=== PATIENT | male | born 1935 | race Caucasian/White ===

== ENCOUNTER 2022-11-26 11:58 | Inpatient (IN) | payer OTHER ==
--- OUTSIDE RECORDS SUMMARY | 2022-11-28 15:45 | XMS REPORT | Continuity of Care Document ---
:1935 Author Organization [facility] t Address [address] [facility] [facility] [place] [address] Care Team Providers Name Role Phone Nilton Huerta Primary Care Physician Bryan Guerra Attending Clinician Unavailable RYAN SHER Attending Clinician Unavailable STANISLAW REYES Attending Clinician Unavailable Simone VILLANUEVA, Gage Attending Clinician Nilton Paiz DO Attending Clinician Gilmer Erazo Attending Clinician Enzo VILLANUEVA, Marion Rose Attending Clinician Stanislaw Reyes MD Attending Clinician [phone] Pob, [facility] Attending Clinician Unavailable Gilmer Harrison MD Attending Clinician GILMER HARRISON Attending Clinician Unavailable ANDRE BRICE Attending Clinician Unavailable Andre Brice DO Attending Clinician Doctor Unassigned, [place] Attending Clinician Unavailable Apurva THOMAS, Kareem Morales Attending Clinician Unavailable Beata Vazquez MD Attending Clinician BEATA VAZQUEZ Attending Clinician Unavailable Vaccine, [facility] Attending Clinician Unavailable Zaid óLpez DO Attending Clinician ZAID LÓPEZ Attending Clinician Unavailable Prince Joe Attending Clinician Unavailable GAGE NICHOLS Attending Clinician Unavailable Gilmer Henley MD Attending Clinician GILMER HENLEY Attending Clinician Unavailable MISSY LEMOS Attending Clinician Unavailable Beata FLOREZ, Folushlatisha F Attending Clinician Cori Beauchamp MD Attending Clinician Kalee Cho MD Attending Clinician Missy Lemos MD Attending Clinician Nikhil Ge MD Attending Clinician Nurse, [facility] Pob Immunization Attending Clinician Unavailable Adry Hill RN Attending Clinician Ryan Sher MD Attending Clinician Ari Hernandez MD Attending Clinician Jose Case CRNA Attending Clinician Jonh Cárdenas MD Attending Clinician Only, [facility] Test Attending Clinician Unavailable Emil Warner Attending Clinician Unavailable AMBERLY GALLEGO Attending Clinician Unavailable FITZ BLACKWELL Attending Clinician Unavailable EMIL WARNER Attending Clinician Unavailable Emil Warner Admitting Clinician Unavailable RYAN SHER Admitting Clinician Unavailable GILMER ERAZO Admitting Clinician Unavailable Gilmer Erazo Admitting Clinician ANDRE BRICE Admitting Clinician Unavailable Nilton Huerta Admitting Clinician Unavailable Beata Vazquez MD Admitting Clinician BEATA VAZQUEZ Admitting Clinician Unavailable Prince Joe Admitting Clinician Unavailable GAGE NICHOLS Admitting Clinician Unavailable Bryan Guerra Admitting Clinician Unavailable CORI BEAUCHAMP Admitting Clinician Unavailable Cori Beauchamp MD Admitting Clinician Ari Hernandez MD Admitting Clinician KNOW, DOES_NOT Admitting Clinician Unavailable Payers Payer Name Policy Type Policy Number Effective Date Expiration Date Eleanor valdivia MEDICARE PART A [id number] 1999 \\T\\ B 00:00:00 [employer] [id number] 2019 00:00:00 COMMERCIAL [id number] 1999 1999 NON-CONTRACT 00:00:00 00:00:00 GENERIC Problems Condition Condition Condition Status Onset Resolution Last Treating Co mments Source Name Details Category Date Date Treatment Clinician Date Syncope, Syncope, Disease Active 2022-02 Unive rs unspecifie unspecifie 0-10 it y of d syncope d syncope 00:00: [place]ry s type type 00 Medical Branch Syncope Syncope Disease Active Univers and and 7-12 ity of collapse collapse 00:00: [place] 00 Medical Branch 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-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 00:00: [place] involving involving 00 Med[place]oyd [place] coronary coronary artery of artery of [place] heart heart without without angina angina pectoris pectoris Chronic Chronic Disease Active Univers atrial atrial 7-11 ity of fibrillati fibrillati 00:[place] 00 Medical [place] Pacemaker Pacemaker Disease Active Uni vers 7-11 ity of 00:00: [place] 00 Medical Branch 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 00:00: [place] stenosis stenosis 00 Medica l Branch CHARISSA (acute CHARISSA (acute Disease Active U marzena kidney kidney 7-11 ity of injury) injury) 00:00: [place] 00 Medical Branch 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-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 00:00: [place] involving involving 00 Medi loyd [place] coronary coronary artery of artery of [place] heart heart without without angina angina pectoris pectoris Dizziness Dizziness Disease Active Uni vers 7-10 ity of 00:00: [place] [facility] GIB GIB Disease Active 2020-02 Univers (gastroint (gastroint 1-29 it y of estinal estinal 00:00: [place] bleeding) bleeding) 00 Medi loyd Branch Symptomati Symptomati Disease Active U nivers c anemia c anemia 8-13 ity of 00:00: [place] 00 Medical Branch 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, carcinoma, 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 00:00: [facility] 00 l Renal mass Renal mass Disease Active M ethodi 08-01 st 00:00: [facility] 00 l Syncope Syncope Disease Active 2014-02 Univers 2-24 ity of 00:00: [place] [facility] Essential Essential Disease Active 2014-02 Uni vers hypertensi hypertensi 2-24 it y of on on 00:00: [place] [facility] 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 2-24 ity of mellitus mellitus 00:00: [place] [facility] Renal Renal Disease Active 2014-02 Univers failure failure 2-24 ity of 00:00: [place] 00 Medical Branch Allergies, Adverse Reactions, Alerts Allergy Allergy Status Severity Reaction(s) Onset Inactive Treating Comm ents Source Name Type Date Date Clinician Kenna Starkeyensi Active Method i in G ty to 06-01 st adverse 00:00: Hospita reaction 00 l s to drug Penicill Propensi Active Other - See 2012-02 Passed U nivers ins ty to comments 2-09 out per ity of adverse 00:00: patient [place] reaction 00 Medical s to Branch drug Penicill Propensi Active Other - See 2012-02 Passed U nivers ins ty to comments 2-09 out per ity of adverse 00:00: patient [place] reaction 00 Medical s to Branch drug PENICILL Drug Active Other-Cmnt 2012-02 Univ ers INS Class 2-09 ity of 00:00: [place] 00 Medical Branch Penicill Propensi Active Other - See 2012-02 Passed U nivers ins ty to comments 2-09 out per ity of adverse 00:00: patient [place] reaction Medical s to Branch drug No Known DA Active U 2006-02 [facility] Contrast 0 [facility] Allergie 00:00: [address] No Known DA Active U 2006-02 [facility] Food 0- [place] Allergie 00:00: [address] No Known DA Active U 2006-02 [facility] Other 0- Allergie 00:00: [address] PENICILL DA Active U 2006-02 [facility] IN 0 00:00: [address] Family History Family Member Diagnosis Comments Start Date Stop Date Source Natural father Heart disease [facility] Natural mother Heart disease [facility] Social History Social Habit Start Date Stop Date Quantity Comments Source Sexual orientation [facility] History of tobacco Passive smoker Un iversity of use [facility] Gender identity [facility]it y [place] [facility] History of Social 2022-04-20 2022-04-[address] function 00:00:00 00:00:00 Hospital Exposure to 2021-08-11 2021-08-21 Not sure [facility] SARS-CoV-2 (event) 00:00:00 05:34:00 [facility] Tobacco use and 2021-08-21 2021-08-21 Smokeless tobacco Un iversity of exposure 00:00:00 00:00:00 non-user [facility] Alcohol intake 2019-09-26 2019-09-26 Current drinker [facility] 00:00:00 00:00:00 of [facility] (finding) Alcohol Comment 2017-08-04 2017-08-04 occasional Sikhism 00:00:00 00:00:00 Hospital Sex Assigned At [birth year] Sikhism 00:00:00 00:00:00 Hospital Smoking Status Start Date Stop Date Source Never smoked tobacco [facility] [place] [facility] Medications Ordered Filled Start Stop Current Ordering Indication Dosage Frequency Signature Comments Components Source Medication Medication Date Date Medication? Clinician (SIG) Name Name NaCl 0.9% 2022-02 No 500mL at 999 Univ ers (NS) bolus 0-17 10-17 mL/hr, 500 it y of infusion 15:00: 14:13 mL, IV [place] 500 mL 00 :00 Piggyback, Medical ONCE, 1 Branch dose, On Sun11/28/22 at 1000, STAT pioglitazon 2022-02 Yes 15mg Take 15 mg Univers e 15 mg 0-17 by mouth ity of tablet 14:16: daily. [place] [address] Medical Branch aspirin 81 2022-02 Yes 81mg Take 81 mg U nivers mg chewable 0-17 by mouth ity of tablet 14:16: daily. [address] Branch midodrine 5 2022-02 Yes 5mg Take 1 Univ ers mg tablet 0-17 tablet by ity o f 14:16: mouth in [place] [address] the Medical morning Branch and 1 tablet at noon and 1 tablet in the evening. digoxin 125 2022-02 Yes 125ug Take 1 Uni vers mcg (0.125 0-17 tablet by ity of mg) tablet 14:16: mouth in [facility] 36 the Medical morning. Branch clopidogreL 2022-02- No 75mg Take 75 mg Univers 75 mg 0-17 10-17 by mouth ity of tablet 11:33: 00:00 daily. [place] 48 :00 [facility] Branch thiamine 2022-02- No 100mg IV Univers (VITAMIN 0-15 10-15 Piggyback, ity of B1) 100 mg 14:00: 14:48 DAILY, 1 [place] NaCl 00 :00 dose, Medical 0.9% (NS) First dose Bran ch piggyback on 11/26/22 at 0900, 50 mL thiamine 2022-02- No 100mg 100 mg, Univ ers (VITAMIN 0-14 10-14 Oral, ity of B1) tablet 14:00: 17:44 DAILY, [place] 100 mg 00 :02 First dose Medical on Sun Branch 11/25/22 at 0900, Until Discontinu ed, Routine NaCl 0.9% 2022-02 No 250mL at 999 Univ ers (NS) IV 0-13 10-13 mL/hr, IV ity of infusion 17:30: 17:37 Infusion, [place] as 250 mL 00 :00 ONCE, 1 Medical dose, On Branch 11/24/22 at 1230, Routine sennosides 2022-02 Yes 8.6mg 8.6 mg, Uni vers (SENOKOT) 0-13 Oral, ity of tablet 8.6 14:00: DAILY, [place] mg 00 First dose Medical on Fri Branch 11/24/22 at 0900, Until Discontinu ed, Routine polyethylen 2022-02 Yes 17g 17 g, Unive rs e glycol 0-13 Oral, ity of 3350 powder 14:00: DAILY, [place] 17 g 00 First dose Medical on Sun Branch 11/24/22 at 0900, Until Discontinu ed, Routine atorvastati 2022-02 Yes 40mg 40 mg, Univ ers n (LIPITOR) 0-12 Oral, QHS, it y of tablet 40 02:00: First dose [place] mg 00 on Sun Medical 11/22/22 Branch at 2100, Until Discontinu ed, Routine sulfur 2022-02- No 5mL 5 mL, Univers hexafluorid 011-22 Intravenou i ty of e microsphr 14:50: 14:50 s, ONCE, 1 [place] (LUMASON) 00 :00 dose, On Medica l injection 5 Sun Branch mL 11/22/22 at 0950, Routine
hourly team members approving Restricted medication : REN GREENE pioglitazon 2022-02 Yes 15mg 15 mg, Univ ers e (ACTOS) 0-11 Oral, ity of tablet 15 14:00: DAILY, [place] mg 00 First dose Medical on Sun Branch 11/22/22 at 0900, Until Discontinu ed, Routine digoxin 2022-02 Yes 125ug 125 mcg, Unive rs (LANOXIN) 0-11 Oral, ity of tablet 125 14:00: DAILY, [place] mcg 00 First dose Medical on Sun Branch 11/22/22 at 0900, Until Discontinu ed, Routine aspirin 2022-02 Yes 81mg 81 mg, Univers chewable 0-11 Oral, ity of tablet 81 14:00: DAILY, [place] mg 00 First dose Medical on Sun Branch 11/22/22 at 0900, Until Discontinu ed, Routine clopidogreL 2022-02- No 75mg 75 mg, Uni vers (PLAVIX) 75 0-14 Oral, ity of mg tablet 14:00: 11:43 DAILY, [place] 75 mg 00 :13 First dose Medical on Sun Branch 11/22/22 at 0900, Until Discontinu ed, Routine docusate 2022-02 No 100mg 100 mg, Univ ers (COLACE) 0-12 22- Oral, ity of capsule 100 14:00: 04:20 DAILY, [place] as mg 00 :32 First dose Medical on [facility] 11/22/22 at 0900, Until Discontinu ed, Routine midodrine 2022-02 Yes 5mg 5 mg, Univers (PROAMATINE 0-11 Oral, TID, it y of ) tablet 5 13:00: First dose [place] mg 00 on [facility] 11/22/22 Branch at 0800, Until Discontinu ed, Routine levothyroxi 2022-02 Yes 137ug 137 mcg, U nivers ne 0-11 Oral, ity of (SYNTHROID) 11:00: QAM-0600, [place] tablet 137 00 First dose Med ical mcg on Sun [place] 11/22/22 at 0600, Until Discontinu ed, Routine pioglitazon 2022-02 Yes 15mg Take 15 mg Univers e 15 mg 0-11 by mouth ity of tablet 03:49: daily. [address] aspirin 81 2022-02 Yes 81mg Take 81 mg U nivers mg chewable 0-11 by mouth ity of tablet 03:49: daily. [address] clopidogreL 2022-02 Yes 75mg Take 75 mg Univers 75 mg 0-11 by mouth ity of tablet 03:49: daily. [address] heparin 2022-02 Yes 5000U 5,000 Univers (porcine) 0-11 Units, ity of injection 03:00: Subcutaneo [place] 5,000 Units 00 us, Q8H, Medi loyd First dose Branch on 11/21/22 at 2200, Until Discontinu ed, Routine Sliding 2022-02 Yes Subcutaneo Univ ers Scale 0-10 us, TID ity of Insulin - 22:00: MEALS+HS, [place] as Lispro 00 First dose Medical (HumaLOG) on [facility] 11/21/22 at 1700, Until Discontinu ed, Routine glucagon 2022-02 Yes 1mg 1 mg, Univers (GLUCAGEN 0-10 Intramuscu ity of DIAGNOSTIC 21:20: [place], PRN, [place] KIT) 34 Starting Medical injection 1 on [facility] mg 11/21/22 at 1620, Until Discontinu ed, LAUREN, Blood Glucose < or = 70 mg/dL and patient is NPO, unable to swallow or has mental changes. dextrose 50 2022-02 Yes 25mL 25 mL, Univ ers % in water 0-10 Slow IV ity of (D50W) 21:20: Push, PRN, [place] injection 34 Starting Medica l 25 mL on [facility] 11/21/22 at 1620, Until Discontinu ed, LAUREN, Blood Glucose < or = 70 mg/dL and patient is NPO, unable to swallow or has mental status changes. ondansetron 2022-02 Yes 4mg 4 mg, Slow Univers (ZOFRAN 0-10 IV Push, ity of (PF)) 21:20: Q6HPRN, [place] injection 4 34 Starting Medi loyd mg on [facility] 11/21/22 at 1620, Until Discontinu ed, Routine, Nausea and Vomiting (N/V) acetaminoph 2022-02 Yes 650mg 650 mg, Un lolis en 0-10 Oral, ity of (TYLENOL) 21:20: Q6HPRN, [place] tablet 650 34 Starting Medic al mg on [facility] 11/21/22 at 1620, Until Discontinu ed, Routine, Pain (scale 1-3) gadobenate 2022- No [id number] .2mL/kg 0.2 mL/kg, Univers dimeglumine 08-28 Intravenou i ty of (MULTIHANCE 20:15: 20:10 s, ONCE, 1 [place] -20 mL) 00 :00 dose, On Medical injection [facility] Branch 0.2 mL/kg 08/28/22 at 1515, Routine NaCl 0.9% 2021- No 500mL at 999 Univ ers (NS) bolus 08-24-13 mL/hr, 500 it y of infusion 16:30: 15:36 mL, IV [place] 500 mL 00 :00 Piggyback, Medical ONCE, 1 Branch dose, On Sun08/24/21 at 1130, STAT pioglitazon Yes 15mg Take 15 mg Univers e 15 mg 7-13 by mouth ity of tablet 12:28: daily. [address] aspirin 81 0 Yes 81mg Take 81 mg U nivers mg chewable -13 by mouth ity of tablet 12:28: daily. [address] clopidogreL 2022-0 Yes 75mg Take 75 mg Univers 75 mg 7-13 by mouth ity of tablet 12:28: daily. [address] pioglitazon 2021-0 Yes 15mg Take 15 mg Univers e 15 mg 7-13 by mouth ity of tablet 12:28: daily. [address] aspirin 81 0 Yes 81mg Take 81 mg U nivers mg chewable 7-13 by mouth ity of tablet 12:28: daily. [address] clopidogreL 2021-0 Yes 75mg Take 75 mg Univers 75 mg 7-13 by mouth ity of tablet 12:28: daily. [address] pioglitazon 0 Yes 15mg Take 15 mg Univers e 15 mg 7-13 by mouth ity of tablet 12:28: daily. [address] aspirin 81 0 Yes 81mg Take 81 mg U nivers mg chewable 7-13 by mouth ity of tablet 12:28: daily. [address] clopidogreL 2021-0 Yes 75mg Take 75 mg Univers 75 mg 7-13 by mouth ity of tablet 12:28: daily. [address] pioglitazon 2021-0 Yes 15mg Take 15 mg Univers e 15 mg 7-13 by mouth ity of tablet 12:28: daily. [address] aspirin 81 0 Yes 81mg Take 81 mg U nivers mg chewable 7-13 by mouth ity of tablet 12:28: daily. [address] clopidogreL 2021-0 Yes 75mg Take 75 mg Univers 75 mg 7-13 by mouth ity of tablet 12:28: daily. [address] pioglitazon 2021-0 Yes 15mg Take 15 mg Univers e 15 mg 7-13 by mouth ity of tablet 12:28: daily. [address] aspirin 81 2021-0 Yes 81mg Take 81 mg U nivers mg chewable 7-13 by mouth ity of tablet 12:28: daily. [address] clopidogreL 2021-0 Yes 75mg Take 75 mg Univers 75 mg 7-13 by mouth ity of tablet 12:28: daily. [address] pioglitazon 2021-0 Yes 15mg Take 15 mg Univers e 15 mg 7-13 by mouth ity of tablet 12:28: daily. [address] aspirin 81 2022-0 Yes 81mg Take 81 mg U nivers mg chewable 7-13 by mouth ity of tablet 12:28: daily. [address] clopidogreL 2021-0 Yes 75mg Take 75 mg Univers 75 mg 7-13 by mouth ity of tablet 12:28: daily. [address] pioglitazon 2021-0 Yes 15mg Take 15 mg Univers e 15 mg 7-13 by mouth ity of tablet 12:28: daily. [address] aspirin 81 0 Yes 81mg Take 81 mg U nivers mg chewable 7-13 by mouth ity of tablet 12:28: daily. [address] clopidogreL 2021-0 Yes 75mg Take 75 mg Univers 75 mg 7-13 by mouth ity of tablet 12:28: daily. [address] pioglitazon 2021-0 Yes 15mg Take 15 mg Univers e 15 mg 7-13 by mouth ity of tablet 12:28: daily. [address] aspirin 81 0 Yes 81mg Take 81 mg U nivers mg chewable 7-13 by mouth ity of tablet 12:28: daily. [address] clopidogreL 2021-0 Yes 75mg Take 75 mg Univers 75 mg 7-13 by mouth ity of tablet 12:28: daily. [address] pioglitazon 2021-0 Yes 15mg Take 15 mg Univers e 15 mg 7-13 by mouth ity of tablet 12:28: daily. [address] aspirin 81 2021-0 Yes 81mg Take 81 mg U nivers mg chewable 7-13 by mouth ity of tablet 12:28: daily. [address] clopidogreL 2021-0 Yes 75mg Take 75 mg Univers 75 mg 7-13 by mouth ity of tablet 12:28: daily. [address] pioglitazon 2021-0 Yes 15mg Take 15 mg Univers e 15 mg 7-13 by mouth ity of tablet 12:28: daily. [address] aspirin 81 2021-0 Yes 81mg Take 81 mg U nivers mg chewable 7-13 by mouth ity of tablet 12:28: daily. [address] clopidogreL 2021-0 Yes 75mg Take 75 mg Univers 75 mg 7-13 by mouth ity of tablet 12:28: daily. [address] pioglitazon Yes 15mg Take 15 mg Univers e 15 mg 7-13 by mouth ity of tablet 12:28: daily. [address] aspirin 81 Yes 81mg Take 81 mg U nivers mg chewable 7-13 by mouth ity of tablet 12:28: daily. [address] clopidogreL Yes 75mg Take 75 mg Univers 75 mg 7-13 by mouth ity of tablet 12:28: daily. [address] pioglitazon Yes 15mg Take 15 mg Univers e 15 mg 7-13 by mouth ity of tablet 12:28: daily. [address] aspirin 81 Yes 81mg Take 81 mg U nivers mg chewable 7-13 by mouth ity of tablet 12:28: daily. [address] clopidogreL Yes 75mg Take 75 mg Univers 75 mg 7-13 by mouth ity of tablet 12:28: daily. [address] carvediloL 2021- No 12.5mg Take 12.5 Univers 12.5 mg 7-13 07-13 mg by ity of tablet 10:22: 00:00 mouth 2 [place] 46 :00 (two) Medical times Branch daily with meals. metoprolol 2021- No 50mg Take 50 mg Univers succinate -24 08-13 by mouth ity o f XL 50 mg 24 10:22: 00:00 daily. Ricardo as hr tablet 46 :00 Metoprolol [facility] midodrine 5 2021- No [id number] 5mg Take 1 Univers mg tablet 7-24 09- tablet by ity of 00:00: 04:59 mouth in [place] 00 :00 the Medical morning Branch and 1 tablet at noon and 1 tablet in the evening. Take with meals. Do all this for 30 days. midodrine 5 2021- No [id number] 5mg Take 1 Univers mg tablet 7-13 -13 tablet by ity of 00:00: 04:59 mouth in [place] 00 :00 the Medical morning Branch and 1 tablet at noon and 1 tablet in the evening. Take with meals. Do all this for 30 days. midodrine 5 2021- No [id number] 5mg Take 1 Univers mg tablet 08-2413 tablet by ity of 00:00: 04:59 mouth in [place] 00 :00 the Medical morning Branch and 1 tablet at noon and 1 tablet in the evening. Take with meals. Do all this for 30 days. NaCl 0.9% 0 2021- No 500mL at 100 [facility] ers (NS) bolus 08-23 07-12 mL/hr, 500 it y of infusion 16:45: 16:32 mL, IV [place] 500 mL 00 :00 Infusion, Medical ONCE, 1 Branch dose, On Sun08/23/21 at 1145, LAUREN midodrine Yes 5mg 5 mg, Univers (PROAMATINE 08-22 Oral, TID ity of ) tablet 5 22:00: MEALS, [place] mg 00 First dose Medical (after last modificati on) on Sun08/22/21 at 1700, Until Discontinu ed, Routine NaCl 0.9% 2021- No 500mL at 999 [facility] ers (NS) bolus 08-22-11 mL/hr, 500 it y of infusion 14:45: 13:37 mL, IV [place] 500 mL 00 :00 Piggyback, Medical ONCE, 1 Branch dose, On Sun08/22/21 at 0945, STAT clopidogreL 0 Yes 75mg 75 mg, [facility] ers (PLAVIX) 75 08-22 Oral, ity of mg tablet 14:00: DAILY, [place] 75 mg 00 First dose Medical on Sun [place] 08/22/21 at 0900, Until Discontinu ed, Routine aspirin 0 Yes 81mg 81 mg, Univers chewable 08-22 Oral, ity of tablet 81 14:00: DAILY, [place] mg 00 First dose Medical on Sun [place] 08/22/21 at 0900, Until Discontinu ed, Routine docusate 0 Yes 100mg 100 mg, Unive rs (COLACE) -11 Oral, ity of capsule 100 14:00: DAILY, [place] mg 00 First dose Medical on [facility] 08/22/21 at 0900, Until Discontinu ed, Routine levothyroxi 2021-0 Yes 137ug 137 mcg, U nivers ne 7-11 Oral, ity of (SYNTHROID) 11:00: QAM-0600, [place] tablet 137 00 First dose Med ical mcg on [facility] 08/22/21 at 0600, Until Discontinu ed, Routine atorvastati Yes 40mg 40 mg, Univ ers n (LIPITOR) 711 Oral, QHS, it y of tablet 40 02:00: First dose [place] mg 00 on [facility] 08/21/21 at Branch 2100, Until Discontinu ed, Routine glimepiride Yes 4mg 4 mg, Unive rs (AMARYL) 711 Oral, BID, ity o f tablet 4 mg 01:00: First dose [place] 00 on [facility] 08/21/21 at Branch 2000, Until Discontinu ed, Routine NaCl 0.9% 2021- No 1000mL at 75 [facility] ers (NS) IV 08-22 07-11 mL/hr, IV ity of infusion 00:00: 23:09 Infusion, [place] as 1,000 mL 00 :00 CONTINUOUS Medic al , Starting Branch on [place] 08/21/21 at 1900, Until [facility] 08/22/21 at 1809, Routine carvediloL 2021- No 12.5mg 12.5 mg, Univers (COREG) 08-21 07-11 Oral, BID ity of tablet 12.5 22:00: 13:30 MEALS, [place] mg 00 :46 First dose Medical on [facility] 08/21/21 at 1700, Until Discontinu ed, Routine Sliding Yes Subcutaneo [facility] ers Scale 7-10 us, AC+HS, ity of Insulin-Reg 21:30: First dose [place] ular + Fsbg 00 on [facility] l Testing 08/21/21 at Branch 1630, Until Discontinu ed, Routine dextrose Yes 250mL 250 mL, IV Un lolis 10% (D10W) 7-10 Infusion, ity of bolus 21:15: PRN - SEE [place] infusion 33 INSTRUCTIO Medic al 250 mL , Branch Administer over 60 Minutes, Other, If blood glucose is < or = 70 mg/dL and patient is unable to swallow or has mental status changes, Starting on [place] 08/21/21 at 1615
If blood glucose is < or = 70 mg/dL and patient is unable to swallow or has mental status changes (Give glucagon order if patient needs fluid restrictio n): IF IV access available: Dextrose 10%. 1. 125 mL (? bag) of D10W IV infusion - equivalent to 12.5 g dextrose 2. Blood glucose - draw blood glucose 15 minutes after D10W Administra tion. 3. If blood glucose is < 80 mg/dL, repeat.
glucagon 0 Yes 1mg 1 mg, Univers (GLUCAGEN 7-10 Intramuscu ity of DIAGNOSTIC 21:15: [place], PRN, [place] KIT) 18 Starting Medical injection 1 on [facility] mg 08/21/21 at 1615, Until Discontinu ed, LAUREN, Blood Glucose < or = 70 mg/dL and patient is unable to swallow or has mental changes. NaCl 0.9% 2021- No 500mL at 999 Univ ers (NS) bolus 08-21 07-10 mL/hr, 500 it y of infusion 19:00: 20:21 mL, IV [place] 500 mL 00 :00 Infusion, Medical ONCE, 1 Branch dose, On [place] 08/21/21 at 1400, STAT ondansetron 0 Yes 4mg 4 mg, Slow Univers (ZOFRAN 7-10 IV Push, ity of (PF)) 18:49: Q6HPRN, [place] injection 4 47 Starting Medi loyd mg on [facility] 08/21/21 at 1349, Until Discontinu ed, Routine, Nausea and Vomiting (N/V) acetaminoph 0 Yes 650mg 650 mg, Un lolis en 7-10 Oral, ity of (TYLENOL) 18:49: Q6HPRN, [place] tablet 650 40 Starting Medic al mg on [facility] 08/21/21 at 1349, Until Discontinu ed, Routine, Pain (scale 1-3) MULTIVITAMI 0 2021- No Take by Un lolis N ORAL 7-10 07-10 mouth. ity of 16:12: 00:00 [place] 58 :00 [facility] Branch DOCOSAHEXAN 2021- No Take by Un lolis OIC 7-10 07-10 mouth. ity of ACID/EPA 16:12: 00:00 [place] (FISH OIL 58 :00 Medical ORAL) Branch ERGOCALCIFE 2021- No Take by Un lolis ROL, 08-2110 mouth. ity of VITAMIN D2, 16:12: 00:00 [place] (VITAMIN D 58 :00 Medical ORAL) Branch ascorbic 2021- No 500mg Take 500 Uni vers acid, 08-21-10 mg by ity of vitamin C, 16:12: 00:00 mouth [place] 500 mg 58 :00 daily. Medical tablet Branch vitamin 2021- No 1000ug Take 1,000 U nivers B-12 1,000 08-21-10 mcg by ity of mcg tablet 16:12: 00:00 mouth [place] 58 :00 daily. Medical Branch NaCl 0.9% No IV Univers (NS) 08-21 Infusion, ity of PEDIATRIC 13:00: 22:49 at 75 [place] IV infusion 00 :43 mL/hr, Medica l CONTINUOUS Branch , Starting on 08/21/21 at 0800, Until 08/21/21 at 1749, Routine metoprolol 2020-02 Yes [id number] 12.5mg Take 0.5 Univers succinate 2-03 tablets by ity of XL 25 mg 24 00:00: mouth [place] hr tablet 00 daily. Medical Branch levothyroxi 2020-02 Yes [id number] 137ug Take 1 Univers ne 137 mcg 2-03 tablet by ity of tablet 00:00: mouth [place] 00 every Medical morning. Branch levothyroxi 2020-02 Yes [id number] 137ug Take 1 Univers ne 137 mcg 2-03 tablet by ity of tablet 00:00: mouth [place] 00 every Medical morning. Branch levothyroxi 2020-02 Yes [id number] 137ug Take 1 Univers ne 137 mcg 2-03 tablet by ity of tablet 00:00: mouth [place] 00 every Medical morning. Branch levothyroxi 2020-02 Yes [id number] 137ug Take 1 Univers ne 137 mcg 2-03 tablet by ity of tablet 00:00: mouth [place] 00 every Medical morning. Branch levothyroxi 2020-02 Yes [id number] 137ug Take 1 Univers ne 137 mcg 2-03 tablet by ity of tablet 00:00: mouth [place] 00 every Medical morning. Branch levothyroxi 2020-02 Yes [id number] 137ug Take 1 Univers ne 137 mcg 2-03 tablet by ity of tablet 00:00: mouth [place] 00 every Medical morning. Branch levothyroxi 2020-02 Yes [id number] 137ug Take 1 Univers ne 137 mcg 2-03 tablet by ity of tablet 00:00: mouth [place] 00 every Medical morning. Branch levothyroxi 2020-02 Yes [id number] 137ug Take 1 Univers ne 137 mcg 2-03 tablet by ity of tablet 00:00: mouth [place] 00 every Medical morning. Branch levothyroxi 2020-02 Yes [id number] 137ug Take 1 Univers ne 137 mcg 2-03 tablet by ity of tablet 00:00: mouth [place] 00 every Medical morning. Branch levothyroxi 2020-02 Yes [id number] 137ug Take 1 Univers ne 137 mcg 2-03 tablet by ity of tablet 00:00: mouth [place] 00 every Medical morning. Branch levothyroxi 2020-02 Yes [id number] 137ug Take 1 Univers ne 137 mcg 2-03 tablet by ity of tablet 00:00: mouth [place] 00 every Medical morning. Branch levothyroxi 2020-02 Yes [id number] 137ug Take 1 Univers ne 137 mcg 2-03 tablet by ity of tablet 00:00: mouth [place] 00 every Medical morning. Branch levothyroxi 2020-02 Yes [id number] 137ug Take 1 Univers ne 137 mcg 2-03 tablet by ity of tablet 00:00: mouth [place] 00 every Medical morning. Branch levothyroxi 2020-02 Yes [id number] 137ug Take 1 Univers ne 137 mcg 2-03 tablet by ity of tablet 00:00: mouth [place] 00 every Medical morning. Branch levothyroxi 2020-02 Yes [id number] 137ug Take 1 Univers ne 137 mcg 2-03 tablet by ity of tablet 00:00: mouth [place] 00 every Medical morning. Branch metoprolol 2020-02 Yes [id number] 12.5mg Take 0.5 Univers succinate 2-03 tablets by ity of XL 25 mg 24 00:00: mouth [place] hr tablet 00 daily. Medical Branch levothyroxi 2020-02 Yes [id number] 137ug Take 1 Univers ne 137 mcg 2-03 tablet by ity of tablet 00:00: mouth [place] 00 every Medical morning. Branch metoprolol 2020-02 Yes [id number] 12.5mg Take 0.5 Univers succinate 2-03 tablets by ity of XL 25 mg 24 00:00: mouth [place] hr tablet 00 daily. Medical Branch levothyroxi 2020-02 Yes [id number] 137ug Take 1 Univers ne 137 mcg 2-03 tablet by ity of tablet 00:00: mouth [place] 00 every Medical morning. Branch metoprolol 2020-02 Yes [id number] 12.5mg Take 0.5 Univers succinate 2-03 tablets by ity of XL 25 mg 24 00:00: mouth [place] hr tablet 00 daily. [facility] Branch levothyroxi 2020-02 Yes [id number] 137ug Take 1 Univers ne 137 mcg 2-03 tablet by ity of tablet 00:00: mouth [place] 00 every Medical morning. Branch metoprolol 2020-02 Yes [id number] 12.5mg Take 0.5 Univers succinate 2-03 tablets by ity of XL 25 mg 24 00:00: mouth [place] hr tablet 00 daily. [facility] Branch levothyroxi 2020-02 Yes [id number] 137ug Take 1 Univers ne 137 mcg 2-03 tablet by ity of tablet 00:00: mouth [place] 00 every Medical morning. [place] metoprolol 2020-02 Yes [id number] 12.5mg Take 0.5 Univers succinate 2-03 tablets by ity of XL 25 mg 24 00:00: mouth [place] hr tablet 00 daily. [facility] levothyroxi 2020-02 Yes [id number] 137ug Take 1 Univers ne 137 mcg 2-03 tablet by ity of tablet 00:00: mouth [place] 00 every Medical morning. Branch metoprolol 2020-02 Yes [id number] 12.5mg Take 0.5 Univers succinate 2-03 tablets by ity of XL 25 mg 24 00:00: mouth [place] hr tablet 00 daily. [facility] Branch levothyroxi 2020-02 Yes [id number] 137ug Take 1 Univers ne 137 mcg 2-03 tablet by ity of tablet 00:00: mouth [place] 00 every Medical morning. [place] metoprolol 2020-02- No [id number] 12.5mg Take 0.5 Univers succinate 2-03 07-10 tablets by ity of XL 25 mg 24 00:00: 00:00 [place] hr tablet 00 :00 daily. Medical Branch pioglitazon 2020-02 Yes 15mg Take 15 mg Univers e 15 mg 2-02 by mouth ity of tablet 18:49: daily. [address] aspirin 81 2020-02 Yes 81mg Take 81 mg U nivers mg chewable 2-02 by mouth ity of tablet 18:49: daily. [address] ascorbic 2020-02 Yes 500mg Take 500 Univ ers acid, 2-02 mg by ity of vitamin C, 18:49: mouth [place] (VITAMIN C) 47 daily. Medica l 500 mg Branch tablet vitamin 2020-02 Yes 1000ug Take 1,000 Un lolis B-12 2-02 mcg by ity of (VITAMIN 18:49: mouth [place] B-12) 1,000 47 daily. Medica l mcg tablet Branch MULTIVITAMI 2020-02 Yes Take by Uni vers N ORAL 2-02 mouth. ity of 18:49: [address] DOCOSAHEXAN 2020-02 Yes Take by Uni vers OIC 2-02 mouth. ity of ACID/EPA 18:49: [place] (FISH OIL Medical ORAL) [place] ERGOCALCIFE 2020-02 Yes Take by Uni vers ROL, 2-02 mouth. ity of VITAMIN D2, 18:49: [place] (VITAMIN D [address] [place] [address] ORAL) [place] pioglitazon 2020-02 Yes 15mg Take 15 mg Univers e 15 mg 2-02 by mouth ity of tablet 18:49: daily. [address] aspirin 81 2020-02 Yes 81mg Take 81 mg U nivers mg chewable 2-02 by mouth ity of tablet 18:49: daily. [address] ascorbic 2020-02 Yes 500mg Take 500 Univ ers acid, 2-02 mg by ity of vitamin C, 18:49: mouth [place] (VITAMIN C) 47 daily. Medica l 500 mg Branch tablet vitamin 2020-02 Yes 1000ug Take 1,000 Un lolis B-12 2-02 mcg by ity of (VITAMIN 18:49: mouth [place] B-12) 1,000 47 daily. Medica l mcg tablet Branch MULTIVITAMI 2020-02 Yes Take by Uni vers N ORAL 2-02 mouth. ity of 18:49: [address] DOCOSAHEXAN 2020-02 Yes Take by Uni vers OIC 2-02 mouth. ity of ACID/EPA 18:49: [place] (FISH OIL 47 Medical ORAL) [place] ERGOCALCIFE 2020-02 Yes Take by Uni vers ROL, 2-02 mouth. ity of VITAMIN D2, 18:49: [place] (VITAMIN D 47 Medical ORAL) [place] pioglitazon 2020-02 Yes 15mg Take 15 mg Univers e 15 mg 2-02 by mouth ity of tablet 18:49: daily. [address] aspirin 81 2020-02 Yes 81mg Take 81 mg U nivers mg chewable 2-02 by mouth ity of tablet 18:49: daily. [address] ascorbic 2020-02 Yes 500mg Take 500 Univ ers acid, 2-02 mg by ity of vitamin C, 18:49: mouth [place] (VITAMIN C) 47 daily. Medica l 500 mg Branch tablet vitamin 2020-02 Yes 1000ug Take 1,000 Un lolis B-12 2-02 mcg by ity of (VITAMIN 18:49: mouth [place] B-12) 1,000 47 daily. Medica l mcg tablet [place] MULTIVITAMI 2020-02 Yes Take by Uni vers N ORAL 2-02 mouth. ity of 18:49: [address] DOCOSAHEXAN 2020-02 Yes Take by Uni vers OIC 2-02 mouth. ity of ACID/EPA 18:49: [place] (FISH OIL 47 Medical ORAL) [place] ERGOCALCIFE 2020-02 Yes Take by Uni vers ROL, 2-02 mouth. ity of VITAMIN D2, 18:49: [place] (VITAMIN D 47 Medical ORAL) [place] pioglitazon 2020-02 Yes 15mg Take 15 mg Univers e 15 mg 2-02 by mouth ity of tablet 18:49: daily. [address] aspirin 81 2020-02 Yes 81mg Take 81 mg U nivers mg chewable 2-02 by mouth ity of tablet 18:49: daily. [address] ascorbic 2020-02 Yes 500mg Take 500 Univ ers acid, 2-02 mg by ity of vitamin C, 18:49: mouth [place] (VITAMIN C) 47 daily. Medica l 500 mg Branch tablet vitamin 2020-02 Yes 1000ug Take 1,000 Un lolis B-12 2-02 mcg by ity of (VITAMIN 18:49: mouth [place] B-12) 1,000 47 daily. Medica l mcg tablet Branch MULTIVITAMI 2020-02 Yes Take by Uni vers N ORAL 2-02 mouth. ity of 18:49: [address] DOCOSAHEXAN 2020-02 Yes Take by Uni vers OIC 2-02 mouth. ity of ACID/EPA 18:49: [place] (FISH OIL 47 Medical ORAL) [place] ERGOCALCIFE 2020-02 Yes Take by Uni vers ROL, 2-02 mouth. ity of VITAMIN D2, 18:49: [place] (VITAMIN D 47 Medical ORAL) [place] pioglitazon 2020-02 Yes 15mg Take 15 mg Univers e 15 mg 2-02 by mouth ity of tablet 18:49: daily. [address] aspirin 81 2020-02 Yes 81mg Take 81 mg U nivers mg chewable 2-02 by mouth ity of tablet 18:49: daily. [address] ascorbic 2020-02 Yes 500mg Take 500 Univ ers acid, 2-02 mg by ity of vitamin C, 18:49: mouth [place] (VITAMIN C) 47 daily. Medica l 500 mg Branch tablet vitamin 2020-02 Yes 1000ug Take 1,000 Un lolis B-12 2-02 mcg by ity of (VITAMIN 18:49: mouth [place] B-12) 1,000 47 daily. Medica l mcg tablet Branch MULTIVITAMI 2020-02 Yes Take by Uni vers N ORAL 2-02 mouth. ity of 18:49: [address] DOCOSAHEXAN 2020-02 Yes Take by Uni vers OIC 2-02 mouth. ity of ACID/EPA 18:49: [place] (FISH OIL 47 Medical ORAL) [place] ERGOCALCIFE 2020-02 Yes Take by Uni vers ROL, 2-02 mouth. ity of VITAMIN D2, 18:49: [place] (VITAMIN D 47 Medical ORAL) [place] pioglitazon 2020-02 Yes 15mg Take 15 mg Univers e 15 mg 2-02 by mouth ity of tablet 18:49: daily. [address] aspirin 81 2020-02 Yes 81mg Take 81 mg U nivers mg chewable 2-02 by mouth ity of tablet 18:49: daily. [address] ascorbic 2020-02 Yes 500mg Take 500 Univ ers acid, 2-02 mg by ity of vitamin C, 18:49: mouth [place] (VITAMIN C) 47 daily. Medica l 500 mg Branch tablet vitamin 2020-02 Yes 1000ug Take 1,000 Un lolis B-12 2-02 mcg by ity of (VITAMIN 18:49: mouth [place] B-12) 1,000 47 daily. Medica l mcg tablet Branch MULTIVITAMI 2020-02 Yes Take by Uni vers N ORAL 2-02 mouth. ity of 18:49: [place] [address] Medical Branch DOCOSAHEXAN 2020-02 Yes Take by Uni vers OIC 2-02 mouth. ity of ACID/EPA 18:49: [place] (FISH OIL 47 Medical ORAL) Branch ERGOCALCIFE 2020-02 Yes Take by Uni vers ROL, 2-02 mouth. ity of VITAMIN D2, 18:49: [place] (VITAMIN D 47 Medical ORAL) Branch pioglitazon 2020-02 Yes 15mg Take 15 mg Univers e 15 mg 2-02 by mouth ity of tablet 18:49: daily. [address] aspirin 81 2020-02 Yes 81mg Take 81 mg U nivers mg chewable 2-02 by mouth ity of tablet 18:49: daily. [address] Branch ascorbic 2020-02 Yes 500mg Take 500 Univ ers acid, 2-02 mg by ity of vitamin C, 18:49: mouth [place] (VITAMIN C) 47 daily. Medica l 500 mg Branch tablet vitamin 2020-02 Yes 1000ug Take 1,000 Un lolis B-12 2-02 mcg by ity of (VITAMIN 18:49: mouth [place] B-12) 1,000 47 daily. Medica l mcg tablet Branch MULTIVITAMI 2020-02 Yes Take by Uni vers N ORAL 2-02 mouth. ity of 18:49: [place] [address] Medical Branch DOCOSAHEXAN 2020-02 Yes Take by Uni vers OIC 2-02 mouth. ity of ACID/EPA 18:49: [place] (FISH OIL 47 Medical ORAL) Branch ERGOCALCIFE 2020-02 Yes Take by Uni vers ROL, 2-02 mouth. ity of VITAMIN D2, 18:49: [place] (VITAMIN D 47 Medical ORAL) Branch atorvastati 2020-02 Yes [id number] 40mg Take 1 Univers n 40 mg 2-02 tablet by ity of tablet 00:00: mouth at [place] 00 bedtime. Medical Branch atorvastati 2020-02 Yes [id number] 40mg Take 1 Univers n 40 mg 2-02 tablet by ity of tablet 00:00: mouth at [place] [address] bedtime. [facility] Yes [id number] 40mg Take 1 Univers n 40 mg 2-02 tablet by ity of tablet 00:00: mouth at [place] [address] bedtime. Medical [facility]-02 Yes [id number] 40mg Take 1 Univers n 40 mg 2-02 tablet by ity of tablet 00:00: mouth at [place] [address] bedtime. [facility] 2020-02 Yes [id number] 40mg Take 1 Univers n 40 mg 2-02 tablet by ity of tablet 00:00: mouth at [place] [address] bedtime. [facility] 2020-02 Yes [id number] 40mg Take 1 Univers n 40 mg 2-02 tablet by ity of tablet 00:00: mouth at [place] [address] bedtime. [facility] 2020-02 Yes [id number] 40mg Take 1 Univers n 40 mg 2-02 tablet by ity of tablet 00:00: mouth at [place] [address] bedtime. [facility] 2020-02 Yes [id number] 40mg Take 1 Univers n 40 mg 2-02 tablet by ity of tablet 00:00: mouth at [place] [address] bedtime. [facility] 2020-02 Yes [id number] 40mg Take 1 Univers n 40 mg 2-02 tablet by ity of tablet 00:00: mouth at [place] [address] bedtime. [facility] 2020-02 Yes [id number] 40mg Take 1 Univers n 40 mg 2-02 tablet by ity of tablet 00:00: mouth at [place] [address] bedtime. Medical [facility]02 Yes [id number] 40mg Take 1 Univers n 40 mg 2-02 tablet by ity of tablet 00:00: mouth at [place] [address] bedtime. Medical Branch atorvasta 2020-02 Yes [id number] 40mg Take 1 Univers n 40 mg 2-02 tablet by ity of tablet 00:00: mouth at [place] [address] bedtime. Medical [facility] 2020-02 Yes [id number] 40mg Take 1 Univers n 40 mg 2-02 tablet by ity of tablet 00:00: mouth at [place] [address] bedtime. Medical [facility] 2020-02 Yes [id number] 40mg Take 1 Univers n 40 mg 2-02 tablet by ity of tablet 00:00: mouth at [place] [address] bedtime. Medical [facility] 2020-02 Yes [id number] 40mg Take 1 Univers n 40 mg 2-02 tablet by ity of tablet 00:00: mouth at [place] [address] bedtime. [facility]02 Yes [id number] 40mg Take 1 Univers n 40 mg 2-02 tablet by ity of tablet 00:00: mouth at [place] [address] bedtime. [facility] 2020-02 Yes [id number] 40mg Take 1 Univers n 40 mg 2-02 tablet by ity of tablet 00:00: mouth at [place] [address] bedtime. [facility] 2020-02 Yes [id number] 40mg Take 1 Univers n 40 mg 2-02 tablet by ity of tablet 00:00: mouth at [place] [address] bedtime. Medical [facility] 2020-02 Yes [id number] 40mg Take 1 Univers n 40 mg 2-02 tablet by ity of tablet 00:00: mouth at [place] [address] bedtime. Medical [facility] 2020-02 Yes [id number] 40mg Take 1 Univers n 40 mg 2-02 tablet by ity of tablet 00:00: mouth at [place] [address] bedtime. Medical [facility] 2020-02 Yes [id number] 40mg Take 1 Univers n 40 mg 2-02 tablet by ity of tablet 00:00: mouth at [place] [address] bedtime. Medical Branch rivaroxaban 2020-0 Yes 15mg Take 15 mg [facility] (Xarelto) 8-[address] 15 mg 08:34: Hosp[facility] tablet 28 l clopidogrel 2020-0 Yes 75mg QD Take 75 mg [facility] (PLAVIX) 75 8-[address] mg tablet 08:33: daily. Hospit a 15 l glimepiride 2020-0 Yes 4mg QD Take 4 mg M [facility] (AMARYL) 4 8-[address] MG tablet 08:32: daily Hospita 55 before l breakfast. simvastatin 2020-0 Yes 5mg QD Take 5 mg M [facility] (ZOCOR) 5 8-[address] MG tablet 08:32: nightly. [facility]osp [facility] 55 l carvedilol 2020-0 Yes 12.5mg Q.5D Take 12.5 [facility] (COREG) 8-[address] 12.5 MG 08:32: mouth 2 Hospita tablet 55 (two) l times a day with meals. levothyroxi 2020-0 Yes 137ug QD Take 137 M ethodi ne 8-[address] (SYNTHROID, 08:32: mouth Hospi ta LEVOXYL) 55 every l 137 mcg morning. tablet multivitami 2020-0 Yes 1{tbl} QD Take 1 Me thodi n with 8-[address] minerals 08:32: mouth [facility]ospita tablet 55 daily. l omega 2020-0 Yes Take by [facility] 3-dha-epa-f 8-[address] saman oil 08:32: Hospita (FISH OIL) 55 l 100-160-1,0 00 mg capsule vit B 2020-0 Yes Take by [facility] complex 8-[address] no.12/niaci 08:32: Hospit a n,B3, 55 l (VITAMIN B COMPLEX NO.12-NIACI N ORAL) ascorbic 2020-0 Yes 100mg QD Take 100 Meth brady acid, 8-[address] vitamin C, 08:32: mouth Hospit a (vitamin C) 55 daily. l 100 MG tablet magnesium 2020-0 Yes 250mg Q.5D Take 250 Met hodi oxide 500 8-[address] mg tablet 08:32: mouth 2 Hospi ta 55 (two) l times a day. cholecalcif 2020-0 Yes 5000U QD Take 5,000 [facility] rylan, 8-[address] vitamin D3, 08:32: mouth Hospi ta (VITAMIN 55 nightly. l D3) 1,000 unit tablet cyanocobala 2020-0 Yes 1000ug Inject Me thodi min 1,000 8-14 1,[address] mcg/mL 08:32: into the Hospita injection 55 shoulder, l thigh, or buttocks once. cyanocobala 2020-0 Yes 1000ug QD Take 1,000 [facility] min 8-[address] (VITAMIN 08:32: mouth Hospita B-12) 1000 55 daily. l MCG tablet flecainide 2020-0 Yes 100mg Q.5D Take 100 Me thodi (TAMBOCOR) 8-[address] 100 MG 08:32: mouth 2 Hospita tablet 55 (two) l times a day. losartan 2020-0 Yes 100mg QD Take 100 Meth brady (COZAAR) 8-[address] 100 MG 08:32: mouth [facility]ospita tablet 55 daily. l furosemide 2020-0 Yes 40mg Q.5D Take 40 mg M ethodi (LASIX) 40 8-[address] mg tablet 08:32: (two) Hospita 55 times a l day. aspirin 2020-0 Yes Take by [facility] (ASPIR-81 8-[address] ORAL) 08:32: Hospita 55 l multivitami 2020-0 Yes 1{tbl} QD Take 1 Me thodi n with 8-[address] minerals 08:32: mouth Hospita tablet 55 daily. l turm-ging-b 2020-0 Yes Take by Met [facility] os-yuc-mili- 8-[address] [facility]-hor 08:32: Hospita 100-100-100 55 l -125 mg tablet glimepiride 2015-02 Yes 4mg Take 4 mg U nivers (AMARYL) 4 0-26 by mouth 2 ity of mg tablet 00:00: (two) [place] 00 times Medical daily. Branch glimepiride 2015-02 Yes 4mg Take 4 mg U nivers (AMARYL) 4 0-26 by mouth 2 ity of mg tablet 00:00: (two) [place] 00 times Medical daily. Branch glimepiride 2015-02 Yes 4mg Take 4 mg U nivers (AMARYL) 4 0-26 by mouth 2 ity of mg tablet 00:00: (two) [place] 00 times Medical daily. Branch glimepiride 2015-02 Yes 4mg Take 4 mg U nivers (AMARYL) 4 0-26 by mouth 2 ity of mg tablet 00:00: (two) [place] 00 times Medical daily. Branch glimepiride 2015-02 Yes 4mg Take 4 mg U nivers (AMARYL) 4 0-26 by mouth 2 ity of mg tablet 00:00: (two) [place] 00 times Medical daily. Branch glimepiride 2015-02 Yes 4mg Take 4 mg U nivers (AMARYL) 4 0-26 by mouth 2 ity of mg tablet 00:00: (two) [place] 00 times Medical daily. Branch glimepiride 2015-02 Yes 4mg Take 4 mg U nivers (AMARYL) 4 0-26 by mouth 2 ity of mg tablet 00:00: (two) [place] 00 times Medical daily. Branch glimepiride 2015- Yes 4mg Take 4 mg U nivers (AMARYL) 4 0-26 by mouth 2 ity of mg tablet 00:00: (two) [place] 00 times Medical daily. Branch glimepiride 2015- Yes 4mg Take 4 mg U nivers (AMARYL) 4 0-26 by mouth 2 ity of mg tablet 00:00: (two) [place] 00 times Medical daily. Branch glimepiride 2015-02 Yes 4mg Take 4 mg U nivers (AMARYL) 4 0-26 by mouth 2 ity of mg tablet 00:00: (two) [place] 00 times Medical daily. Branch glimepiride 2015-02 Yes 4mg Take 4 mg U nivers (AMARYL) 4 0-26 by mouth 2 ity of mg tablet 00:00: (two) [place] 00 times Medical daily. Branch glimepiride 2015-02 Yes 4mg Take 4 mg U nivers (AMARYL) 4 0-26 by mouth 2 ity of mg tablet 00:00: (two) [place] 00 times Medical daily. Branch glimepiride 2015-02 Yes 4mg Take 4 mg U nivers (AMARYL) 4 0-26 by mouth 2 ity of mg tablet 00:00: (two) [place] 00 times Medical daily. Branch glimepiride 2015-02 Yes 4mg Take 4 mg U nivers (AMARYL) 4 0-26 by mouth 2 ity of mg tablet 00:00: (two) [place] 00 times Medical daily. Branch glimepiride 2015-02 Yes 4mg Take 4 mg U nivers (AMARYL) 4 0-26 by mouth 2 ity of mg tablet 00:00: (two) [place] 00 times Medical daily. Branch glimepiride 2015-02 Yes 4mg Take 4 mg U nivers (AMARYL) 4 0-26 by mouth 2 ity of mg tablet 00:00: (two) [place] 00 times Medical daily. Branch glimepiride 2015- Yes 4mg Take 4 mg U nivers (AMARYL) 4 0-26 by mouth 2 ity of mg tablet 00:00: (two) [place] 00 times Medical daily. Branch glimepiride 2015-02 Yes 4mg Take 4 mg U nivers (AMARYL) 4 0-26 by mouth 2 ity of mg tablet 00:00: (two) [place] 00 times Medical daily. Branch glimepiride 2015-02 Yes 4mg Take 4 mg U nivers (AMARYL) 4 0-26 by mouth 2 ity of mg tablet 00:00: (two) [place] 00 times Medical daily. Branch glimepiride 2015-02 Yes 4mg Take 4 mg U nivers (AMARYL) 4 0-26 by mouth 2 ity of mg tablet 00:00: (two) [place] 00 times Medical daily. Branch glimepiride 2015-02- No 4mg Take 4 mg Univers (AMARYL) 4 0-26 10-17 by mouth 2 it y of mg tablet 00:00: 00:00 (two) [place] 00 :00 times Medical daily. [place] Immunizations Ordered Filled Date Status Comments Source Immunization Name Immunization Name TD, NOS 2021-08-21 Completed [facility] 00:00:00 [facility] TD, NOS 2021-08-21 Completed [facility] of 00:00:00 [facility] TD, NOS 2021-08-21 Completed University of 00:00:00 [facility] Td 2021-08-21 Completed University of 00:00:00 [facility] Td 2021-08-21 Completed University of 00:00:00 [facility] Td 2021-08-21 Completed University of 00:00:00 [facility] Td 2021-08-21 Completed University of 00:00:00 [facility] TD, NOS 2021-08-21 Completed University of 00:00:00 [facility] TD, NOS 2021-08-21 Completed University of 00:00:00 [facility] TD, NOS 2021-08-21 Completed University of 00:00:00 [facility] TD, NOS 2021-08-21 Completed University of 00:00:00 [facility] TD, NOS 2021-08-21 Completed University of 00:00:00 [facility] SARS-COV-2 COVID-19 2021-06-02 Completed [facility] [employer] KARAN-SUCROSE 00:00:00 [place] [facility] VACCINE (MONTIEL TOP) Branch SARS-COV-2 COVID-19 2021-06-02 Completed Unive rsity of PFIZER KARAN-SUCROSE 00:00:00 [place] [facility] VACCINE (MONTIEL TOP) Branch SARS-COV-2 COVID-19 2021-06-02 Completed Unive rsity of PFIZER KARAN-SUCROSE 00:00:00 [place] [facility] VACCINE (MONTIEL TOP) Branch SARS-COV-2 COVID-19 2021-06-02 Completed Unive rsity of PFIZER KARAN-SUCROSE 00:00:00 [place] [facility] VACCINE (MONTIEL TOP) Branch SARS-COV-2 COVID-19 2021-06-02 Completed Unive rsity of PFIZER KARAN-SUCROSE 00:00:00 [place] [facility] VACCINE (MONTIEL TOP) Branch SARS-COV-2 COVID-19 2021-06-02 Completed Unive rsity of PFIZER KARAN-SUCROSE 00:00:00 [place] [facility] VACCINE (MONTIEL TOP) Branch SARS-COV-2 COVID-19 2021-06-02 Completed Unive rsity of PFIZER KARAN-SUCROSE 00:00:00 [place] [facility] VACCINE (MONTIEL TOP) Branch SARS-COV-2 COVID-19 2021-06-02 Completed Unive rsity of PFIZER KARAN-SUCROSE 00:00:00 [place] [facility] VACCINE (MONTIEL TOP) Branch SARS-COV-2 COVID-19 2021-06-02 Completed Unive rsity of PFIZER KARAN-SUCROSE 00:00:00 [place] [facility] VACCINE (MONTIEL TOP) Branch SARS-COV-2 COVID-19 2021-06-02 Completed Unive rsity of PFIZER KARAN-SUCROSE 00:00:00 [place] [facility] VACCINE (MONTIEL TOP) Branch SARS-COV-2 COVID-19 2021-06-02 Completed Unive rsity of PFIZER KARAN-SUCROSE 00:00:00 [place] [facility] VACCINE (MONTIEL TOP) Branch SARS-COV-2 COVID-19 2021-06-02 Completed Unive rsity of PFIZER KARAN-SUCROSE 00:00:00 [place] [facility] VACCINE (MONTIEL TOP) Branch SARS-COV-2 COVID-19 2021-06-02 Completed Unive rsity of PFIZER KARAN-SUCROSE 00:00:00 [place] [facility] VACCINE (MONTIEL TOP) Branch SARS-COV-2 COVID-19 2021-06-02 Completed Unive rsity of PFIZER KARAN-SUCROSE 00:00:00 [place] [facility] VACCINE (MONTIEL TOP) Branch SARS-COV-2 COVID-19 2021-06-02 Completed Unive rsity of PFIZER KARAN-SUCROSE 00:00:00 [place] [facility] VACCINE (MONTIEL TOP) Branch SARS-COV-2 COVID-19 2021-06-02 Completed Unive rsity of PFIZER KARAN-SUCROSE 00:00:00 [place] [facility] VACCINE (MONTIEL TOP) Branch Influenza Virus 2020-12-14 Completed Universit y of Vaccine 00:00:00 [facility] Influenza Virus 2020-12-14 Completed Universit y of Vaccine 00:00:00 [facility] Influenza Virus 2020-12-14 Completed Universit y of Vaccine 00:00:00 [facility] Influenza Virus 2020-12-14 Completed Universit y of Vaccine 00:00:00 [facility] Influenza Virus 2020-12-14 Completed Universit y of Vaccine 00:00:00 [facility] Influenza Virus 2020-12-14 Completed Universit y of Vaccine 00:00:00 [facility] Influenza Virus 2020-12-14 Completed Universit y of Vaccine 00:00:00 [facility] Influenza Virus 2020-12-14 Completed Universit y of Vaccine 00:00:00 [facility] Influenza Virus 2020-12-14 Completed [facility] Vaccine 00:00:00 [facility] Influenza Virus 2020-12-14 Completed [facility]it [facility] of Vaccine 00:00:00 [facility] Influenza Virus 2020-12-14 Completed [facility]it [facility] of Vaccine 00:00:00 [facility] Influenza Virus 2020-12-14 Completed [facility]it y of Vaccine 00:00:00 [facility] Influenza Virus 2020-12-14 Completed [facility]it y of Vaccine 00:00:00 [facility] Influenza Virus 2020-12-14 Completed [facility]it y of Vaccine 00:00:00 [facility] Influenza Virus 2020-12-14 Completed [facility]it y of Vaccine 00:00:00 [facility] Influenza Virus 2020-12-14 Completed [facility]it y of Vaccine 00:00:00 [facility] Influenza Virus 2020-12-14 Completed [facility]it y of Vaccine 00:00:00 [facility] Influenza Virus 2020-12-14 Completed [facility]it y of Vaccine 00:00:00 [facility] Influenza Virus 2020-12-14 Completed Universit y of Vaccine 00:00:00 [facility] SARS-COV-2 COVID-19 2020-10-28 Completed Unive rsity of PFIZER VACCINE 00:00:00 [facility] SARS-COV-2 COVID-19 2020-10-28 Completed Unive rsity of PFIZER VACCINE 00:00:00 [facility] SARS-COV-2 COVID-19 2020-10-28 Completed Unive rsity of PFIZER VACCINE 00:00:00 [facility] SARS-COV-2 COVID-19 2020-10-28 Completed Unive rsity of PFIZER VACCINE 00:00:00 [facility] SARS-COV-2 COVID-19 2020-10-28 Completed Unive rsity of PFIZER VACCINE 00:00:00 [facility] SARS-COV-2 COVID-19 2020-10-28 Completed Unive rsity of PFIZER VACCINE 00:00:00 [facility] SARS-COV-2 COVID-19 2020-10-28 Completed Unive rsity of PFIZER VACCINE 00:00:00 [facility] SARS-COV-2 COVID-19 2020-10-28 Completed Unive rsity of PFIZER VACCINE 00:00:00 [facility] SARS-COV-2 COVID-19 2020-10-28 Completed Unive rsity of PFIZER VACCINE 00:00:00 [facility] SARS-COV-2 COVID-19 2020-10-28 Completed Unive rsity of PFIZER VACCINE 00:00:00 [facility] SARS-COV-2 COVID-19 2020-10-28 Completed Unive rsity of PFIZER VACCINE 00:00:00 [facility] SARS-COV-2 COVID-19 2020-10-28 Completed Unive rsity of PFIZER VACCINE 00:00:00 [facility] SARS-COV-2 COVID-19 2020-10-28 Completed Unive rsity of PFIZER VACCINE 00:00:00 [facility] SARS-COV-2 COVID-19 2020-10-28 Completed Unive rsity of PFIZER VACCINE 00:00:00 [facility] SARS-COV-2 COVID-19 2020-10-28 Completed Unive rsity of PFIZER VACCINE 00:00:00 [facility] SARS-COV-2 COVID-19 2020-10-28 Completed Unive rsity of PFIZER VACCINE 00:00:00 [facility] SARS-COV-2 COVID-19 2020-10-28 Completed Unive rsity of PFIZER VACCINE 00:00:00 [facility] SARS-COV-2 COVID-19 2020-10-28 Completed Unive rsity of PFIZER VACCINE 00:00:00 [facility] SARS-COV-2 COVID-19 2020-10-28 Completed Unive rsity of PFIZER VACCINE 00:00:00 [facility] SARS-COV-2 COVID-19 2020-04-01 Completed Unive rsity of PFIZER VACCINE 00:00:00 [facility] SARS-COV-2 COVID-19 2020-04-01 Completed Unive rsity of PFIZER VACCINE 00:00:00 [facility] SARS-COV-2 COVID-19 2020-04-01 Completed Unive rsity of PFIZER VACCINE 00:00:00 [facility] SARS-COV-2 COVID-19 2020-04-01 Completed Unive rsity of PFIZER VACCINE 00:00:00 [facility] SARS-COV-2 COVID-19 2020-04-01 Completed Unive rsity of PFIZER VACCINE 00:00:00 [facility] SARS-COV-2 COVID-19 2020-04-01 Completed Unive rsity of PFIZER VACCINE 00:00:00 [facility] SARS-COV-2 COVID-19 2020-04-01 Completed Unive rsity of PFIZER VACCINE 00:00:00 [facility] SARS-COV-2 COVID-19 2020-04-01 Completed Unive rsity of PFIZER VACCINE 00:00:00 [facility] SARS-COV-2 COVID-19 2020-04-01 Completed Unive rsity of PFIZER VACCINE 00:00:00 [facility] SARS-COV-2 COVID-19 2020-04-01 Completed Unive rsity of PFIZER VACCINE 00:00:00 [facility] SARS-COV-2 COVID-19 2020-04-01 Completed Unive rsity of PFIZER VACCINE 00:00:00 [facility] SARS-COV-2 COVID-19 2020-04-01 Completed Unive rsity of PFIZER VACCINE 00:00:00 [facility] SARS-COV-2 COVID-19 2020-04-01 Completed Unive rsity of PFIZER VACCINE 00:00:00 [facility] SARS-COV-2 COVID-19 2020-04-01 Completed Unive rsity of PFIZER VACCINE 00:00:00 [facility] SARS-COV-2 COVID-19 2020-04-01 Completed Unive rsity of PFIZER VACCINE 00:00:00 [facility] SARS-COV-2 COVID-19 2020-04-01 Completed Unive rsity of PFIZER VACCINE 00:00:00 [facility] SARS-COV-2 COVID-19 2020-04-01 Completed Unive rsity of PFIZER VACCINE 00:00:00 [facility] SARS-COV-2 COVID-19 2020-04-01 Completed Unive rsity of PFIZER VACCINE 00:00:00 [facility] SARS-COV-2 COVID-19 2020-04-01 Completed Unive rsity of PFIZER VACCINE 00:00:00 [facility] SARS-COV-2 COVID-19 2020-03-08 Completed Unive rsity of PFIZER VACCINE 00:00:00 [facility] SARS-COV-2 COVID-19 2020-03-08 Completed Unive rsity of PFIZER VACCINE 00:00:00 [facility] SARS-COV-2 COVID-19 2020-03-08 Completed Unive rsity of PFIZER VACCINE 00:00:00 [facility] SARS-COV-2 COVID-19 2020-03-08 Completed Unive rsity of PFIZER VACCINE 00:00:00 [facility] SARS-COV-2 COVID-19 2020-03-08 Completed Unive rsity of PFIZER VACCINE 00:00:00 [facility] SARS-COV-2 COVID-19 2020-03-08 Completed Unive rsity of PFIZER VACCINE 00:00:00 [facility] SARS-COV-2 COVID-19 2020-03-08 Completed Unive rsity of PFIZER VACCINE 00:00:00 [facility] SARS-COV-2 COVID-19 2020-03-08 Completed Unive rsity of PFIZER VACCINE 00:00:00 [facility] SARS-COV-2 COVID-19 2020-03-08 Completed Unive rsity of PFIZER VACCINE 00:00:00 [facility] SARS-COV-2 COVID-19 2020-03-08 Completed Unive rsity of PFIZER VACCINE 00:00:00 [facility] SARS-COV-2 COVID-19 2020-03-08 Completed Unive rsity of PFIZER VACCINE 00:00:00 [facility] SARS-COV-2 COVID-19 2020-03-08 Completed Unive rsity of PFIZER VACCINE 00:00:00 [facility] SARS-COV-2 COVID-19 2020-03-08 Completed Unive rsity of PFIZER VACCINE 00:00:00 [facility] SARS-COV-2 COVID-19 2020-03-08 Completed Unive rsity of PFIZER VACCINE 00:00:00 [facility] SARS-COV-2 COVID-19 2020-03-08 Completed Unive rsity of PFIZER VACCINE 00:00:00 [facility] SARS-COV-2 COVID-19 2020-03-08 Completed Unive rsity of PFIZER VACCINE 00:00:00 [facility] SARS-COV-2 COVID-19 2020-03-08 Completed Unive rsity of PFIZER VACCINE 00:00:00 [facility] SARS-COV-2 COVID-19 2020-03-08 Completed Unive rsity of PFIZER VACCINE 00:00:00 [facility] SARS-COV-2 COVID-19 2020-03-08 Completed Unive rsity of PFIZER VACCINE 00:00:00 [facility] Pneumococcal 2015-02-05 Completed University o f Polysaccharide, 00:00:00 [place] [facility] PPSV23 (PNEUMOVAX) Branch Pneumococcal 2015-02-05 Completed University o f Polysaccharide, 00:00:00 [place] [facility] PPSV23 (PNEUMOVAX) Branch Pneumococcal 2015-02-05 Completed University o f Polysaccharide, 00:00:00 [place] [facility] PPSV23 (PNEUMOVAX) Branch Pneumococcal 2015-02-05 Completed University o f Polysaccharide, 00:00:00 [place] [facility] PPSV23 (PNEUMOVAX) Branch Pneumococcal 2015-02-05 Completed University o f Polysaccharide, 00:00:00 [place] [facility] PPSV23 (PNEUMOVAX) Branch Pneumococcal 2015-02-05 Completed University o f Polysaccharide, 00:00:00 [place] [facility] PPSV23 (PNEUMOVAX) Branch Pneumococcal 2015-02-05 Completed University o f Polysaccharide, 00:00:00 [place] [facility] PPSV23 (PNEUMOVAX) Branch Pneumococcal 2015-02-05 Completed University o f Polysaccharide, 00:00:00 [place] [facility] PPSV23 (PNEUMOVAX) Branch Pneumococcal 2015-02-05 Completed University o f Polysaccharide, 00:00:00 [place] [facility] PPSV23 (PNEUMOVAX) Branch Pneumococcal 2015-02-05 Completed University o f Polysaccharide, 00:00:00 [place] [facility] PPSV23 (PNEUMOVAX) Branch Pneumococcal 2015-02-05 Completed University o f Polysaccharide, 00:00:00 [place] [facility] PPSV23 (PNEUMOVAX) Branch Pneumococcal 2015-02-05 Completed University o f Polysaccharide, 00:00:00 [place] [facility] PPSV23 (PNEUMOVAX) Branch Pneumococcal 2015-02-05 Completed University o f Polysaccharide, 00:00:00 [place] [facility] PPSV23 (PNEUMOVAX) Branch Pneumococcal 2015-02-05 Completed University o f Polysaccharide, 00:00:00 [place] [facility] PPSV23 (PNEUMOVAX) Branch Pneumococcal 2015-02-05 Completed University o f Polysaccharide, 00:00:00 [place] [facility] PPSV23 (PNEUMOVAX) Branch Pneumococcal 2015-02-05 Completed University o f Polysaccharide, 00:00:00 [place] [facility] PPSV23 (PNEUMOVAX) Branch Pneumococcal 2015-02-05 Completed University o f Polysaccharide, 00:00:00 [place] [facility] PPSV23 (PNEUMOVAX) Branch Pneumococcal 2015-02-05 Completed University o f Polysaccharide, 00:00:00 [place] [facility] PPSV23 (PNEUMOVAX) Branch Pneumococcal 2015-02-05 Completed University o f Polysaccharide, 00:00:00 [place] [facility] PPSV23 (PNEUMOVAX) Branch Td 2015-02-03 Completed University of 00:00:00 [facility] Td 2015-02-03 Completed University of 00:00:00 [facility] Td 2015-02-03 Completed University of 00:00:00 [facility] Td 2015-02-03 Completed University of 00:00:00 [facility] Td 2015-02-03 Completed University of 00:00:00 [facility] TD, NOS 2015-02-03 Completed University of 00:00:00 [facility] TD, NOS 2015-02-03 Completed University of 00:00:00 [facility] TD, NOS 2015-02-03 Completed University of 00:00:00 [facility] TD, NOS 2015-02-03 Completed University of 00:00:00 [facility] TD, NOS 2015-02-03 Completed University of 00:00:00 [facility] TD, NOS 2015-02-03 Completed University of 00:00:00 [facility] TD, NOS 2015-02-03 Completed University of 00:00:00 [facility] TD, NOS 2015-02-03 Completed University of 00:00:00 [facility] Td 2015-02-03 Completed University of 00:00:00 [facility] Td 2015-02-03 Completed University of 00:00:00 [facility] Td 2015-02-03 Completed University of 00:00:00 [facility] Td 2015-02-03 Completed University of 00:00:00 [facility] Td 2015-02-03 Completed University of 00:00:00 [facility] Td 2015-02-03 Completed University of 00:00:00 [facility] TD, NOS Unknown Completed [facility] Pneumococcal Unknown Completed University o f Polysaccharide, [place] [facility] PPSV23 (PNEUMOVAX) Branch SARS-COV-2 COVID-19 Unknown Completed Unive rsity of PFIZER VACCINE [facility] SARS-COV-2 COVID-19 Unknown Completed Unive rsity of PFIZER VACCINE [facility] SARS-COV-2 COVID-19 Unknown Completed Unive rsity of PFIZER VACCINE [facility] Influenza Virus Unknown Completed Universit y of Vaccine [facility] SARS-COV-2 COVID-19 Unknown Completed Unive rsity of PFIZER KARAN-SUCROSE [place] [facility] VACCINE ([facility]) Branch TD, NOS Unknown Completed [facility] TD, NOS Unknown Completed [facility] Pneumococcal Unknown Completed University o f Polysaccharide, [place] [facility] PPSV23 (PNEUMOVAX) Branch SARS-COV-2 COVID-19 Unknown Completed Unive rsity of PFIZER VACCINE [facility] SARS-COV-2 COVID-19 Unknown Completed Unive rsity of PFIZER VACCINE [facility] SARS-COV-2 COVID-19 Unknown Completed Unive rsity of PFIZER VACCINE [facility] Influenza Virus Unknown Completed Universit y of Vaccine [facility] SARS-COV-2 COVID-19 Unknown Completed Unive rsity of PFIZER KARAN-SUCROSE [facility] VACCINE (MONTIEL TOP) Branch TD, NOS Unknown Completed [facility] Vital Signs Vital Name Observation Time Observation Value Comments Source Systolic blood 2022-11-28 17:11:00 126 mm[Hg] Univer sity of pressure [facility] Diastolic blood 2022-11-28 17:11:00 60 mm[Hg] Unive rsity of pressure [facility] Heart rate 2022-11-28 17:11:00 76 /min Universi ty of [facility] Body temperature 2022-11-28 17:11:00 36.17 Bella Univ ersity of [facility] Respiratory rate 2022-11-28 17:11:00 16 /min Univ ersity of [facility] Oxygen saturation in 2022-11-28 17:11:00 98 /min University of Arterial blood by [place] [facility] Body weight 2022-11-22 08:32:00 66.497 kg Universi ty [facility] BMI 2022-11-22 08:32:00 19.88 kg/m2 Universi ty [facility] Body height 2022-11-21 22:34:00 182.9 cm Universi ty [facility] Systolic blood 2022-08-28 20:00:00 144 mm[Hg] Univer sity of pressure [facility] Diastolic blood 2022-08-28 20:00:00 72 mm[Hg] Unive rsity of pressure [facility] Heart rate 2022-08-28 20:00:00 84 /min Universi ty of [facility] Respiratory rate 2022-08-28 20:00:00 16 /min Univ ersity of [facility] Oxygen saturation in 2022-08-28 20:00:00 99 /min University of Arterial blood by [place] [facility]xim[facility] Branch Systolic blood 2021-08-24 15:16:00 75 mm[Hg] Univer sity of pressure [facility] Diastolic blood 2021-08-24 15:16:00 44 mm[Hg] Unive rsity of pressure [facility] Heart rate 2021-08-24 15:16:00 74 /min Universi ty of [facility] Oxygen saturation in 2021-08-24 15:16:00 95 /min University of Arterial blood by [place] [facility] P[facility]xim[facility] Body temperature 2021-08-24 12:32:00 36.67 [place] [facility] Res[facility] 2021-08-24 12:32:00 18 /min [facility] Body weight 2021-08-24 09:43:00 75.479 kg [facility] BMI 2021-08-24 09:43:00 22.57 kg/m2 [facility] Body height 2021-08-21 20:31:00 182.9 cm [facility] Systolic blood 2021-04-02 22:00:00 148 mm[Hg] Univer sity of pressure [facility] Diastolic blood 2021-04-02 22:00:00 84 mm[Hg] Unive rsity of [facility] Heart rate 2021-04-02 22:00:00 89 /min [facility] Respiratory rate 2021-04-02 22:00:00 15 /min [facility] Oxygen saturation in 2021-04-02 22:00:00 96 /min [facility] Arterial blood by [facility] [place] Body temperature 2021-04-02 16:12:00 36.11 [place] [facility] Body height 2021-04-02 16:12:00 182.9 cm [facility] Body weight 2021-04-02 16:12:00 81.647 kg [facility] BMI 2021-04-02 16:12:00 24.41 kg/m2 [facility] Procedures Procedure Date / Time Performing Clinician Source Performed POCT GLUCOSE (AUTOMATED) 2022-11-28 17:13:00 Marion Giraldo [facility] POCT GLUCOSE (AUTOMATED) 2022-11-28 13:15:00 Marion Giraldo [facility] MAGNESIUM 2022-11-28 10:38:00 [facility] BASIC METABOLIC PANEL (NA, 2022-11-28 10:38:00 Beatriz Thomas [facility] K, CL, CO2, GLUCOSE, BUN, Jain [facility] CREATININE, [place]) CBC WITH DIFF 2022-11-28 10:38:00 [facility] POCT GLUCOSE (AUTOMATED) 2022-11-28 00:59:00 [place] Marion Rose [facility] POCT GLUCOSE (AUTOMATED) 2022-11-27 21:51:00 [place] Marion Rose [facility] POCT GLUCOSE (AUTOMATED) 2022-11-27 17:10:00 Marion Giraldo [facility] MR LUMBAR SPINE WO 2022-11-27 16:52:18 Mac[facility] CREATININE, URINE RANDOM 2022-11-27 13:33:00 Tena Veronica [facility] SODIUM, URINE RANDOM 2022-11-27 13:33:00 Glenys, Tena [facility] POCT GLUCOSE (AUTOMATED) 2022-11-27 12:48:00 [place] Marion Rose [facility] MAGNESIUM 2022-11-27 10:00:00 Roscoe Sam [facility] BASIC METABOLIC PANEL (NA, 2022-11-27 10:00:00 Sam Malhotra U [facility] K, CL, CO2, GLUCOSE, BUN, [place] [facility] CREATININE, CA) CBC WITH DIFF 2022-11-27 10:00:00 [facility] PO[facility] GLUCOSE (AUTOMATED) 2022-11-27 00:06:00 [place] [facility] POCT GLUCOSE (AUTOMATED) 2022-11-26 22:52:00 Enzo Marion Rose [facility] POCT GLUCOSE (AUTOMATED) 2022-11-26 17:16:00 Enzo Marion Rose [facility] POCT GLUCOSE (AUTOMATED) 2022-11-26 13:14:00 Enzo [facility] MAGNESIUM 2022-11-26 09:35:00 Liliane Jade [facility] BASIC METABOLIC PANEL (NA, 2022-11-26 09:35:00 [facility], CO2, GLUCOSE, BUN, Medica l Branch CREATININE, CA) CBC WITH DIFF 2022-11-26 09:35:00 [facility] POCT GLUCOSE (AUTOMATED) 2022-11-26 01:11:00 FallsMarionette [facility] POCT GLUCOSE (AUTOMATED) 2022-11-25 23:13:00 Marion Giraldoette [facility] POCT GLUCOSE (AUTOMATED) 2022-11-25 17:45:00 Marion Giraldoette [facility] POCT GLUCOSE (AUTOMATED) 2022-11-25 13:06:00 FallsMirelaa Rose [facility] MAGNESIUM 2022-11-25 09:09:00 [facility] CORTISOL AM 2022-11-25 09:09:00 [facility] BASIC METABOLIC PANEL (NA, 2022-11-25 09:09:00 Liliane Jade [facility] K, CL, CO2, GLUCOSE, BUN, Medica l Branch CREATININE, CA) CBC WITH DIFF 2022-11-25 09:09:00 [facility] POCT GLUCOSE (AUTOMATED) 2022-11-25 01:08:00 [facility] 2022-11-24 22:21:00 [facility] ROUTINE & RHYTHM 2022-11-24 18:40:27 [facility] POCT GLUCOSE (AUTOMATED) 2022-11-24 17:44:00 Enzo Marion [facility] POCT GLUCOSE (AUTOMATED) 2022-11-24 13:21:00 Enzo Marion [facility] BASIC METABOLIC PANEL (NA, 2022-11-24 09:27:00 Jason Grande [facility] K, CL, CO2, GLUCOSE, BUN, Tadashi Medica [facility] Branch CREATININE, CA) CBC WITH DIFF 2022-11-24 09:27:00 [facility] 2022-11-24 09:27:00 Christiane [facility] ACTIVATED PARTIAL THRMPLAS 2022-11-24 09:27:[address] [facility] HB ABO GROUPING 2022-11-24 09:27:00 Sabino Grande [facility] FREE T3 2022-11-24 09:27:00 [facility] POWER OF RADIOLOGICAL ENGINEER 2022-11-24 05:01:00 Doctor Unassigned, [facility] POCT GLUCOSE (AUTOMATED) 2022-11-24 00:09:00 FallsMarion [facility] POCT GLUCOSE (AUTOMATED) 2022-11-23 20:54:00 FallsMarion Rose [facility] POCT GLUCOSE (AUTOMATED) 2022-11-23 17:10:00 FallsMarion Rose [facility] POCT GLUCOSE (AUTOMATED) 2022-11-23 13:11:00 FallsMarion Rose [facility] GLYCOSYLATED HEMOGLOBIN 2022-11-23 11:26:00 Loyd Castillo [facility] (A1C) [facility] POCT GLUCOSE (AUTOMATED) 2022-11-23 01:24:00 [place], Marion Rose [facility] POCT GLUCOSE (AUTOMATED) 2022-11-22 22:55:00 EnzoMarion [facility] POCT GLUCOSE (AUTOMATED) 2022-11-22 20:50:00 Nilton Paiz [facility] XR HIPS 2 VW BILATERAL 2022-11-22 18:35:32 Rui Jackson [facility] POCT GLUCOSE (AUTOMATED) 2022-11-22 16:39:00 Nilton Paiz [facility] TROPONIN I 2022-11-22 16:25:00 Beata Vazquez [facility] BASIC METABOLIC PANEL (NA, 2022-11-22 16:25:00 Beata Vazquez [facility] K, CL, CO2, GLUCOSE, BUN, Medica l Branch CREATININE, CA) CBC WITH DIFF 2022-11-22 16:25:00 Taylor [facility] GLYCOSYLATED HEMOGLOBIN 2022-11-22 16:25:00 Beata Vazquez [facility] (A1C) Medical [place] TRANSTHORACIC ECHO (TTE) 2022-11-22 14:52:00 Loyd Castillo [facility] COMPLETE W/ CONTRAST Medical [facility] POCT GLUCOSE (AUTOMATED) 2022-11-22 14:07:00 Nilton Paiz [facility] CAROTID DUPLEX BILATERAL - 2022-11-22 14:00:00 Loyd Castillo [facility] BY VASCULAR LAB [facility] POCT GLUCOSE (AUTOMATED) 2022-11-22 13:02:00 Nilton Paiz [facility] POCT GLUCOSE (AUTOMATED) 2022-11-22 12:47:00 Nilton Paiz [facility] POCT GLUCOSE (AUTOMATED) 2022-11-22 02:37:00 Nilton Paiz [facility] POCT GLUCOSE (AUTOMATED) 2022-11-21 22:41:00 Nilton Paiz [facility] URINALYSIS 2022-11-21 18:33:00 Gage Nichols [facility] CT LUMBAR SPINE WO 2022-11-21 18:07:26 Gage Nichols [facility] CONTRAST [facility] CT THORACIC SPINE WO 2022-11-21 18:07:[address] [facility] CONTRAST [facility] CT CERVICAL SPINE WO 2022-11-21 18:07:[address] [facility] CONTRAST [facility] CT HEAD WO CONTRAST 2022-11-21 18:07:04 Gage Nichols [facility] ASSIGNMENT OF BENEFITS 2022-11-21 17:52:48 Doctor Unassigned, Un [facility] [place] MAGNESIUM 2022-11-21 17:19:00 Simone Gage [facility] TROPONIN I 2022-11-21 17:19:00 Gage Nichols [facility] FREE T4 2022-11-21 17:19:00 Simone Gage [facility] THYROID STIMULATING 2022-11-21 17:19:00 Gage Nichols [facility] HORMONE [facility] Branch COMP. METABOLIC PANEL 2022-11-21 17:19:00 Gage Nichols [facility] ([id number]) Medical Branch CBC WITH DIFF 2022-11-21 17:19:00 Gage Nichols [facility] PROTHROMBIN TIME / INR 2022-11-21 17:19:00 Gage Nichols [facility] ACTIVATED PARTIAL THRMPLAS 2022-11-21 17:19:00 Gage Nichols [facility] PILI [facility] N-TERMINAL PRO-BNP 2022-11-21 17:19:00 Gage Nichols [facility] EKG-12 LEAD 2022-11-21 16:52:57 Chencho [facility] o f [facility] CONSENT/REFUSAL FOR 2022-11-21 16:36:45 Doctor Gen, [facility] DIAGNOSIS AND TREATMENT [place] [facility] DNR 2022-11-21 05:01:00 Doctor Gen, [facility] Name [facility] [place] DIRECTIVE TO PHYSICIAN 2022-11-21 05:01:00 Doctor Unassigned, [facility] Name [facility] [place] HOSPITAL ADMISSION 2022-11-21 05:01:00 Doctor Unanona, [facility] Name [facility] [place] US RETROPERITONEAL 2022-04-17 17:49:13 Andre Brice [facility] COMPLETE Medical Branch ASSIGNMENT OF BENEFITS 2022-04-17 16:56:01 Doctor Unasscalista, [facility] Center Name Medical Branch PHYSICIAN ORDERS 2022-03-15 06:01:00 Doctor Gen, [facility] CBC WITH DIFF 2022-02-09 18:54:00 Andre Brice [facility] [place] URINALYSIS 2022-02-09 18:54:00 Andre Brice [facility] [place] PHYSICIAN ORDERS 2022-02-09 06:01:00 Doctor Gen [facility] CBC WITH DIFF 2021-11-29 14:03:00 Andre Brice [facility] [place] PHYSICIAN ORDERS 2021-11-29 05:01:00 Doctor Gen [facility] Name Medical Branch POCT GLUCOSE (AUTOMATED) 2021-08-24 12:32:00 Beata Vazquez [facility] BASIC METABOLIC PANEL (NA, 2021-08-24 09:15:00 Tierney Villa [facility] K, CL, CO2, GLUCOSE, BUN, Medica l Branch CREATININE, CA) POCT GLUCOSE (AUTOMATED) 2021-08-24 01:20:00 Beata Vazquez [facility] POCT GLUCOSE (AUTOMATED) 2021-08-23 22:12:00 OvBeata pablo [facility] POCT GLUCOSE (AUTOMATED) 2021-08-23 16:28:00 Beata Vazquez [facility] CAROTID DUPLEX BILATERAL - 2021-08-23 14:12:00 Beata Vazquez [facility] BY VASCULAR LAB [facility] POCT GLUCOSE (AUTOMATED) 2021-08-23 12:53:00 Beata Vazquez [facility] BASIC METABOLIC PANEL (NA, 2021-08-23 10:02:00 Yolande Thorne [facility] K, CL, CO2, GLUCOSE, BUN, Medica l Branch CREATININE, CA) POCT GLUCOSE (AUTOMATED) 2021-08-23 02:18:00 Beata Vazquez [facility] POCT GLUCOSE (AUTOMATED) 2021-08-22 21:52:00 OvBeata pablo [facility] POCT GLUCOSE (AUTOMATED) 2021-08-22 16:40:00 Beata Vazquez [facility] TRANSTHORACIC ECHO (TTE) 2021-08-22 16:15:00 Beata Vazquez [facility] POCT GLUCOSE (AUTOMATED) 2021-08-22 12:35:00 Beata Vazquez [facility] CREATINE KINASE 2021-08-22 09:00:00 [facility] 2021-08-22 09:00:00 Taylor [facility] HEPATIC FUNCTION PANEL 2021-08-22 09:00:00 Yolande Thorne [facility] (07352) (ALB,T.PRO,BILI Medical Branch T,BU/BC,ALT,AST,ALK PHOS) BASIC METABOLIC PANEL (NA, 2021-08-22 09:00:00 Yolande Thorne [facility] K, CL, CO2, GLUCOSE, BUN, Medica l Branch CREATININE, CA) LIPID PANEL (63800)(TOTAL 2021-08-22 09:00:00 Beata Vazquez [facility] CHOLESTEROL, [facility] TRIGLYCERIDES, HDL) CBC WITH DIFF 2021-08-22 09:00:00 [facility] / INR 2021-08-22 09:00[facility]AL PRO-BNP 2021-08-22 09:00:00 [facility] TROPONIN I 2021-08-22 01:49:00 [facility] POCT GLUCOSE (AUTOMATED) 2021-08-22 01:44:00 Beata Vazquez [facility] POCT GLUCOSE (AUTOMATED) 2021-08-21 21:39:00 Beata Vazquez [facility] PHOSPHORUS 2021-08-21 20:26:00 [facility] TROPONIN I 2021-08-21 20:26:00 [facility] POCT GLUCOSE (AUTOMATED) 2021-08-21 20:08:00 Beata Vazquez [facility] CT THORAX WO CONTRAST 2021-08-21 12:08:01 Gage Nichols [facility] COVID-19 (ID NOW RAPID 2021-08-21 11:14:00 Gage Nichols [facility] TESTING) Medical Branch LAB ONLY COVID 2021-08-21 11:14:00 Gage Nichols [facility] CT HEAD WO CONTRAST 2021-08-21 11:11:14 Gage Nichols [facility] XR CHEST 1 VW 2021-08-21 10:58:47 Gage Nichols [facility] TROPONIN I 2021-08-21 10:55:00 Gage Nichols [facility] THYROID STIMULATING 2021-08-21 10:55:00 Beata Vazquez [facility] HORMONE Medical Branch COMP. METABOLIC PANEL 2021-08-21 10:55:00 Gage Nichols [facility] ([id number]) Medical Branch CBC WITH DIFF 2021-08-21 10:55:00 Gage Nichols [facility] PROTHROMBIN TIME / INR 2021-08-21 10:55:00 Gage Nichols [facility] ACTIVATED PARTIAL THRMPLAS 2021-08-21 10:55:00 Gage Nichols [facility] PILI [facility] N-TERMINAL PRO-BNP 2021-08-21 10:55:00 Gage Nichols [facility] HB ECG ROUTINE & RHYTHM 2021-08-21 10:46:09 Gage Nichols [facility] STRIP [facility] Branch NOTICE OF PRIVACY 2021-08-21 10:31:18 Doctor Unassigned, [facility] PRACTICES [facility] CONSENT/REFUSAL FOR 2021-08-21 10:27:51 Doctor Unassigned, [facility] DIAGNOSIS AND TREATMENT [facility] ASSIGNMENT OF BENEFITS 2021-07-21 15:04:50 Doctor Unassigned, [facility] SARS-COV-2 COVID-19 2021-06-02 15:30:30 Doctor Unanona, [facility] VACCINE 12 YRS+,0.3ML,IM [facility] (PFIZER - MONTIEL TOP) LOWER EXTREMITY 2021-04-02 19:01:00 Gage Nichols [facility] PSEUDOANEURYSM DUPLEX Medical Br anch RIGHT - BY VASCULAR LAB CT ABDOMEN PELVIS WO 2021-04-02 17:09:[address] [facility] CONTRAST Medical Branch HB ABO GROUPING 2021-04-02 16:42:00 Gage Nichols [facility] COVID-19 (ID NOW RAPID 2021-04-02 16:41:00 Gage Nichols [facility] TESTING) Medical Branch COMP. METABOLIC PANEL 2021-04-02 16:40:00 Gage Nichols [facility] ([id number]) Medical Branch CBC WITH DIFF 2021-04-02 16:40:00 Gage Nichols o f [facility] PROTHROMBIN TIME / INR 2021-04-02 16:40:00 Gage Nichols [facility] ACTIVATED PARTIAL THRMPLAS 2021-04-02 16:40:00 Gage Nichols [facility] NOTICE OF PRIVACY 2021-04-02 16:05:05 Doctor Unassigned, [facility] PRACTICES [facility] CONSENT/REFUSAL FOR 2021-04-02 16:04:50 Doctor Unasscalista, [facility] DIAGNOSIS AND TREATMENT [facility] [place] [id number] 2021-03-30 00:00[facility] [id number] 2021-03-30 00:00:00 [facility] Plan of Care Planned Activity Planned Date Details Comments Source Future Scheduled 2022-11-28 COVID-19 VACCINE (#1) [facility] Test 15:36:54 [code = COVID-19 VACCINE (#1)] Future Scheduled 2022-11-28 SHINGLES VACCINES (1 Met [facility] Test 15:36:54 of 2) [code = SHINGLES VACCINES (1 of 2)] Future Scheduled 2022-11-28 RSV VACCINES > 60 YR Met [facility] Test 15:36:54 (1 - 1-dose 60+ series) [code = RSV VACCINES > 60 YR (1 - 1-dose 60+ series)] Future Scheduled 2022-11-28 65+ [facility] 15:36:54 VACCINE (2 - PCV) [code = 65+ PNEUMOCOCCAL VACCINE (2 - PCV)] Future Scheduled 2022-11-28 INFLUENZA VACCINE (#1) [facility] Test 15:36:54 [code = INFLUENZA VACCINE (#1)] Encounters Start End Encounter Admission Attending Care Care Encounter Source Date/Time Date/Time Type Type Clinicians Facility Department ID 2021-01-28 Inpatient Mari, HCAWU H[facility] [id number] [facility] 08:00:[address] [place] [address] 2020-12-13 Outpatient R JIM [facility] VIVEK [id number] Univers 14:34:33 RYAN Manriquez [facility] 2022-11-212022-11-28 Inpatient X ERIC [facility] [id number] Univers 11:45:00 13:30:00 STANISLAW ity [facility] 2022-11-21 2022-11-28 [facility] Gage Nichols 1.2.840.1 14 [id number] Univers 11:45:00 13:30:00 Encounter Nilton Paiz 350.1.13.10 ity of [facility] 4.2.7.2.686 [facility] [phone] [facility] Stanislaw Reyes 098 [place] 2022-08-30 2022-08-30 Filling Hauler Weaving Yaa, Espinoza Lab Main [facility] 1.2.8 40.114 [id number] Univers 11:15:00 11:30:00 Visit Gilmer Harrison 350.1.13.10 ity [facility] 4.2.7.2.686 Sherry WEBB [phone] La dical NAL 353 [facility] 2022-08-30 2022-08-30 [facility] [id number] Univers 11:15:00 11:15:00 GILMER [facility] 2022-08-28 2022-08-28 Outpatient R BABS [facility] [id number] Univers 12:28:25 23:59:00 ANDRE reecey [facility] 2022-08-28 2022-08-28 [facility] MARTHA Brice 1.2.840.114 [id number] Univers 12:28:25 23:59:00 Encounter Andre HOLLIS [id number] ity of [facility] 4.2.7.2.686 [place] [phone] [facility] 804 [place] 2022-04-17 2022-04-17 Outpatient R BABS [facility] [id number] Univers 10:57:26 23:59:00 ANDRE reecey [facility] 2022-04-17 2022-04-17 [facility] 1.2.005.704 [id number] Univers 10:57:26 23:59:00 Encounter Andre RAMÍREZ 350.1.13.10 ity of [facility] 4.2.7.2.[place] [phone] [facility] 806 [place] 2022-04-17 2022-04-17 Orders Doctor FERNANDO 1.2.840.114 [id number] Univers 00:00:00 00:00:00 Only Unassigned, ANA 350.1.13.10 ity of [facility] 4.2.7.2.686 Ricrado as [phone] [facility] 009 [place] 2022-04-12 2022-04-12 Filling Hauler Weaving Yaa, Adc Lab Main [facility] 1.2.8 40.114 [id number] Univers 11:30:00 11:45:00 Visit Babs Andre RAMÍREZ 350.1.13.10 ity of [facility] 4.2.7.2.[place] [phone] La dicca NAL [address] [place] [address] 2022-04-12 2022-04-12 [facility] [id number] Univers 11:30:00 11:30:00 ANDRE itbambi [facility] 2022-03-15 2022-03-15 Orders Doctor FERNANDO 1.2.840.114 [id number] Univers 00:00:00 00:00:00 Only Unassigned, ANA 350.1.13.10 ity of [facility] 4.2.7.2.686 Ricardo as [phone] [address] 2022-02-09 2022-02-09 Filling Hauler Weaving Yaa, Adc Lab Main [facility] 1.2.8 40.114 [id number] Univers 12:30:00 12:45:00 Visit Gilmer Harrison 350.1.13.10 ity of [place].7.2.[place] [phone] La dical NAL 353 [facility] 2022-02-09 2022-02-09 [facility] [id number] Univers 12:30:00 12:30:00 GILMER griffin [facility] 2022-02-09 2022-02-09 Orders Doctor FERNANDO 1.2.840.114 [id number] Univers 00:00:00 00:00:00 Only Unassigned, ANA 350.1.13.10 ity of [facility] 4.2.7.2.686 Ricardo as [phone] [facility] 009 Branch 2021-11-29 2021-11-29 Filling Hauler Weaving Yaa, Espinoza Lab Main [facility] 1.2.8 40.114 [id number] Univers 08:45:00 09:00:00 Visit Gilmer Harrison 350.1.13.10 ity of [place].2.[place] [phone] [address] 2021-11-29 2021-11-29 Outpatient R LEENA [facility] [id number] Univers 08:45:00 08:45:00 GILMER griffin [facility] 2021-11-29 2021-11-29 Orders Doctor KASSIE 1.2.840.114 [id number] Univers 00:00:00 00:00:00 Only Unassigned, ANA 350.1.13.10 ity of [facility] 4.2.7.2.686 Ricardo as [phone] [facility] 009 Branch 2021-09-27 2021-09-27 Outpatient ARIAS Guerra, ENRIQUEWU SURG [id number] [facility] 11:08:00 11:08:00 Bryan 49 [facility] 2021-09-19 2021-09-19 Outpatient ENRIQUE GuerraWU HCAWU [id number] [facility] 12:02:00 12:02:00 Bryan 12 [facility] 2021-08-25 2021-08-25 Transition KIMBERLEY Mixon 1.2.840.114 [id number] Univers 00:00:00 00:00:00 of Care Kareem KRISHNAN 350.1.13.10 ity of [place]7.2.[place] [id number] [facility] 403 Branch 2021-08-21 2021-08-24 [facility] Gage Nichols [facility] 1.2.840.1 14 [id number] Univers 05:34:00 12:20:00 Encounter Beata Vazquez 350.1.13.10 ity [place] [id number] [facility] 081 [place] 2021-08-21 2021-08-24 Inpatient X TAYLOR [facility] DORY [id number] Univers 05:34:00 12:20:00 BEATA itbambi [facility] 2021-08-21 2021-08-21 Orders Doctor KASSIE 1.2.840.114 [id number] Univers 00:00:00 00:00:00 Only Unassigned, ANA 350.1.13.10 ity of [facility] 4.2.7.2.686 Ricardo as [phone] [address] 2021-07-21 2021-07-21 Filling Hauler Weaving Yaa, [facility] Lab Main [facility] 1.2.8 40.114 [id number] Univers 11:00:00 11:15:00 Visit Andre Brice 350.1.13.10 ity of [place].2.[place] [phone] La dical NAL 353 Branch [facility] 2021-07-21 2021-07-21 Outpatient R BABS [facility] [id number] Univers 11:00:00 11:00:00 ANDRE ity [facility] 2021-07-21 2021-07-21 Orders Doctor FERNANDO 1.2.840.114 [id number] Univers 00:00:00 00:00:00 Only Unassigned, ANA 350.1.13.10 ity of [place] [facility] 4.2.7.2.686 Ricardo as [phone] [address] 2021-06-02 2021-06-02 Imm/Inj Vaccine, [facility] Family Medicine [facility] 1.2.840.114 [id number] Univers 10:30:00 10:40:00 Visit Zaid López 350.1.13 .10 ity of [place]2.7.2.[place] [phone] La dical NAL 044 Branch [facility] 2021-06-02 2021-06-02 Outpatient R BERNY [facility] [id number] Univers 10:30:00 10:30:00 ZAID reecey of [facility] 2021-05-17 2021-05-17 Outpatient ENRIQUE ValdezWU SURG [id number] [facility] 09:19:00 09:19:00 Bryan 30 [facility] 2021-04-02 2021-04-03 Inpatient ENRIQUE DangeloWU INTE.02 [id number] [facility] 18:45:00 18:35:00 Prince 91 [facility] 2021-04-02 2021-04-02 Emergency X [facility] ERT [id number] Univers 10:13:00 17:49:00 GAGE griffin [facility] 2021-04-02 2021-04-02 Emergency [facility]NEW [facility] 1.2.176.581 [id number] Univers 10:13:00 17:49:00 Gage RAMÍREZ 350.1.13.10 i ty of [place] 4.2.7.2.686 [facility] [phone] [facility] 084 Branch 2021-04-02 2021-04-02 Orders Doctor KASSIE 1.2.840.114 [id number] Univers 00:00:00 00:00:00 Only Unassigned, ANA 350.1.13.10 ity of [place] [facility] 4.2.7.2.686 [facility] [id number] [facility] 009 Branch 2021-03-31 2021-03-31 Inpatient ENRIQUE ValdezWU TELE [id number] [facility] 07:19:00 10:50:00 Bryan 27 [facility] 2021-02-10 2021-02-10 Inpatient ENRIQUE ValdezWU OUTD [id number] [facility] 00:00:00 23:59:00 Bryan 61 [facility] 2021-01-31 2021-01-31 Office Kale [facility] 1.2.840.114 [id number] Univers 09:30:00 09:41:42 Visit Gilmer ORTIZ 350.1.13.10 ity of [place] 4.2.7.2.686 [facility] [phone] [facility] AND BOVINA 028 Branch [facility] 2021-01-31 2021-01-31 Outpatient Geoff HENLEY [facility] [id number] Univers 09:30:00 09:41:42 GILMER bambi [facility] 2021-01-31 2021-01-31 Outpatient Geoff HENLEY [facility] [id number] Univers 09:30:00 09:30:00 GILMER bambi [facility] 2021-01-26 2021-01-26 Inpatient ENRIQUE ValdezU [facility] [id number] [facility] 12:00:00 12:00:00 Bryan Moises [facility] 2021-01-14 2021-01-14 Transition ApurvaKIMBERLEY ford 1.2.840.114 [id number] Univers 00:00:00 00:00:00 of Care Kareem KRISHNAN 350.1.13.10 ity of [place] 4.2.7.2.686 [place] [phone] [facility] 403 Branch 2021-01-10 2021-01-13 [facility] [id number] Univers 15:19:00 18:19:00 [facility] 2021-01-10 2021-01-13 [facility] Dinah Cota 1.2.8 40.114 [id number] Univers 15:19:00 18:19:00 Encounter Cori Beauchamp 350.1.13.10 ity [facility] 4.2.7.2.686 [place] Missy Lemos [phone] [facility] 100 Branch 2021-01-10 2021-01-13 [facility] [id number] Univers 15:19:00 18:19:00 [facility] 2021-01-12 2021-01-12 Surgery MichellenegiovannaNEW [facility] 1.2.112.221 [id number] Univers 11:30:00 12:27:00 Nikhil ARRIAZA 350.1.13.10 ity of [place] 4.2.7.2.686 Ricardo as BLDG [phone] [facility] 020 Branch 2020-10-28 2020-10-28 [facility] [id number] Univers 13:20:00 13:20:00 ZAID reecebambi [facility] 2020-10-28 2020-10-28 Imm/Inj Nurse, Adc Pob Immunization [facility] 1.2.840.114 [id number] Univers 13:07:04 13:07:44 Visit Zaid López 350.1.13 .10 ity of [place] [phone] La dical [facility] 421 [facility] 2020-10-26 2020-10-26 Outpatient R BERNY [facility] [id number] Univers 14:30:00 14:30:00 ZAID griffin [facility] 2020-09-27 2020-09-27 Transition Kimberley Hill 1.2.840.114 [id number] Univers 00:00:00 00:00:00 of Care Adry Krishnan 350.1.13.10 it y of [place]2.[place].2.[place] [id number] [facility] 403 Branch 2020-09-24 2020-09-25 Hospital Ryan Sher [facility] 1.2 .840.114 [id number] Univers 07:34:00 16:33:00 Encounter Ari Hernandez 350.1.13.10 ity of [place].2.[place] [id number] [facility] 081 Branch 2020-09-24 2020-09-24 Surgery [facility] 1.2.840.114 [id number] Univers 14:00:00 14:35:00 Ryan manriquez 350.1.13.10 it[place] of [place] Surgical [phone] [facility] 020 Branch 2020-09-24 2020-09-24 Anesthesia Jose Case [facility] 1.2.840.11 [id number] Univers 12:50:00 13:04:00 Event Jonh Cárdenas 350.1.13. 10 it[place].2.[place] [id number] [facility] 020 Branch 2020-09-23 2020-09-23 Laboratory Only, Adc Test [facility] 1.2.840. 114 [id number] Univers 13:53:17 14:08:17 Only Ryan Sher 350.1.1 3.10 ity joyce Billy 4.2.7.2.686 [facility] [phone] [facility] 353 Branch 2020-09-23 2020-09-23 Outpatient R JIM [facility] [id number] Univers 08:45:00 08:45:00 RYAN Manriquez f [facility] 2020-07-31 2020-07-31 Outpatient ARIAS HollidayanetteENRIQUE leeWU SURG [id number] [facility] 05:02:00 05:02:[address] 2020-04-01 2020-04-01 Outpatient Geoff GALLEGO [facility] [id number] Univers 11:30:00 11:30:00 AMBERLY [facility] 2020-03-30 2020-03-30 Outpatient Geoff GALLEGO [facility] [id number] Univers 10:40:00 10:40:00 AMBERLY [facility] 2020-03-08 2020-03-08 Outpatient Geoff GALLEGO [facility] [id number] Univers 09:20:00 09:20:00 AMBERLY [facility] 2020-01-29 2020-01-29 Office [facility] 1.2.840.114 [id number] 08:58:03 09:44:21 Visit Gilmer ORTIZ 350.1.13.10 NICOLE 4.2.7.2.686 [place] [id number] AND ZACHARY 028 [facility] 2020-01-29 2020-01-29 Office [facility] 1.2.840.114 [id number] Univers 08:58:03 09:44:21 Visit Gilmer ORTIZ 350.1.13.10 ity NICOLE 4.2.7.2.686 [facility] [phone] [facility] AND [address] [facility] 2020-01-29 2020-01-29 [facility] [id number] Univers 09:40:00 09:40:00 GILMER griffin [facility] 2020-01-29 2020-01-29 Orders Doctor KASSIE 1.2.840.114 [id number] [facility] 00:00:00 00:00:00 Only Unassigned, ANA 350.1.13.10 ity of [place] [facility] 4.2.7.2.686 Ricardo as [phone] [address] 2019-09-26 2019-09-26 Outpatient ROSALVA, [facility] [id number] [place] 00:00:00 00:00:00 FITZ 753 Method i 2019-09-22 2019-09-22 Outpatient ROSALVA [facility] [id number] [place] 00:00:00 00:00:00 FITZ 348 Method i 2019-09-22 2019-09-22 Outpatient ROSALVA [facility] [id number] [place] 00:00:00 00:00:00 FITZ 229 Method i 2019-09-22 2019-09-22 [facility] [id number] [place] 00:00:00 00:00:00 SALIM 456 Method i 2019-09-22 2019-09-22 [facility] [id number] [place] 00:00:00 00:00:00 SALIM 489 Method i 2019-01-30 2019-01-30 [facility] [id number] [facility] 09:10:00 09:23:46 GILMER [facility] Results Test Description Test Time Test Comments Results Result Comments Source POCT GLUCOSE (AUTOMATED) 2022-11-28 17:14:19 Test Item Value Reference Range Interpretation Comme nts POCT GLU (test code = 2402617014) 157 mg/dL 70-110 H Lab Interpretation (test code = 03226-5) Abnormal [facility] GLUCOSE (AUTOMATED)2022-11-28 13:16:46 Test Item Value Reference Range Interpretation Comments POCT GLU (test code = 2956766461) 139 mg/dL 70-110 H Lab Interpretation (test code = Abnormal 79762-6) [facility] GLUCOSE (AUTOMATED)2022-11-28 01:07:40 Test Item Value Reference Range Interpretation Comments POCT GLU (test code = 5114328691) 192 mg/dL 70-110 H Lab Interpretation (test code = Abnormal 27809-9) [facility] GLUCOSE (AUTOMATED)2022-11-27 21:52:31 Test Item Value Reference Range Interpretation Comments POCT GLU (test code = 6581239982) 185 mg/dL 70-110 H Lab Interpretation (test code = Abnormal 82435-5) [facility] GLUCOSE (AUTOMATED)2022-11-27 17:11:48 Test Item Value Reference Range Interpretation Comments POCT GLU (test code = 3347887095) 148 mg/dL 70-110 H Lab Interpretation (test code = Abnormal 10482-3) [facility] GLUCOSE (AUTOMATED)2022-11-27 12:49:34 Test Item Value Reference Range Interpretation Comments POCT GLU (test code = 9853002582) 143 mg/dL 70-110 H Lab Interpretation (test code = Abnormal 97845-3) [facility] GLUCOSE (AUTOMATED)2022-11-27 00:15:23 Test Item Value Reference Range Interpretation Comments POCT GLU (test code = 4270577627) 159 mg/dL 70-110 H Lab Interpretation (test code = Abnormal 21391-9) [facility] GLUCOSE (AUTOMATED)2022-11-26 22:54:12 Test Item Value Reference Range Interpretation Comments POCT GLU (test code = 5651968114) 139 mg/dL 70-110 H Lab Interpretation (test code = Abnormal 44422-2) [facility] GLUCOSE (AUTOMATED)2022-11-26 17:19:34 Test Item Value Reference Range Interpretation Comments POCT GLU (test code = 9692974123) 150 mg/dL 70-110 H Lab Interpretation (test code = Abnormal 51720-6) [facility] GLUCOSE (AUTOMATED)2022-11-26 13:16:53 Test Item Value Reference Range Interpretation Comments POCT GLU (test code = 8620066942) 132 mg/dL 70-110 H Lab Interpretation (test code = Abnormal 21938-4) [facility] Test Item Value Reference Range Interpretation Comments MAGNESIUM (test code = 2639115784) 1.7 mg/dL 1.7-2.4 Lab Interpretation (test code = Normal 08880-4) [facility] METABOLIC PANEL (NA, K, CL, CO2, GLUCOSE, BUN, CREATININE, CA)2022-11-26 10:15:17 Test Item Value Reference Range Interpretation Comments NA (test code = 138 mmol/L 135-145 [id number]) K (test code = 3.8 mmol/L 3.5-5.0 [id number]) CL (test code = 111 mmol/L 98-108 H 0313159681) CO2 TOTAL (test code = 21 mmol/L 23-31 L 5403756802) AGAP (test code = 6 2-16 2532643930) BUN (test code = 39 mg/dL 7-23 H 9579112014) GLUCOSE (test code = 130 mg/dL 70-110 H 0962804646) CREATININE (test code = 1.37 mg/dL 0.60-1.25 H 1245632908) CALCIUM (test code = 7.4 mg/dL 8.6-10.6 L 6498665952) eGFR (test code = 49.0 mL/min/1.73m2 2623113336) ANURAG (test code = ANURAG) Association of Glomerular Filtration Rate (GFR) and Staging of Kidney Disease* + --+ --+ ------+| GFR (mL/min/1.73 m2) ?| With Kidney Damage ?| ?Without Kidney Damage+ --------+ --------+ +| ?>90 ?| ?Stage one ?| ? Normal ?+ ---+ ---+ -------+| ?60-89 ?| ?Stage two ?| ? Decreased GFR ? + --+ --+ ------+| ?30-59 ?| ?Stage three ?| ? Stage three ? + --+ --+ ------+| ?15-29 ?| ?Stage four ? | ? Stage four ?+ ---+ ---+ -------+| ?<15 (or dialysis) ? ?| ?Stage five ? | ? Stage five ?+ ---+ ---+ -------+ *Each stage assumes the associated GFR level has been in effect for at least three months. ?Stages 1 to 5, with or without kidney disease, indicate chronic kidney disease. Notes: Determination of stages one and two (with eGFR >59mL/min/1.73 m2) requires estimation of kidney damage for at least three months as defined by structural or functional abnormalities of the kidney, manifested by either:Pathological abnormalities or Markers of kidney damage (including abnormalities in the composition of the blood or urine or abnormalities in imaging tests). Lab Interpretation Abnormal (test code = 44651-2) [facility] WITH [id number] 09:47:57 Test Item Value Reference Range Interpretation Comments WBC (test code = 6.11 See_Comment [Automated 6690-2) message] The sy stem which generated this result transmitted reference range : 4.20 - 10.70 10*3/?L. The reference range was not used to interpret this result as normal/abnormal . RBC (test code = 3.15 See_Comment L [Automated 789-8) message] The sy stem which generated this result transmitted reference range : 4.26 - 5.52 10*6/?L. The reference range was not used to interpret this result as normal/abnormal . HGB (test code = 10.3 g/dL 12.2-16.4 L 718-7) HCT (test code = 30.9 % 38.4-49.3 L 4544-3) MCV (test code = 98.1 fL 81.7-95.6 H 787-2) MCH (test code = 32.7 pg 26.1-32.7 785-6) MCHC (test code = 33.3 g/dL 31.2-35.0 786-4) RDW-SD (test code = 51.6 fL 38.5-51.6 00326-2) RDW-CV (test code = 14.3 % 12.1-15.4 788-0) PLT (test code = 172 See_Comment [Automated 777-3) message] The sy stem which generated this result transmitted reference range : 150 - 328 10*3/ ?L. The reference r lori was not used to interpret this result as normal/abnormal . MPV (test code = 9.3 fL 9.8-13.0 L 03580-5) NRBC/100 WBC (test 0.0 See_Comment [Automat ed code = 1996794494) message] The system which generated this result transmitted reference range : 0.0 - 10.0 /100 WBCs. The refer ence range was not u sed to interpret th is result as normal/abnormal . NRBC x10^3 (test code See_Comment [Auto mated = 5064492080) message] The s ystem which generated this result transmitted reference range : 10*3/?L. The reference range was not used to interpret this result as normal/abnormal . GRAN MAT (NEUT) % 59.5 % (test code = 770-8) IMM GRAN % (test code 0.30 % = 9831453402) LYMPH % (test code = 26.5 % 736-9) MONO % (test code = 10.3 % 5905-5) EOS % (test code = 3.1 % 713-8) BASO % (test code = 0.3 % 706-2) GRAN MAT x10^3(ANC) 3.63 10*3/uL 1.99-6.95 (test code = 3955770966) IMM GRAN x10^3 (test 0.00-0.06 code = 6947249021) LYMPH x10^3 (test code 1.62 10*3/uL 1.09-3.23 = 731-0) MONO x10^3 (test code 0.63 10*3/uL 0.36-1.02 = 742-7) EOS x10^3 (test code = 0.19 10*3/uL 0.06-0.53 711-2) BASO x10^3 (test code 0.01-0.09 = 704-7) Lab Interpretation Abnormal (test code = 28006-1) [facility] GLUCOSE (AUTOMATED)2022-11-26 01:12:26 Test Item Value Reference Range Interpretation Comments POCT GLU (test code = 6227604257) 158 mg/dL 70-110 H Lab Interpretation (test code = Abnormal 15407-6) [facility] GLUCOSE (AUTOMATED)2022-11-25 23:15:13 Test Item Value Reference Range Interpretation Comments POCT GLU (test code = 3615714012) 195 mg/dL 70-110 H Lab Interpretation (test code = Abnormal 94517-2) [id number] Test Item Value Reference Range Interpretation Comments ANDREW AM (test code = 8.6 ug/dL 4.5-23.0 4074826788) ANURAG (test code = ANURAG) Biotin has been reported to cause a positive bias, interpret results relative to patient's use of biotin. Lab Interpretation (test Normal code = 75976-2) [facility] GLUCOSE (AUTOMATED)2022-11-25 17:46:20 Test Item Value Reference Range Interpretation Comments POCT GLU (test code = 3631351466) 200 mg/dL 70-110 H Lab Interpretation (test code = Abnormal 72842-5) [facility] GLUCOSE (AUTOMATED)2022-11-25 13:07:53 Test Item Value Reference Range Interpretation Comments POCT GLU (test code = 6611017597) 130 mg/dL 70-110 H Lab Interpretation (test code = Abnormal 29706-5) [facility] METABOLIC PANEL (NA, K, CL, CO2, GLUCOSE, BUN, CREATININE, CA)2022-11-25 09:48:00 Test Item Value Reference Range Interpretation Comments NA (test code = 137 mmol/L 135-145 4513047601) K (test code = 4.4 mmol/L 3.5-5.0 6304089840) CL (test code = 108 mmol/L 98-108 2308148120) CO2 TOTAL (test code = 23 mmol/L 23-31 3327801541) AGAP (test code = 6 2-16 5819628553) BUN (test code = 41 mg/dL 7-23 H 8998060439) GLUCOSE (test code = 148 mg/dL 70-110 H 8456888121) CREATININE (test code = 1.58 mg/dL 0.60-1.25 H 3039159909) CALCIUM (test code = 7.5 mg/dL 8.6-10.6 L 8413618428) eGFR (test code = 41.6 mL/min/1.73m2 4341683129) ANURAG (test code = ANURAG) Association of Glomerular Filtration Rate (GFR) and Staging of Kidney Disease* + --+ --+ ------+| GFR (mL/min/1.73 m2) ?| With Kidney Damage ?| ?Without Kidney Damage+ --------+ --------+ +| ?>90 ?| ?Stage one ?| ? Normal ?+ ---+ ---+ -------+| ?60-89 ?| ?Stage two ?| ? Decreased GFR ? + --+ --+ ------+| ?30-59 ?| ?Stage three ?| ? Stage three ? + --+ --+ ------+| ?15-29 ?| ?Stage four ? | ? Stage four ?+ ---+ ---+ -------+| ?<15 (or dialysis) ? ?| ?Stage five ? | ? Stage five ?+ ---+ ---+ -------+ *Each stage assumes the associated GFR level has been in effect for at least three months. ?Stages 1 to 5, with or without kidney disease, indicate chronic kidney disease. Notes: Determination of stages one and two (with eGFR >59mL/min/1.73 m2) requires estimation of kidney damage for at least three months as defined by structural or functional abnormalities of the kidney, manifested by either:Pathological abnormalities or Markers of kidney damage (including abnormalities in the composition of the blood or urine or abnormalities in imaging tests). Lab Interpretation Abnormal (test code = 08121-8) [facility] Test Item Value Reference Range Interpretation Comments MAGNESIUM (test code = 1936690076) 1.8 mg/dL 1.7-2.4 Lab Interpretation (test code = Normal 27399-2) [facility] WITH [id number] 09:24:18 Test Item Value Reference Range Interpretation Comments WBC (test code = 6.37 See_Comment [Automated 6075-2) message] The sy stem which generated this result transmitted reference range : 4.20 - 10.70 10*3/?L. The reference range was not used to interpret this result as normal/abnormal . RBC (test code = 3.46 See_Comment L [Automated 102-8) message] The sy stem which generated this result transmitted reference range : 4.26 - 5.52 10*6/?L. The reference range was not used to interpret this result as normal/abnormal . HGB (test code = 11.5 g/dL 12.2-16.4 L 718-7) HCT (test code = 34.8 % 38.4-49.3 L 4544-3) MCV (test code = 100.6 fL 81.7-95.6 H 787-2) MCH (test code = 33.2 pg 26.1-32.7 H 785-6) MCHC (test code = 33.0 g/dL 31.2-35.0 786-4) RDW-SD (test code = 52.2 fL 38.5-51.6 H 92589-7) RDW-CV (test code = 14.2 % 12.1-15.4 788-0) PLT (test code = 206 See_Comment [Automated 777-3) message] The sy stem which generated this result transmitted reference range : 150 - 328 10*3/ ?L. The reference r lori was not used to interpret this result as normal/abnormal . MPV (test code = 10.0 fL 9.8-13.0 02301-6) NRBC/100 WBC (test 0.0 See_Comment [Automat ed code = 0021030628) message] The system which generated this result transmitted reference range : 0.0 - 10.0 /100 WBCs. The refer ence range was not u sed to interpret th is result as normal/abnormal . NRBC x10^3 (test code See_Comment [Auto mated = 1464109921) message] The s ystem which generated this result transmitted reference range : 10*3/?L. The reference range was not used to interpret this result as normal/abnormal . GRAN MAT (NEUT) % 60.5 % (test code = 770-8) IMM GRAN % (test code 0.20 % = 8826360235) LYMPH % (test code = 24.5 % 736-9) MONO % (test code = 10.8 % 5905-5) EOS % (test code = 3.5 % 713-8) BASO % (test code = 0.5 % 706-2) GRAN MAT x10^3(ANC) 3.86 10*3/uL 1.99-6.95 (test code = 4810102937) IMM GRAN x10^3 (test 0.00-0.06 code = 6626183539) LYMPH x10^3 (test code 1.56 10*3/uL 1.09-3.23 = 731-0) MONO x10^3 (test code 0.69 10*3/uL 0.36-1.02 = 742-7) EOS x10^3 (test code = 0.22 10*3/uL 0.06-0.53 711-2) BASO x10^3 (test code 0.03 10*3/uL 0.01-0.09 = 704-7) Lab Interpretation Abnormal (test code = 11145-4) [facility] GLUCOSE (AUTOMATED)2022-11-25 01:09:40 Test Item Value Reference Range Interpretation Comments POCT GLU (test code = 6952877023) 233 mg/dL 70-110 H Lab Interpretation (test code = Abnormal 61096-7) [facility] GLUCOSE (AUTOMATED)2022-11-24 22:21:51 Test Item Value Reference Range Interpretation Comments POCT GLU (test code = 9450619095) 161 mg/dL 70-110 H Lab Interpretation (test code = Abnormal 60193-2) [facility] GLUCOSE (AUTOMATED)2022-11-24 17:45:10 Test Item Value Reference Range Interpretation Comments POCT GLU (test code = 7727526858) 131 mg/dL 70-110 H Lab Interpretation (test code = Abnormal 07241-5) [facility] GLUCOSE (AUTOMATED)2022-11-24 13:22:53 Test Item Value Reference Range Interpretation Comments POCT GLU (test code = 0251255752) 111 mg/dL 70-110 H Lab Interpretation (test code = Abnormal 63302-4) [facility]A1C[facility]2022-11-24 02:35:11 Test Item Value Reference Range Interpretation Comments HGB A1C (test code = 6.2 % 4.0-5.7 H 4548-4) ANURAG (test code = ANURAG) Reference RangesNormal: <5.7%Prediabetes: 5.7 - 6.4%Diabetes: > 6.5% Lab Interpretation (test Abnormal code = 73618-7) [facility] GLUCOSE (AUTOMATED)2022-11-24 00:19:30 Test Item Value Reference Range Interpretation Comments POCT GLU (test code = 2546339213) 168 mg/dL 70-110 H Lab Interpretation (test code = Abnormal 88176-7) [facility] GLUCOSE (AUTOMATED)2022-11-23 20:57:17 Test Item Value Reference Range Interpretation Comments POCT GLU (test code = 7833115617) 161 mg/dL 70-110 H Lab Interpretation (test code = Abnormal 79986-3) [facility] GLUCOSE (AUTOMATED)2022-11-23 17:11:11 Test Item Value Reference Range Interpretation Comments POCT GLU (test code = 2930712030) 145 mg/dL 70-110 H Lab Interpretation (test code = Abnormal 91221-2) [facility] GLUCOSE (AUTOMATED)2022-11-23 13:16:42 Test Item Value Reference Range Interpretation Comments POCT GLU (test code = 4542122860) 97 mg/dL 70-110 Lab Interpretation (test code = Normal 16900-5) [facility] GLUCOSE (AUTOMATED)2022-11-23 01:28:09 Test Item Value Reference Range Interpretation Comments POCT GLU (test code = 2524766095) 172 mg/dL 70-110 H Lab Interpretation (test code = Abnormal 56197-8) [facility] GLUCOSE (AUTOMATED)2022-11-22 22:56:38 Test Item Value Reference Range Interpretation Comments POCT GLU (test code = 7772099719) 142 mg/dL 70-110 H Lab Interpretation (test code = Abnormal 67940-2) [facility]-22 22:09:05 Test Item Value Reference Range Interpretation Comments Height (test code = 72 in 6449178822) Weight (test code = 146 lbs 8194931114) Systolic BP (test code = 128 mmHg 6660264243) Diastolic BP (test code 61 mmHg = 2274742256) Heart Rate (test code = 63 bpm 2941118850) LVOT diameter (test code 2.20 cm = 1297479147) LVOT area (test code = 3.80 cm2 7949609476) BSA (test code = 1.86 m2 7876718508) Aortic valve mean 230.5 cm/s velocity (test code = 1351846373) Ao peak orin (test code = 330.0 cm/s 2559411588) Ao VTI (test code = 66.1 cm 4408458689) Ao max PG (test code = 44.00 mm[Hg] 3343352727) AV peak gradient (test 44.0 mmHg code = 8461803910) AV mean gradient (test 24.4 mmHg code = 9626658311) Ao root diam (test code 2.70 cm = 2949703844) Aortic root (test code = 2.7 cm 2554704703) Ao root annulus (test 2.7 cm code = 2649108717) LA size (test code = 5.7 cm 3341106971) LVIDD (test code = 4.00 cm 5392297173) Left Ventricular End 71.3 mL Diastolic Volume by Teichholz Method (test code = 5118464) IVS (test code = 1.04 cm 1945247523) Interventricular Septum 1.04 cm Diastolic Thickness by 2D (test code = 9878120) LVPWD (test code = 1.02 cm 5086835126) PW (test code = 1.02 cm 0.6-1.0 0281386082) EF(Teich) (test code = 73.40 % 6412620285) LVIDS (test code = 2.34 cm 0575169992) Left Ventricular End 19.0 mL Systolic Volume by Teichholz Method (test code = 3478416) FS (test code = 42 % 3577917016) EF - 2D (test code = 73.40 % 02314660) MV Prop V (test code = 71.70 cm/s 3148503617) MV Peak E Orin (test code 117.3 cm/s = 0974425470) E wave decelartion time 0.15 s (test code = 4985986196) LAV(MOD-sp4) (test code 95.10 mL = 3372700428) LVOT stroke volume (test 80.90 cm3 code = 8980767521) LVOT peak orin (test code 104.4 cm/s = 2138063908) LVOT mn grad (test code 2.4 mmHg = 5834150467) AV LVOT peak gradient 4.4 mmHg (test code = 3395055911) LVOT peak VTI (test code 21.3 cm = 7706588720) AV area by cont VTI 1.2 cm2 (test code = 3954011502) AV area peak orin (test 1.2 cm2 code = 3764340662) LV V1 mean (test code = 73.30 cm/s 5147541128) AV valve area (test code 1.22 cm2 = 1619084249) Tapse (test code = 0.90 cm 7458685775) LA Volume Index (BP) 52.1 mL/m2 (test code = 4498378700) LA volume (BP) (test 97.1 mL code = 9684241209) LAV(MOD-sp2) (test code 88.20 mL = 6967329637) Radiology Study observation (narrative) (test code = 85669-1) ANURAG (test code = ANURAG) ?Left?Ventricle: Left ventricle size is normal. Mildly increased wall thickness. Normal wall motion. ?Pulmonic?Valve: Pulmonic valve is normal in structure and function. ?Tricuspid?Valve: Tricuspid valve structure is normal. Left VentricleLeft ventricle size is normal. Mildly increased wall thickness. Septal motion is consistent with pacing. Normal wall motion. Normal systolic function with a visually estimated EF of 60 - 65%. There is pseudonormal diastolic dysfunction.Right VentricleRight ventricle is mildly dilated. Normal systolic function, Pacer wires notedLeft AtriumLeft atrium is moderately dilated.Right AtriumRight atrium is mildly dilated.Mitral ValveMildly thickened leaflets. Moderate mitral annular calcification. Mild to moderate transvalvular regurgitation.Tricusp id ValveTricuspid valve structure is normal. Moderate transvalvular regurgitation. Right ventricular systolic pressure is 40-45 mmHg. RA pressure is 10-15 mmHg.Aortic ValveSeverely thickened cusps. Severely calcified cusps. No transvalvular regurgitation. Consistent with moderate to severe stenosis. AV mean gradient is 24.4 mmHg. AV peak gradient is 44.0 mmHg. AV area by continuity VTI is 1.2 cm2. AV area by peak velocity is 1.2 cm2.Pulmonic ValvePulmonic valve is normal in structure and function. Mild transvalvular regurgitation.Ascendi ng AortaMildly enlarged annulus, sinus of Valsalva and ascending aorta. Normal sized aorta.PericardiumSmal l pericardial effusion present.Study DetailsA complete echocardiogram was performed using 2D, color flow Doppler and spectral Doppler. The apical, parasternal and subcostal views were obtained. [facility] GLUCOSE (AUTOMATED)2022-11-22 20:51:55 Test Item Value Reference Range Interpretation Comments POCT GLU (test code = 6020067489) 162 mg/dL 70-110 H Lab Interpretation (test code = Abnormal 05639-3) [facility] GLUCOSE (AUTOMATED)2022-11-22 16:40:25 Test Item Value Reference Range Interpretation Comments POCT GLU (test code = 5913307671) 141 mg/dL 70-110 H Lab Interpretation (test code = Abnormal 70035-8) [facility] GLUCOSE (AUTOMATED)2022-11-22 14:09:11 Test Item Value Reference Range Interpretation Comments POCT GLU (test code = 6441103820) 120 mg/dL 70-110 H Lab Interpretation (test code = Abnormal 55202-4) [facility] GLUCOSE (AUTOMATED)2022-11-22 13:03:52 Test Item Value Reference Range Interpretation Comments POCT GLU (test code = 2477785574) 57 mg/dL 70-110 L Lab Interpretation (test code = Abnormal 46028-3) [facility] GLUCOSE (AUTOMATED)2022-11-22 12:48:15 Test Item Value Reference Range Interpretation Comments POCT GLU (test code = 4310903474) 60 mg/dL 70-110 L Lab Interpretation (test code = Abnormal 73513-4) [facility] GLUCOSE (AUTOMATED)2022-11-22 02:39:31 Test Item Value Reference Range Interpretation Comments POCT GLU (test code = 1384078466) 184 mg/dL 70-110 H Lab Interpretation (test code = Abnormal 43768-3) [facility] GLUCOSE (AUTOMATED)2022-11-21 22:42:07 Test Item Value Reference Range Interpretation Comments POCT GLU (test code = 2033336371) 87 mg/dL 70-110 Lab Interpretation (test code = Normal 32901-0) [facility] WITH [id number] 19:02:06 Test Item Value Reference Range Interpretation Comments WBC (test code = See_Comment [Automated 6690-2) message] The sy stem which generated this result transmitted reference range : 4.20 - 10.70 10*3/?L. The reference range was not used to interpret this result as normal/abnormal . RBC (test code = See_Comment L [Automated 789-8) message] The sy stem which generated this result transmitted reference range : 4.26 - 5.52 10*6/?L. The reference range was not used to interpret this result as normal/abnormal . HGB (test code = 11.5 g/dL 12.2-16.4 L 718-7) HCT (test code = 35.6 % 38.4-49.3 L 4544-3) MCV (test code = 101.4 fL 81.7-95.6 H 787-2) MCH (test code = 32.8 pg 26.1-32.7 H 785-6) MCHC (test code = 32.3 g/dL 31.2-35.0 786-4) RDW-SD (test code = 52.9 fL 38.5-51.6 H 00956-1) RDW-CV (test code = 14.1 % 12.1-15.4 788-0) PLT (test code = See_Comment [Automated 777-3) message] The sy stem which generated this result transmitted reference range : 150 - 328 10*3/ ?L. The reference r lori was not used to interpret this result as normal/abnormal . MPV (test code = 9.3 fL 9.8-13.0 L 71991-3) NRBC/100 WBC (test See_Comment [Automat ed code = 2618999378) message] The system which generated this result transmitted reference range : 0.0 - 10.0 /100 WBCs. The refer ence range was not u sed to interpret th is result as normal/abnormal . NRBC x10^3 (test code See_Comment [Auto mated = 4925973830) message] The s ystem which generated this result transmitted reference range : 10*3/?L. The reference range was not used to interpret this result as normal/abnormal . GRAN MAT (NEUT) % 64.9 % (test code = 770-8) IMM GRAN % (test code 0.40 % = 7782787452) LYMPH % (test code = 24.3 % 736-9) MONO % (test code = 8.0 % 5905-5) EOS % (test code = 2.0 % 713-8) BASO % (test code = 0.4 % 706-2) GRAN MAT x10^3(ANC) 4.86 10*3/uL 1.99-6.95 (test code = 3509481366) IMM GRAN x10^3 (test 0.03 10*3/uL 0.00-0.06 code = 0270528282) LYMPH x10^3 (test code 1.82 10*3/uL 1.09-3.23 = 731-0) MONO x10^3 (test code 0.60 10*3/uL 0.36-1.02 = 742-7) EOS x10^3 (test code = 0.15 10*3/uL 0.06-0.53 711-2) BASO x10^3 (test code 0.03 10*3/uL 0.01-0.09 = 704-7) Lab Interpretation Abnormal (test code = 69890-6) [facility] [id number] 12:38:00 Test Item Value Reference Range Interpretation Comments SODIUM (test code = 139 MMOL/L 137-145 N NA) POTASSIUM (test code = 4.6 MMOL/L 3.5-5.1 N K) CHLORIDE (test code = 104 MMOL/L 98-107 N CL) CARBON DIOXIDE (test 24 MMOL/L 22-30 N code = CO2) GLUCOSE (test code = 232 MG/DL 74-106 H GLU) BLOOD UREA NITROGEN 39 MG/DL 9-20 H (test code = BUN) GLOMERULAR FILTRATION 36 Report ing units: RATE (test code = GFR) ml/mi n/1.73 m2 (Modified MDRD Formula)Referen ce Range: > or = 6 0 ml/min/1.73 m2 CREATININE (test code 1.80 MG/DL 0.66-1.25 H = CREAT) CALCIUM (test code = 9.2 MG/DL 8.4-10.2 N CA) PROTHROMBIN [id number] 12:34:00 Test Item Value Reference Range Interpretation Comments PROTHROMBIN TIME 12.4 SECONDS 9.4-12.7 N PATIENT (test code = PTP) INTERNATIONAL NORMAL 1.1 0.86-1.14 N The INR is to be RATIO (test code = used only for INR) monitoring oral anticoagulantth erap y. INDICATION I NR VALUE ---- ---- ---- -------1. Prophylaxis, de ep venous thrombos is, including high risk surgery. 2.0 - 3.0 2. Prophylaxis, deep venous thrombosis, hip surgery, treatm ent for deep venous thrombosis or pulmonary prevention of systemic emboli sm in patients wit h valvular heart disease, atrial fibrillation, tissue heart va lve, or acute myocar dial infarction. 2.0 - 3.0 3. Parts Person al prosthesis hear t valves, recurre nt systemic emboli sm. 3.0 - 4.5 PTT [id number] 12:34:00 Test Item Value Reference Range Interpretation Comments PTT ACTIVATED (test code = APTT) 35.2 SECONDS 26.2-35.4 N CBC W/AUTO [id number] 12:24:00 Test Item Value Reference Range Interpretation Comments WHITE BLOOD CELL (test code = 8.3 K/MM3 3.8-9.8 N WBC) RED BLOOD CELL (test code = 3.44 M/MM3 3.95-5.67 L RBC) HEMOGLOBIN (test code = HGB) 11.7 G/DL 12.4-16.7 L HEMATOCRIT (test code = HCT) 35.6 % 35.9-49.5 L MEAN CELL VOLUME (test code = 104 fL 81.7-96.1 H MCV) MEAN CELL HGB (test code = MCH) 34.0 pg 27.6-33.2 H MEAN CELL HGB CONCETRATION 32.9 % 32.9-35.5 N (test code = MCHC) RED CELL DISTRIBUTION WIDTH 14.8 % 12.1-15.2 N (test code = RDW) PLATELET COUNT (test code = 238 K/MM3 129-368 N PLT) MEAN PLATELET VOLUME (test code 9.6 fl 7.4-10.4 N = MPV) NEUTROPHIL % (test code = NT%) 67.2 % 43-75 N IMMATURE GRANULOCYTE % (test 0.4 % 0.0-2.0 N code = IG%) LYMPHOCYTE % (test code = LY%) 22.2 % 14-44 N MONOCYTE % (test code = MO%) 7.9 % 4-13 N EOSINOPHIL % (test code = EO%) 2.1 % 0-6 N BASOPHIL % (test code = BA%) 0.2 % 0-2 N NUCLEATED RBC % (test code = 0.0 % 0-1.0 N NRBC%) NEUTROPHIL # (test code = NT#) 5.57 K/mm3 2.0-7.6 N IMMATURE GRANULOCYTE # (test 0.03 x10 3/uL 0-0.03 N code = IG#) LYMPHOCYTE # (test code = LY#) 1.84 K/mm3 1.0-3.8 N MONOCYTE # (test code = MO#) 0.65 K/mm3 0.1-0.8 N EOSINOPHIL # (test code = EO#) 0.17 K/mm3 0.0-0.2 N BASOPHIL # (test code = BA#) 0.02 K/mm3 0.0-0.2 N NUCLEATED RBC # (test code = 0.00 K/mm3 0.0-0.1 N NRBC#) POCT GLUCOSE (AUTOMATED)2021-08-24 12:54:24 Test Item Value Reference Range Interpretation Comments POCT GLU (test code = 9111125735) 122 mg/dL 70-110 H Lab Interpretation (test code = Abnormal 22244-7) [facility] METABOLIC PANEL (NA, K, CL, CO2, GLUCOSE, BUN, CREATININE, CA)2021-08-24 11:19:07 Test Item Value Reference Range Interpretation Comments NA (test code = 139 mmol/L 135-145 7163521442) K (test code = 3.8 mmol/L 3.5-5 4284215322) CL (test code = 109 mmol/L 98-108 H 3965217524) CO2 TOTAL (test code = 24 mmol/L 23-31 8720914587) AGAP (test code = 2-16 5428226088) BUN (test code = 26 mg/dL 7-23 H 0684278255) GLUCOSE (test code = 121 mg/dL 70-110 H 5312659678) CREATININE (test code = 1.22 mg/dL 0.6-1.25 1477924175) CALCIUM (test code = 8.2 mg/dL 8.6-10.6 L 0608870938) eGFR (test code = mL/min/1.73m2 [id number]) ANURAG (test code = ANURAG) Association of Glomerular Filtration Rate (GFR) and Staging of Kidney Disease* + --+ --+ ------+| GFR (mL/min/1.73 m2) ?| With Kidney Damage ?| ?Without Kidney Damage+ --------+ --------+ +| ?>90 ?| ?Stage one ?| ? Normal ?+ ---+ ---+ -------+| ?60-89 ?| ?Stage two ?| ? Decreased GFR ? + --+ --+ ------+| ?30-59 ?| ?Stage three ?| ? Stage three ? + --+ --+ ------+| ?15-29 ?| ?Stage four ? | ? Stage four ?+ ---+ ---+ -------+| ?<15 (or dialysis) ? ?| ?Stage five ? | ? Stage five ?+ ---+ ---+ -------+ *Each stage assumes the associated GFR level has been in effect for at least three months. ?Stages 1 to 5, with or without kidney disease, indicate chronic kidney disease. Notes: Determination of stages one and two (with eGFR >59mL/min/1.73 m2) requires estimation of kidney damage for at least three months as defined by structural or functional abnormalities of the kidney, manifested by either:Pathological abnormalities or Markers of kidney damage (including abnormalities in the composition of the blood or urine or abnormalities in imaging tests). Lab Interpretation Abnormal (test code = 05608-3) [facility] GLUCOSE (AUTOMATED)2021-08-24 01:25:03 Test Item Value Reference Range Interpretation Comments POCT GLU (test code = 4094432091) 196 mg/dL 70-110 H Lab Interpretation (test code = Abnormal 19229-5) [facility] GLUCOSE (AUTOMATED)2021-08-24 01:25:03 Test Item Value Reference Range Interpretation Comments POCT GLU (test code = 8462034189) 205 mg/dL 70-110 H Lab Interpretation (test code = Abnormal 54583-7) [facility] GLUCOSE (AUTOMATED)2021-08-23 19:30:08 Test Item Value Reference Range Interpretation Comments POCT GLU (test code = 9540776048) 216 mg/dL 70-110 H Lab Interpretation (test code = Abnormal 63244-4) [facility] GLUCOSE (AUTOMATED)2021-08-23 14:24:08 Test Item Value Reference Range Interpretation Comments POCT GLU (test code = 6725301196) 117 mg/dL 70-110 H Lab Interpretation (test code = Abnormal 84247-0) [facility] GLUCOSE (AUTOMATED)2021-08-23 05:34:06 Test Item Value Reference Range Interpretation Comments POCT GLU (test code = 7353889757) 134 mg/dL 70-110 H Lab Interpretation (test code = Abnormal 12037-1) [facility] GLUCOSE (AUTOMATED)2021-08-22 22:08:16 Test Item Value Reference Range Interpretation Comments POCT GLU (test code = 0099018177) 186 mg/dL 70-110 H Lab Interpretation (test code = Abnormal 04213-6) [facility] 19:05:05 Test Item Value Reference Range Interpretation Comments Height (test code = in 9597579692) Weight (test code = lbs 0108852357) Systolic BP (test code = mmHg 3980679713) Diastolic BP (test code mmHg = 6443992291) Heart Rate (test code = bpm 7921836568) BSA (test code = 1.96 m2 0020510957) Ao root annulus (test 3.7 cm code = 0701240785) Ao root diam (test code 3.70 cm = 8472541195) Aortic root (test code = 3.7 cm 0269461122) LVOT diameter (test code 2.14 cm = 0872481280) LVIDD (test code = 3.50 cm 1042838472) IVS (test code = 1.30 cm 9593602641) Interventricular Septum 1.30 cm Diastolic Thickness by 2D (test code = 8680814) LVPWD (test code = 1.30 cm 7602098398) PW (test code = 1.30 cm 0.6-1.3 2200420794) EF(Teich) (test code = 55.90 % 6504884878) LVIDS (test code = 2.50 cm 4394698172) FS (test code = 28 % 9221545624) EF - 2D (test code = 55.90 % 18121465) LA size (test code = 5.0 cm 2337036541) TR Peak Orin (test code = 275.8 cm/s 6362937199) Triscuspid Valve mmHg Regurgitation Peak Gradient (test code = 8508170883) Pulmonic Regurgitant End 141.2 cm/s Max Velocity (test code = 2200645291) LAV(MOD-sp4) (test code 56.90 mL = 2677676547) MV stenosis pressure 1/2 42.8 ms time (test code = 6986359701) E wave decelartion time 0.15 s (test code = 6667114740) MV Peak E Orin (test code 127.6 cm/s = 5562883285) MV Peak A Orin (test code 35.5 cm/s = 7256922670) E/A ratio (test code = ratio 5115911703) MV Prop V (test code = 74.50 cm/s 5547975007) MV E/e' septal (test 14.3 cm/s code = 2970753370) Tapse (test code = 1.06 cm 6670941546) LVOT stroke volume (test 46.10 cm3 code = 6443381767) LVOT peak orin (test code 71.3 cm/s = 0243852889) LVOT mn grad (test code mmHg = 8649090985) AV LVOT peak gradient mmHg (test code = 5229023545) LVOT peak VTI (test code 12.8 cm = 4225609425) LV V1 mean (test code = 43.20 cm/s 4045564188) Aortic valve mean 219.0 cm/s velocity (test code = 0502324368) Ao peak orin (test code = 305.7 cm/s 8015730594) Ao VTI (test code = 61.4 cm 6767743090) AV area by cont VTI 0.8 cm2 (test code = 2390008062) AV area peak orin (test 0.8 cm2 code = 7359721260) Ao max PG (test code = 37.50 mm[Hg] 1520139460) AV peak gradient (test mmHg code = 8521760116) AV valve area (test code 0.75 cm2 = 4145745120) AV mean gradient (test mmHg code = 6095916567) MR max PG (test code = 42.50 mm[Hg] 1470278537) MR max orin (test code = 326.10 cm/s 1719663007) Mr max orin (test code = 326.1 m/s 9644695778) Radiology Study observation (narrative) (test code = 19164-8) ANURAG (test code = ANURAG) Formatting of this result is different from the original. ?Left?Ventricle: Left ventricle size is normal. Moderately increased wall thickness. Normal wall motion. Normal systolic function with a visually estimated EF of 55 - 60%. ?Pulmonic?Valve: Pulmonic valve is normal in structure and function. ?Mitral?Valve: Mitral valve structure is normal. Mildly thickened leaflets. ?Tricuspid?Valve: Tricuspid valve structure is normal. Left VentricleLeft ventricle size is normal. Moderately increased wall thickness. Septal motion is normal. Normal wall motion. Normal systolic function with a visually estimated EF of 55 - 60%. There is pseudonormal diastolic dysfunction.Right VentricleRight ventricle is mildly dilated. Normal systolic function.Left AtriumLeft atrium is moderately dilated.Right AtriumRight atrium is mildly dilated.Mitral ValveMitral valve structure is normal. Mildly thickened leaflets. Mild transvalvular regurgitation.Tricusp id ValveTricuspid valve structure is normal. Mild transvalvular regurgitation. Right ventricular systolic pressure is 40-45 mmHg. RA pressure is 10-15 mmHg.Aortic ValveAortic valve structure is normal. Severely thickened cusps. Severely calcified cusps. No transvalvular regurgitation. Consistent with moderate to severe stenosis. AV mean gradient is 21.3 mmHg. AV peak gradient is 37.5 mmHg. AV area by continuity VTI is 0.8 cm2. AV area by peak velocity is 0.8 cm2.Pulmonic ValvePulmonic valve is normal in structure and function. Trace transvalvular regurgitation.Ascendi ng AortaMildly enlarged annulus, sinus of Valsalva and ascending aorta. Aorta is normal in size.PericardiumThe pericardium is normal. No pericardial effusion.Study DetailsStudy quality was adequate. A complete echocardiogram was performed using 2D, color flow Doppler and spectral Doppler. [facility] GLUCOSE (AUTOMATED)2021-08-22 16:50:45 Test Item Value Reference Range Interpretation Comments POCT GLU (test code = 4192425551) 159 mg/dL 70-110 H Lab Interpretation (test code = Abnormal 66542-4) [facility] GLUCOSE (AUTOMATED)2021-08-22 12:38:43 Test Item Value Reference Range Interpretation Comments POCT GLU (test code = 8910406495) 95 mg/dL 70-110 Lab Interpretation (test code = Normal 26293-2) [facility] [id number] 03:10:37 Test Item Value Reference Interpretation Comments Range TROPONIN I (test 0.023 ng/mL See_Comment [Automated code = 2710184614) message] The system which generated this result transmitted reference range : <=0.034. The reference range was not used to interpret this result as normal/abnormal . ANURAG (test code = Reference (Normal) ANURAG) Range (defined by the 99th percentile reference limit): <= 0.034 ng/mL Note: Cardiac troponin begins to rise 3-4 hours after the onset of ischemia. Repeat in 4-6 hours if the sample was drawn within 3-4 hours of the onset of the symptom and found normal. Diagnosis of myocardial injury is made with acute changes in cTn concentrations with at least one serial sample above the 99th percentile upper reference limit (URL), taken together with the patient's clinical presentation. Biotin has been reported to cause a negative bias, interpret results relative to patient's use of biotin. Lab Interpretation Normal (test code = 77755-2) [facility] GLUCOSE (AUTOMATED)2021-08-22 01:47:00 Test Item Value Reference Range Interpretation Comments POCT GLU (test code = 6999424852) 160 mg/dL 70-110 H Lab Interpretation (test code = Abnormal 58163-9) [facility] [id number] 22:01:44 Test Item Value Reference Interpretation Comments Range TROPONIN I (test 0.019 ng/mL See_Comment [Automated code = 3661426508) message] The system which generated this result transmitted reference range : <=0.034. The reference range was not used to interpret this result as normal/abnormal . ANURAG (test code = Reference (Normal) ANURAG) Range (defined by the 99th percentile reference limit): <= 0.034 ng/mL Note: Cardiac troponin begins to rise 3-4 hours after the onset of ischemia. Repeat in 4-6 hours if the sample was drawn within 3-4 hours of the onset of the symptom and found normal. Diagnosis of myocardial injury is made with acute changes in cTn concentrations with at least one serial sample above the 99th percentile upper reference limit (URL), taken together with the patient's clinical presentation. Biotin has been reported to cause a negative bias, interpret results relative to patient's use of biotin. Lab Interpretation Normal (test code = 88480-2) [facility] GLUCOSE (AUTOMATED)2021-08-21 21:49:57 Test Item Value Reference Range Interpretation Comments POCT GLU (test code = 2287737931) 180 mg/dL 70-110 H Lab Interpretation (test code = Abnormal 29278-8) [facility] System[facility]osph[facility] [id number] 21:49:41 Test Item Value Reference Range Interpretation Comments PHOSPHORUS (test code = 2.9 mg/dL 2.5-5 Slig ht hemolysis 6627065684) Lab Interpretation (test Normal code = 78067-7) [facility] GLUCOSE (AUTOMATED)2021-08-21 20:15:01 Test Item Value Reference Range Interpretation Comments POCT GLU (test code = 2191917368) 125 mg/dL 70-110 H Lab Interpretation (test code = Abnormal 46121-0) [facility] SystemThyroid Stimulating Hormone (TSH)2021-08-21 20:01:23 Test Item Value Reference Range Interpretation Comments TSH (test code = See_Comment Biotin has been 2267785207) reported to cau se a negative bias, interpret resul ts relative to pat ient's use of biotin. [Automated mess age] The system [employer] generated this result transmitted ref erence range: 0.45 - 4 .70 mIU/L. The refe rence range was not u sed to interpret this result as normal/abnor mal. Lab Interpretation (test Normal code = 65925-9) [facility] SystemTROPONIN [id number] 11:50:18 Test Item Value Reference Interpretation Comments Range TROPONIN I (test 0.031 ng/mL See_Comment [Automated code = 1493163500) message] The system which generated this result transmitted reference range : <=0.034. The reference range was not used to interpret this result as normal/abnormal . ANURAG (test code = Reference (Normal) ANURAG) Range (defined by the 99th percentile reference limit): <= 0.034 ng/mL Note: Cardiac troponin begins to rise 3-4 hours after the onset of ischemia. Repeat in 4-6 hours if the sample was drawn within 3-4 hours of the onset of the symptom and found normal. Diagnosis of myocardial injury is made with acute changes in cTn concentrations with at least one serial sample above the 99th percentile upper reference limit (URL), taken together with the patient's clinical presentation. Biotin has been reported to cause a negative bias, interpret results relative to patient's use of biotin. Lab Interpretation Normal (test code = 34749-2) [facility] SystemN-TERMINAL [id number] 11:46:57 Test Item Value Reference Range Interpretation Comments NT-proBNP (test code 3310 pg/mL See_Comment H [Autom ated = 2991738920) message] The system which generated this result transmitted reference range : <=450. The reference range was not used to interpret this result as normal/abnormal . ANURAG (test code = ANURAG) Biotin has been reported to cause a negative bias, interpret results relative to patient's use of biotin. Lab Interpretation Abnormal (test code = 03289-4) [facility] SystemCOMP. METABOLIC PANEL (41094)2021-08-21 11:45:36 Test Item Value Reference Range Interpretation Comments NA (test code = 141 mmol/L 135-145 6903424501) K (test code = 4.3 mmol/L 3.5-5 6389180758) CL (test code = 102 mmol/L 98-108 5169722647) CO2 TOTAL (test code = 25 mmol/L 23-31 0047932634) AGAP (test code = 2-16 7543148597) BUN (test code = 45 mg/dL 7-23 H 4502283818) GLUCOSE (test code = 147 mg/dL 70-110 H 0412462539) CREATININE (test code = 2.41 mg/dL 0.6-1.25 H 1218971873) TOTAL BILI (test code = 1.7 mg/dL 0.1-1.1 H 4895198269) CALCIUM (test code = 9.9 mg/dL 8.6-10.6 5685231587) T PROTEIN (test code = 7.4 g/dL 6.3-8.2 1439505536) ALBUMIN (test code = 4.5 g/dL 3.5-5 5976905212) ALK PHOS (test code = 78 U/L 34-122 8582861451) ALTv (test code = 20 U/L 5-50 2-6) AST(SGOT) (test code = 25 U/L 13-40 3111978653) eGFR (test code = mL/min/1.73m2 2086800335) ANURAG (test code = ANURAG) Association of Glomerular Filtration Rate (GFR) and Staging of Kidney Disease* + --+ --+ ------+| GFR (mL/min/1.73 m2) ?| With Kidney Damage ?| ?Without Kidney Damage+ --------+ --------+ +| ?>90 ?| ?Stage one ?| ? Normal ?+ ---+ ---+ -------+| ?60-89 ?| ?Stage two ?| ? Decreased GFR ? + --+ --+ ------+| ?30-59 ?| ?Stage three ?| ? Stage three ? + --+ --+ ------+| ?15-29 ?| ?Stage four ? | ? Stage four ?+ ---+ ---+ -------+| ?<15 (or dialysis) ? ?| ?Stage five ? | ? Stage five ?+ ---+ ---+ -------+ *Each stage assumes the associated GFR level has been in effect for at least three months. ?Stages 1 to 5, with or without kidney disease, indicate chronic kidney disease. Notes: Determination of stages one and two (with eGFR >59mL/min/1.73 m2) requires estimation of kidney damage for at least three months as defined by structural or functional abnormalities of the kidney, manifested by either:Pathological abnormalities or Markers of kidney damage (including abnormalities in the composition of the blood or urine or abnormalities in imaging tests). Lab Interpretation Abnormal (test code = 33415-7) [facility] SystemACTIVATED PARTIAL THRMPLAS [id number] 11:37:57 Test Item Value Reference Range Interpretation Comments APTT Patient (test See_Comment [Automat ed code = 3173-2) message] The system which generated this result transmitted reference range : 23 - 38 Seconds . The reference range was not used to interpr et this result as normal/abnormal . ANURAG (test code = ANURAG) The [facility] patient population mean normal value for aPTT is 30 seconds. Lab Interpretation Normal (test code = 80634-9) [facility] SystemPROTHROMBIN TIME / [id number] 11:35:57 Test Item Value Reference Range Interpretation Comments PROTIME PATIENT (test See_Comment [Auto mated message] code = 5964-2) The system wh ich generated this result transmitted ref erence range: 12.0 - 1 4.7 Seconds. The re ference range was not u sed to interpret this result as normal/abnor mal. INR (test code = 6301-6) Nor mal INR <1.1; Warfarin Therap eutic range 2.0 to 3. 0 or 2.5 to 3.5, dep ending upon the indica tions. Lab Interpretation (test Normal code = 05245-1) [facility] SystemCB WITH [id number] 11:11:54 Test Item Value Reference Range Interpretation Comments WBC (test code = See_Comment H [Automated 6690-2) message] The sy stem which generated this result transmitted reference range : 4.20 - 10.70 10*3/?L. The reference range was not used to interpret this result as normal/abnormal . RBC (test code = See_Comment L [Automated 199-8) message] The sy stem which generated this result transmitted reference range : 4.26 - 5.52 10*6/?L. The reference range was not used to interpret this result as normal/abnormal . HGB (test code = 13.6 g/dL 12.2-16.4 718-7) HCT (test code = 40.4 % 38.4-49.3 4544-3) MCV (test code = 99.5 fL 81.7-95.6 H 787-2) MCH (test code = 33.5 pg 26.1-32.7 H 785-6) MCHC (test code = 33.7 g/dL 31.2-35 786-4) RDW-SD (test code = 50.3 fL 38.5-51.6 73511-7) RDW-CV (test code = 13.6 % 12.1-15.4 788-0) PLT (test code = See_Comment [Automated 777-3) message] The sy stem which generated this result transmitted reference range : 150 - 328 10*3/ ?L. The reference r lori was not used to interpret this result as normal/abnormal . MPV (test code = 9.5 fL 9.8-13 L 06443-0) NRBC/100 WBC (test See_Comment [Automat ed code = 0100598319) message] The system which generated this result transmitted reference range : 0.0 - 10.0 /100 WBCs. The refer ence range was not u sed to interpret th is result as normal/abnormal . NRBC x10^3 (test code See_Comment [Auto mated = 0321706579) message] The s ystem which generated this result transmitted reference range : 10*3/?L. The reference range was not used to interpret this result as normal/abnormal . GRAN MAT (NEUT) % 75.7 % (test code = 770-8) IMM GRAN % (test code 0.30 % = 5729608853) LYMPH % (test code = 15.4 % 736-9) MONO % (test code = 7.0 % 5905-5) EOS % (test code = 1.3 % 713-8) BASO % (test code = 0.3 % 706-2) GRAN MAT x10^3(ANC) 8.66 10*3/uL 1.99-6.95 H (test code = 8402146547) IMM GRAN x10^3 (test 0.04 10*3/uL 0-0.06 code = 0771148665) LYMPH x10^3 (test code 1.77 10*3/uL 1.09-3.23 = 731-0) MONO x10^3 (test code 0.80 10*3/uL 0.36-1.02 = 742-7) EOS x10^3 (test code = 0.15 10*3/uL 0.06-0.53 711-2) BASO x10^3 (test code 0.04 10*3/uL 0.01-0.09 = 704-7) Lab Interpretation Abnormal (test code = 88282-3) [facility]IC [id number] 11:40:00 Test Item Value Reference Range Interpretation Comments SODIUM (test code = 141 MMOL/L 137-145 N NA) POTASSIUM (test code = 4.9 MMOL/L 3.5-5.1 N K) CHLORIDE (test code = 104 MMOL/L 98-107 N CL) CARBON DIOXIDE (test 29 MMOL/L 22-30 N code = CO2) ANION GAP (test code = 13 MMOL/L 14-24 L GAP) GLUCOSE (test code = 170 MG/DL 74-106 H GLU) BLOOD UREA NITROGEN 36 MG/DL 9-20 H (test code = BUN) GLOMERULAR FILTRATION 30 Report ing units: RATE (test code = GFR) ml/mi n/1.73 m2 (Modified MDRD Formula)Referen ce Range: > or = 6 0 ml/min/1.73 m2 CREATININE (test code 2.10 MG/DL 0.66-1.25 H = CREAT) CALCIUM (test code = 9.3 MG/DL 8.4-10.2 N CA) [id number] 11:40:00 Test Item Value Reference Range Interpretation Comments MAGNESIUM (test code = MAG) 2.1 MG/DL 1.6-2.3 N PROTHROMBIN [id number] 11:21:00 Test Item Value Reference Range Interpretation Comments PROTHROMBIN TIME 12.9 SECONDS 9.4-12.7 H PATIENT (test code = PTP) INTERNATIONAL NORMAL 1.2 0.86-1.14 H The INR is to be RATIO (test code = used only for INR) monitoring oral anticoagulantth erap y. INDICATION I NR VALUE ---- ---- ---- -------1. Prophylaxis, de ep venous thrombos is, including high risk surgery. 2.0 - 3.0 2. Prophylaxis, deep venous thrombosis, hip surgery, treatm ent for deep venous thrombosis or pulmonary prevention of systemic emboli sm in patients wit h valvular heart disease, atrial fibrillation, tissue heart va lve, or acute myocar dial infarction. 2.0 - 3.0 3. Parts Person al prosthesis hear t valves, recurre nt systemic emboli sm. 3.0 - 4.5 PTT [id number] 11:21:00 Test Item Value Reference Range Interpretation Comments PTT ACTIVATED (test code = APTT) 37.0 SECONDS 26.2-35.4 H CBC W/AUTO [id number] 11:10:00 Test Item Value Reference Range Interpretation Comments WHITE BLOOD CELL (test code = 6.8 K/MM3 3.8-9.8 N WBC) RED BLOOD CELL (test code = 3.60 M/MM3 3.95-5.67 L RBC) HEMOGLOBIN (test code = HGB) 12.1 G/DL 12.4-16.7 L HEMATOCRIT (test code = HCT) 37.0 % 35.9-49.5 N MEAN CELL VOLUME (test code = 103 fL 81.7-96.1 H MCV) MEAN CELL HGB (test code = MCH) 33.6 pg 27.6-33.2 H MEAN CELL HGB CONCETRATION 32.7 % 32.9-35.5 L (test code = MCHC) RED CELL DISTRIBUTION WIDTH 15.1 % 12.1-15.2 N (test code = RDW) PLATELET COUNT (test code = 225 K/MM3 129-368 N PLT) MEAN PLATELET VOLUME (test code 9.2 fl 7.4-10.4 N = MPV) NEUTROPHIL % (test code = NT%) 63.6 % 43-75 N IMMATURE GRANULOCYTE % (test 0.3 % 0.0-2.0 N code = IG%) LYMPHOCYTE % (test code = LY%) 22.1 % 14-44 N MONOCYTE % (test code = MO%) 11.2 % 4-13 N EOSINOPHIL % (test code = EO%) 2.2 % 0-6 N BASOPHIL % (test code = BA%) 0.6 % 0-2 N NUCLEATED RBC % (test code = 0.0 % 0-1.0 N NRBC%) NEUTROPHIL # (test code = NT#) 4.33 K/mm3 2.0-7.6 N IMMATURE GRANULOCYTE # (test 0.02 x10 3/uL 0-0.03 N code = IG#) LYMPHOCYTE # (test code = LY#) 1.50 K/mm3 1.0-3.8 N MONOCYTE # (test code = MO#) 0.76 K/mm3 0.1-0.8 N EOSINOPHIL # (test code = EO#) 0.15 K/mm3 0.0-0.2 N BASOPHIL # (test code = BA#) 0.04 K/mm3 0.0-0.2 N NUCLEATED RBC # (test code = 0.00 K/mm3 0.0-0.1 N NRBC#) COVID 19 Asymptomatic IH [id number] 10:27:00 Test Item Value Reference Range Interpretation Comments COVID 19 NEGATIVE Negative "Negative resul ts from Asymptomatic IH AG patients with symptom (test code = onset beyondfiv e days, COVNONPUIAG) should be treat ed as presumptive, andconfirmation with a molecular assay , if necessary forpa tient management may be performed. Nega tive results do notr ule out COVID-19 and sh ould not be used as the sole basisfor treatm ent or patient managem ent decisions, includinginfect ion control decisio ns. Negative result s should beconsidered in the context of a pa tients recent exposure s,history, and the presenc e of clinical signs and symptomsconsist ent with COVID-19.This t est detects both vi able andnon-viable S ARS-CoV and SARS CoV-2. Test performance dep endson the amount of virus (antigen) in the sample." Spec Comments: PRE-OP TEEGLUCOSE BEDSIDE [id number] 15:09:00 Test Item Value Reference Range Interpretation Comments GLUCOSE BEDSIDE TESTING (test code 160 MG/DL 60-99 H = GLUBED) CBC W/AUTO [id number] 12:06:00 Test Item Value Reference Range Interpretation Comments WHITE BLOOD CELL (test code = 7.1 K/MM3 3.8-9.8 N WBC) RED BLOOD CELL (test code = 3.67 M/MM3 3.95-5.67 L RBC) HEMOGLOBIN (test code = HGB) 11.7 G/DL 12.4-16.7 L HEMATOCRIT (test code = HCT) 35.1 % 35.9-49.5 L MEAN CELL VOLUME (test code = 96 fL 81.7-96.1 N MCV) MEAN CELL HGB (test code = MCH) 31.9 pg 27.6-33.2 N MEAN CELL HGB CONCETRATION 33.3 % 32.9-35.5 N (test code = MCHC) RED CELL DISTRIBUTION WIDTH 15.5 % 12.1-15.2 H (test code = RDW) PLATELET COUNT (test code = 199 K/MM3 129-368 N PLT) MEAN PLATELET VOLUME (test code 9.9 fl 7.4-10.4 N = MPV) NEUTROPHIL % (test code = NT%) 70.2 % 43-75 N IMMATURE GRANULOCYTE % (test 0.3 % 0.0-2.0 N code = IG%) LYMPHOCYTE % (test code = LY%) 19.7 % 14-44 N MONOCYTE % (test code = MO%) 7.9 % 4-13 N EOSINOPHIL % (test code = EO%) 1.6 % 0-6 N BASOPHIL % (test code = BA%) 0.3 % 0-2 N NUCLEATED RBC % (test code = 0.0 % 0-1.0 N NRBC%) NEUTROPHIL # (test code = NT#) 4.96 K/mm3 2.0-7.6 N IMMATURE GRANULOCYTE # (test 0.02 x10 3/uL 0-0.03 N code = IG#) LYMPHOCYTE # (test code = LY#) 1.39 K/mm3 1.0-3.8 N MONOCYTE # (test code = MO#) 0.56 K/mm3 0.1-0.8 N EOSINOPHIL # (test code = EO#) 0.11 K/mm3 0.0-0.2 N BASOPHIL # (test code = BA#) 0.02 K/mm3 0.0-0.2 N NUCLEATED RBC # (test code = 0.00 K/mm3 0.0-0.1 N NRBC#) GLUCOSE BEDSIDE [id number] 11:55:00 Test Item Value Reference Range Interpretation Comments GLUCOSE BEDSIDE TESTING (test code 158 MG/DL 60-99 H = GLUBED) GLUCOSE BEDSIDE [id number] 07:18:00 Test Item Value Reference Range Interpretation Comments GLUCOSE BEDSIDE TESTING (test code 130 MG/DL 60-99 H = GLUBED) GLUCOSE BEDSIDE [id number] 06:02:00 Test Item Value Reference Range Interpretation Comments GLUCOSE BEDSIDE TESTING (test code 167 MG/DL 60-99 H = GLUBED) BASIC METABOLIC [id number] 05:11:00 Test Item Value Reference Range Interpretation Comments SODIUM (test code = 138 MMOL/L 137-145 N NA) POTASSIUM (test code = 4.2 MMOL/L 3.5-5.1 N K) CHLORIDE (test code = 108 MMOL/L 98-107 H CL) CARBON DIOXIDE (test 29 MMOL/L 22-30 N code = CO2) ANION GAP (test code = 5 MMOL/L 14-24 L GAP) GLUCOSE (test code = 172 MG/DL 74-106 H GLU) BLOOD UREA NITROGEN 29 MG/DL 9-20 H (test code = BUN) GLOMERULAR FILTRATION 44 Report ing units: RATE (test code = GFR) ml/mi n/1.73 m2 (Modified MDRD Formula)Referen ce Range: > or = 6 0 ml/min/1.73 m2 CREATININE (test code 1.50 MG/DL 0.66-1.25 H = CREAT) CALCIUM (test code = 9.2 MG/DL 8.4-10.2 N CA) CBC W/AUTO [id number] 04:56:00 Test Item Value Reference Range Interpretation Comments WHITE BLOOD CELL (test code = 6.2 K/MM3 3.8-9.8 N WBC) RED BLOOD CELL (test code = 3.33 M/MM3 3.95-5.67 L RBC) HEMOGLOBIN (test code = HGB) 10.6 G/DL 12.4-16.7 L HEMATOCRIT (test code = HCT) 32.0 % 35.9-49.5 L MEAN CELL VOLUME (test code = 96 fL 81.7-96.1 N MCV) MEAN CELL HGB (test code = MCH) 31.8 pg 27.6-33.2 N MEAN CELL HGB CONCETRATION 33.1 % 32.9-35.5 N (test code = MCHC) RED CELL DISTRIBUTION WIDTH 15.4 % 12.1-15.2 H (test code = RDW) PLATELET COUNT (test code = 215 K/MM3 129-368 N PLT) MEAN PLATELET VOLUME (test code 9.7 fl 7.4-10.4 N = MPV) NEUTROPHIL % (test code = NT%) 61.1 % 43-75 N IMMATURE GRANULOCYTE % (test 0.3 % 0.0-2.0 N code = IG%) LYMPHOCYTE % (test code = LY%) 25.3 % 14-44 N MONOCYTE % (test code = MO%) 10.4 % 4-13 N EOSINOPHIL % (test code = EO%) 2.6 % 0-6 N BASOPHIL % (test code = BA%) 0.3 % 0-2 N NUCLEATED RBC % (test code = 0.0 % 0-1.0 N NRBC%) NEUTROPHIL # (test code = NT#) 3.77 K/mm3 2.0-7.6 N IMMATURE GRANULOCYTE # (test 0.02 x10 3/uL 0-0.03 N code = IG#) LYMPHOCYTE # (test code = LY#) 1.56 K/mm3 1.0-3.8 N MONOCYTE # (test code = MO#) 0.64 K/mm3 0.1-0.8 N EOSINOPHIL # (test code = EO#) 0.16 K/mm3 0.0-0.2 N BASOPHIL # (test code = BA#) 0.02 K/mm3 0.0-0.2 N NUCLEATED RBC # (test code = 0.00 K/mm3 0.0-0.1 N NRBC#) PROTHROMBIN [id number] 21:45:00 Test Item Value Reference Range Interpretation Comments PROTHROMBIN TIME 12.5 SECONDS 9.5-12.7 PATIENT (test code = PTP) INTERNATIONAL NORMAL 1.1 0.86-1.14 N The INR is to be RATIO (test code = used only for INR) monitoring oral anticoagulantth erap y. INDICATION I NR VALUE ---- ---- ---- -------1. Prophylaxis, de ep venous thrombos is, including high risk surgery. 2.0 - 3.0 2. Prophylaxis, deep venous thrombosis, hip surgery, treatm ent for deep venous thrombosis or pulmonary prevention of systemic emboli sm in patients wit h valvular heart disease, atrial fibrillation, tissue heart va lve, or acute myocar dial infarction. 2. 0 - 3.0 3. Parts Person al prosthesis hear t valves, recurre nt systemic emboli sm. 3.0 - 4.5 PTT [id number] 21:45:00 Test Item Value Reference Range Interpretation Comments PTT ACTIVATED (test code = APTT) 35.0 SECONDS 25.1-36.5 N COMPREHENSIVE METABOLIC [id number] 21:42:00 Test Item Value Reference Range Interpretation Comments SODIUM (test code 139 MMOL/L 137-145 N = NA) POTASSIUM (test 4.3 MMOL/L 3.5-5.1 N code = K) CHLORIDE (test 106 MMOL/L 98-107 N code = CL) CARBON DIOXIDE 29 MMOL/L 22-30 N (test code = CO2) ANION GAP (test 8 MMOL/L 14-24 L code = GAP) GLUCOSE (test 132 MG/DL 74-106 H code = GLU) BLOOD UREA 28 MG/DL 9-20 H NITROGEN (test code = BUN) GLOMERULAR 41 Reporting units : FILTRATION RATE ml/min/1.73 m2 (Modified (test code = GFR) MDRD Formu la)Reference Range: > or = 6 0 ml/min/1.73 m2 CREATININE (test 1.60 MG/DL 0.66-1.25 H code = CREAT) TOTAL PROTEIN 7.2 G/DL 6.2-7.6 N [facility] Clinical Diagnostic (test code = has made us yvette re of PROT) newinformation regarding the potential i nterference ofEltrombopag ( a bone marrow stimulan t used to treatthrombocyt onmenia and aplastic anemia ) with specific assays on the Vitros 5600 of which Total Protein is one of thoseassays per formed in our lab.Interfe rence testing perform ed at Ortho determined that Eltrombopag does interfere with Vitros Total Protein asfollowsEltrom bopag Interference fo r Vitros Product Total Protein:======= Eltrombopag Max Observed Av gabriel Tijerina on Concentration Concentration== ==== 2.5 mg/dl 6.0 g/dl +0.41 +0.34 3.5 mg/dl 6.0 g /dl +0.50 +0.45 5 mg/dl 6 .0 g/dl +0.73 +0.65 2.5 mg/dl 8.0 g/dl +0.44 +0.4 1 3.5 mg/dl 8.0 g/dl +0.55 +0.52 5 mg/dl 8.0 g/dl +0.86 +0.77 ALBUMIN (test 3.7 G/DL 3.5-5.0 N code = ALB) CALCIUM (test 9.9 MG/DL 8.4-10.2 N code = CA) BILIRUBIN TOTAL 1.0 MG/DL 0.2-1.3 N Eltrombopag Interference (test code = for Vitros Prod uct TBil, BILT) BuBc: Assa y Eltrombopag Regla lyte/ Max Observed Avg. B ias Concentration C oncentration Concentration== ====TBil 7mg/dl TBil/ 1. 2mg/dl +0.23mg.dl +0.2 0mg/dlBuBc 3.5mg/dl Bu/0.8 mg/dl +0.25mg/dl +0.2 4mg/dlBuBc 7 mg/dl Bu/14.2mg /dl +0.38mg/dl +0.2 5mg/dlBuBc 5mg/dl Bc/0mg/d l +0.25mg/dl +0.15mg/dlBuBc 3.5mg/dl Bc/2.8mg/dl +0. 25mg/dl +0.23mg/dl SGOT/AST (test 22 UNITS/L 17-59 N code = AST) SGPT/ALT (test 13 UNITS/L 0-49 N code = ALT) ALKALINE 84 UNITS/L 38-126 N PHOSPHATASE (test code = ALKP) CBC W/AUTO [id number] 21:08:00 Test Item Value Reference Range Interpretation Comments WHITE BLOOD CELL (test code = 6.9 K/MM3 3.8-9.8 N WBC) RED BLOOD CELL (test code = 3.72 M/MM3 3.95-5.67 L RBC) HEMOGLOBIN (test code = HGB) 11.8 G/DL 12.4-16.7 L HEMATOCRIT (test code = HCT) 36.2 % 35.9-49.5 N MEAN CELL VOLUME (test code = 97 fL 81.7-96.1 H MCV) MEAN CELL HGB (test code = MCH) 31.7 pg 27.6-33.2 N MEAN CELL HGB CONCETRATION 32.6 % 32.9-35.5 L (test code = MCHC) RED CELL DISTRIBUTION WIDTH 15.3 % 12.1-15.2 H (test code = RDW) PLATELET COUNT (test code = 242 K/MM3 129-368 N PLT) MEAN PLATELET VOLUME (test code 9.5 fl 7.4-10.4 N = MPV) NEUTROPHIL % (test code = NT%) 68.2 % 43-75 N IMMATURE GRANULOCYTE % (test 0.1 % 0.0-2.0 N code = IG%) LYMPHOCYTE % (test code = LY%) 20.2 % 14-44 N MONOCYTE % (test code = MO%) 9.2 % 4-13 N EOSINOPHIL % (test code = EO%) 1.9 % 0-6 N BASOPHIL % (test code = BA%) 0.4 % 0-2 N NUCLEATED RBC % (test code = 0.0 % 0-1.0 N NRBC%) NEUTROPHIL # (test code = NT#) 4.71 K/mm3 2.0-7.6 N IMMATURE GRANULOCYTE # (test 0.01 x10 3/uL 0-0.03 N code = IG#) LYMPHOCYTE # (test code = LY#) 1.40 K/mm3 1.0-3.8 N MONOCYTE # (test code = MO#) 0.64 K/mm3 0.1-0.8 N EOSINOPHIL # (test code = EO#) 0.13 K/mm3 0.0-0.2 N BASOPHIL # (test code = BA#) 0.03 K/mm3 0.0-0.2 N NUCLEATED RBC # (test code = 0.00 K/mm3 0.0-0.1 N NRBC#) GLUCOSE BEDSIDE [id number] 20:36:00 Test Item Value Reference Range Interpretation Comments GLUCOSE BEDSIDE TESTING (test code 119 MG/DL 60-99 H = GLUBED) Type and Screen - ONCE [id number] 17:50:28 Test Item Value Reference Range Interpretation Comments ABO & RH (test code A Positive Performe d at [facility] = 20) Laboratory Serv [facility] [address] [place], [place] [address]Toll Free: [phone] A No. [id number] IAT (test code = Negative Performed a t [facility] 1185) Laboratory Serv [facility] [address] [place], [place] [address]Toll Free: [phone] A No. [id number] [facility] ([id number])2021-04-02 17:40:08 Test Item Value Reference Range Interpretation Comments NA (test code = 139 mmol/L 135-145 0537672142) K (test code = 4.9 mmol/L 3.5-5.0 0392506826) CL (test code = 107 mmol/L 98-108 4619227316) CO2 TOTAL (test code = 27 mmol/L 23-31 1098476159) AGAP (test code = 2-16 1494745839) BUN (test code = 34 mg/dL 7-23 H 7011042972) GLUCOSE (test code = 187 mg/dL 70-110 H 3342581598) CREATININE (test code = 1.52 mg/dL 0.60-1.25 H 6613900668) TOTAL BILI (test code = 0.9 mg/dL 0.1-1.2 6061950360) CALCIUM (test code = 8.9 mg/dL 8.6-10.6 8945483338) T PROTEIN (test code = 6.3 g/dL 6.3-8.2 2203057622) ALBUMIN (test code = 3.6 g/dL 3.5-5.0 6889133659) ALK PHOS (test code = 82 U/L 34-122 7973966977) ALTv (test code = 13 U/L 5-50 2-6) AST(SGOT) (test code = 21 U/L 13-40 7526417056) eGFR (test code = mL/min/1.73m2 8535973975) ANURAG (test code = ANURAG) Association of Glomerular Filtration Rate (GFR) and Staging of Kidney Disease* + --+ --+ ------+| GFR (mL/min/1.73 m2) ?| With Kidney Damage ?| ?Without Kidney Damage+ --------+ --------+ +| ?>90 ?| ?Stage one ?| ? Normal ?+ ---+ ---+ -------+| ?60-89 ?| ?Stage two ?| ? Decreased GFR ? + --+ --+ ------+| ?30-59 ?| ?Stage three ?| ? Stage three ? + --+ --+ ------+| ?15-29 ?| ?Stage four ? | ? Stage four ?+ ---+ ---+ -------+| ?<15 (or dialysis) ? ?| ?Stage five ? | ? Stage five ?+ ---+ ---+ -------+ *Each stage assumes the associated GFR level has been in effect for at least three months. ?Stages 1 to 5, with or without kidney disease, indicate chronic kidney disease. Notes: Determination of stages one and two (with eGFR >59mL/min/1.73 m2) requires estimation of kidney damage for at least three months as defined by structural or functional abnormalities of the kidney, manifested by either:Pathological abnormalities or Markers of kidney damage (including abnormalities in the composition of the blood or urine or abnormalities in imaging tests). Lab Interpretation Abnormal (test code = 39086-5) [facility] System[facility] PART[facility] THRMPLAS [id number] 17:22:46 Test Item Value Reference Range Interpretation Comments APTT Patient (test See_Comment [Automat ed code = 3173-2) message] The system which generated this result transmitted reference range : 23 - 38 Seconds . The reference range was not used to interpr et this result as normal/abnormal . ANURAG (test code = ANURAG) The [facility] patient population mean normal value for aPTT is 30 seconds. Lab Interpretation Normal (test code = 51475-3) [facility] SystemPROT[facility]BIN TIME / [id number] 17:20:24 Test Item Value Reference Range Interpretation Comments PROTIME PATIENT (test See_Comment [Auto mated message] code = 5964-2) The system wh ich generated this result transmitted ref erence range: 12.0 - 1 4.7 Seconds. The re ference range was not u sed to interpret this result as normal/abnor mal. INR (test code = 6301-6) Nor mal INR <1.1; Warfarin Therap eutic range 2.0 to 3. 0 or 2.5 to 3.5, dep ending upon the indica tions. Lab Interpretation (test Normal code = 68844-3) [facility] System[facility] WITH [id number] 17:15:42 Test Item Value Reference Range Interpretation Comments WBC (test code = See_Comment [Automated 6690-2) message] The sy stem which generated this result transmitted reference range : 4.20 - 10.70 10*3/?L. The reference range was not used to interpret this result as normal/abnormal . RBC (test code = See_Comment L [Automated 789-8) message] The sy stem which generated this result transmitted reference range : 4.26 - 5.52 10*6/?L. The reference range was not used to interpret this result as normal/abnormal . HGB (test code = 11.2 g/dL 12.2-16.4 L 718-7) HCT (test code = 33.3 % 38.4-49.3 L 4544-3) MCV (test code = 94.9 fL 81.7-95.6 787-2) MCH (test code = 31.9 pg 26.1-32.7 785-6) MCHC (test code = 33.6 g/dL 31.2-35.0 786-4) RDW-SD (test code = 54.3 fL 38.5-51.6 H 63288-6) RDW-CV (test code = 15.7 % 12.1-15.4 H 788-0) PLT (test code = See_Comment [Automated 777-3) message] The sy stem which generated this result transmitted reference range : 150 - 328 10*3/ ?L. The reference r lori was not used to interpret this result as normal/abnormal . MPV (test code = 9.9 fL 9.8-13.0 51461-9) NRBC/100 WBC (test See_Comment [Automat ed code = 7651930149) message] The system which generated this result transmitted reference range : 0.0 - 10.0 /100 WBCs. The refer ence range was not u sed to interpret th is result as normal/abnormal . NRBC x10^3 (test code <0.01 See_Comment [Auto mated = 1349629381) message] The s ystem which generated this result transmitted reference range : 10*3/?L. The reference range was not used to interpret this result as normal/abnormal . GRAN MAT (NEUT) % 73.0 % (test code = 770-8) IMM GRAN % (test code 0.50 % = 0192027879) LYMPH % (test code = 17.0 % 736-9) MONO % (test code = 7.1 % 5905-5) EOS % (test code = 2.0 % 713-8) BASO % (test code = 0.4 % 706-2) GRAN MAT x10^3(ANC) 5.88 10*3/uL 1.99-6.95 (test code = 8497123976) IMM GRAN x10^3 (test 0.04 10*3/uL 0.00-0.06 code = 8729779411) LYMPH x10^3 (test code 1.37 10*3/uL 1.09-3.23 = 731-0) MONO x10^3 (test code 0.57 10*3/uL 0.36-1.02 = 742-7) EOS x10^3 (test code = 0.16 10*3/uL 0.06-0.53 711-2) BASO x10^3 (test code 0.03 10*3/uL 0.01-0.09 = 704-7) Lab Interpretation Abnormal (test code = 40454-8) [facility] [id number] 05:44:00 Test Item Value Reference Range Interpretation Comments SODIUM (test code = 140 MMOL/L 137-145 N NA) POTASSIUM (test code = 5.0 MMOL/L 3.5-5.1 N K) CHLORIDE (test code = 110 MMOL/L 98-107 H CL) CARBON DIOXIDE (test 26 MMOL/L 22-30 N code = CO2) GLUCOSE (test code = 188 MG/DL 74-106 H GLU) BLOOD UREA NITROGEN 39 MG/DL 9-20 H (test code = BUN) GLOMERULAR FILTRATION 36 Report ing units: RATE (test code = GFR) ml/mi n/1.73 m2 (Modified MDRD Formula)Referen ce Range: > or = 6 0 ml/min/1.73 m2 CREATININE (test code 1.80 MG/DL 0.66-1.25 H = CREAT) CALCIUM (test code = 9.0 MG/DL 8.4-10.2 N CA) CBC W/AUTO [id number] 05:17:00 Test Item Value Reference Range Interpretation Comments WHITE BLOOD CELL (test code = 8.6 K/MM3 3.8-9.8 N WBC) RED BLOOD CELL (test code = 3.60 M/MM3 3.95-5.67 L RBC) HEMOGLOBIN (test code = HGB) 11.4 G/DL 12.4-16.7 L HEMATOCRIT (test code = HCT) 35.2 % 35.9-49.5 L MEAN CELL VOLUME (test code = 98 fL 81.7-96.1 H MCV) MEAN CELL HGB (test code = MCH) 31.7 pg 27.6-33.2 N MEAN CELL HGB CONCETRATION 32.4 % 32.9-35.5 L (test code = MCHC) RED CELL DISTRIBUTION WIDTH 15.9 % 12.1-15.2 H (test code = RDW) PLATELET COUNT (test code = 222 K/MM3 129-368 N PLT) MEAN PLATELET VOLUME (test code 9.7 fl 7.4-10.4 N = MPV) NEUTROPHIL % (test code = NT%) 81.1 % 43-75 H IMMATURE GRANULOCYTE % (test 0.3 % 0.0-2.0 N code = IG%) LYMPHOCYTE % (test code = LY%) 11.9 % 14-44 L MONOCYTE % (test code = MO%) 6.6 % 4-13 N EOSINOPHIL % (test code = EO%) 0.0 % 0-6 N BASOPHIL % (test code = BA%) 0.1 % 0-2 N NUCLEATED RBC % (test code = 0.0 % 0-1.0 N NRBC%) NEUTROPHIL # (test code = NT#) 6.95 K/mm3 2.0-7.6 N IMMATURE GRANULOCYTE # (test 0.03 x10 3/uL 0-0.03 N code = IG#) LYMPHOCYTE # (test code = LY#) 1.02 K/mm3 1.0-3.8 N MONOCYTE # (test code = MO#) 0.57 K/mm3 0.1-0.8 N EOSINOPHIL # (test code = EO#) 0.00 K/mm3 0.0-0.2 N BASOPHIL # (test code = BA#) 0.01 K/mm3 0.0-0.2 N NUCLEATED RBC # (test code = 0.00 K/mm3 0.0-0.1 N NRBC#) [id number] 17:24:00 Test Item Value Reference Range Interpretation Comments ACT-ISTAT (test code = ACTI) 279 SEC 74-137 H [id number] 16:14:00 Test Item Value Reference Range Interpretation Comments ACT-ISTAT (test code = ACTI) 291 SEC 74-137 H [id number] 16:14:00 Test Item Value Reference Range Interpretation Comments ACT-ISTAT (test code = ACTI) 273 SEC 74-137 H BASIC METABOLIC [id number] 11:10:00 Test Item Value Reference Range Interpretation Comments SODIUM (test code = 143 MMOL/L 137-145 N NA) POTASSIUM (test code = 4.5 MMOL/L 3.5-5.1 N K) CHLORIDE (test code = 111 MMOL/L 98-107 H CL) CARBON DIOXIDE (test 27 MMOL/L 22-30 N code = CO2) GLUCOSE (test code = 177 MG/DL 74-106 H GLU) BLOOD UREA NITROGEN 41 MG/DL 9-20 H (test code = BUN) GLOMERULAR FILTRATION 34 Report ing units: RATE (test code = GFR) ml/mi n/1.73 m2 (Modified MDRD Formula)Referen ce Range: > or = 6 0 ml/min/1.73 m2 CREATININE (test code 1.90 MG/DL 0.66-1.25 H = CREAT) CALCIUM (test code = 9.4 MG/DL 8.4-10.2 N CA) COVID 19 Asymptomatic IH [id number] 14:45:00 Test Item Value Reference Range Interpretation Comments COVID 19 NEGATIVE Negative "Negative resul ts from Asymptomatic IH AG patients with symptom (test code = onset beyondfiv e days, COVNONPUIAG) should be treat ed as presumptive, andconfirmation with a molecular assay , if necessary forpa tient management may be performed. Nega tive results do notr ule out COVID-19 and sh ould not be used as the sole basisfor treatm ent or patient managem ent decisions, includinginfect ion control decisio ns. Negative result s should beconsidered in the context of a pa tients recent exposure s,history, and the presenc e of clinical signs and symptomsconsist ent with COVID-19.This t est detects both vi able andnon-viable S ARS-CoV and SARS CoV-2. Test performance dep endson the amount of virus (antigen) in the sample." [id number] 13:32:00 Test Item Value Reference Range Interpretation Comments MAGNESIUM (test code = MAG) 2.6 MG/DL 1.6-2.3 H BASIC METABOLIC [id number] 13:32:00 Test Item Value Reference Range Interpretation Comments SODIUM (test code = 142 MMOL/L 137-145 N NA) POTASSIUM (test code = 4.5 MMOL/L 3.5-5.1 N K) CHLORIDE (test code = 107 MMOL/L 98-107 N CL) CARBON DIOXIDE (test 25 MMOL/L 22-30 N code = CO2) ANION GAP (test code = 15 MMOL/L 14-24 N GAP) GLUCOSE (test code = 198 MG/DL 74-106 H GLU) BLOOD UREA NITROGEN 45 MG/DL 9-20 H (test code = BUN) GLOMERULAR FILTRATION 32 Report ing units: RATE (test code = GFR) ml/mi n/1.73 m2 (Modified MDRD Formula)Referen ce Range: > or = 6 0 ml/min/1.73 m2 CREATININE (test code 2.00 MG/DL 0.66-1.25 H = CREAT) CALCIUM (test code = 10.0 MG/DL 8.4-10.2 N CA) CBC W/AUTO [id number] 13:19:00 Test Item Value Reference Range Interpretation Comments WHITE BLOOD CELL (test code = 7.9 K/MM3 3.8-9.8 N WBC) RED BLOOD CELL (test code = 3.95 M/MM3 3.95-5.67 N RBC) HEMOGLOBIN (test code = HGB) 12.4 G/DL 12.4-16.7 N HEMATOCRIT (test code = HCT) 38.5 % 35.9-49.5 N MEAN CELL VOLUME (test code = 98 fL 81.7-96.1 H MCV) MEAN CELL HGB (test code = MCH) 31.4 pg 27.6-33.2 N MEAN CELL HGB CONCETRATION 32.2 % 32.9-35.5 L (test code = MCHC) RED CELL DISTRIBUTION WIDTH 15.3 % 12.1-15.2 H (test code = RDW) PLATELET COUNT (test code = 229 K/MM3 129-368 N PLT) MEAN PLATELET VOLUME (test code 10.2 fl 7.4-10.4 N = MPV) NEUTROPHIL % (test code = NT%) 69.1 % 43-75 N IMMATURE GRANULOCYTE % (test 0.3 % 0.0-2.0 N code = IG%) LYMPHOCYTE % (test code = LY%) 20.6 % 14-44 N MONOCYTE % (test code = MO%) 8.3 % 4-13 N EOSINOPHIL % (test code = EO%) 1.3 % 0-6 N BASOPHIL % (test code = BA%) 0.4 % 0-2 N NUCLEATED RBC % (test code = 0.0 % 0-1.0 N NRBC%) NEUTROPHIL # (test code = NT#) 5.44 K/mm3 2.0-7.6 N IMMATURE GRANULOCYTE # (test 0.02 x10 3/uL 0-0.03 N code = IG#) LYMPHOCYTE # (test code = LY#) 1.62 K/mm3 1.0-3.8 N MONOCYTE # (test code = MO#) 0.65 K/mm3 0.1-0.8 N EOSINOPHIL # (test code = EO#) 0.10 K/mm3 0.0-0.2 N BASOPHIL # (test code = BA#) 0.03 K/mm3 0.0-0.2 N NUCLEATED RBC # (test code = 0.00 K/mm3 0.0-0.1 N NRBC#) PROTHROMBIN [id number] 13:18:00 Test Item Value Reference Range Interpretation Comments PROTHROMBIN TIME 11.6 SECONDS 9.5-12.7 PATIENT (test code = PTP) INTERNATIONAL NORMAL 1.1 0.86-1.14 N The INR is to be RATIO (test code = used only for INR) monitoring oral anticoagulantth erap y. INDICATION I NR VALUE ---- ---- ---- -------1. Prophylaxis, de ep venous thrombos is, including high risk surgery. 2.0 - 3.0 2. Prophylaxis, deep venous thrombosis, hip surgery, treatm ent for deep venous thrombosis or pulmonary prevention of systemic emboli sm in patients wit h valvular heart disease, atrial fibrillation, tissue heart va lve, or acute myocar dial infarction. 2.0 - 3.0 3. Parts Person al prosthesis hear t valves, recurre nt systemic emboli sm. 3.0 - 4.5 PTT [id number] 13:18:00 Test Item Value Reference Range Interpretation Comments PTT ACTIVATED (test code = APTT) 36.8 SECONDS 25.1-36.5 H PROTHROMBIN [id number] 13:51:00 Test Item Value Reference Range Interpretation Comments PROTHROMBIN TIME 12.4 SECONDS 9.5-12.7 N PATIENT (test code = PTP) INTERNATIONAL NORMAL 1.1 0.86-1.14 N The INR is to be RATIO (test code = used only for INR) monitoring oral anticoagulantth erap y. INDICATION I NR VALUE ---- ---- ---- -------1. Prophylaxis, de ep venous thrombos is, including high risk surgery. 2.0 - 3.0 2. Prophylaxis, deep venous thrombosis, hip surgery, treatm ent for deep venous thrombosis or pulmonary prevention of systemic emboli sm in patients wit h valvular heart disease, atrial fibrillation, tissue heart va lve, or acute myocar dial infarction. 2.0 - 3.0 3. Parts Person al prosthesis hear t valves, recurre nt systemic emboli sm. 3.0 - 4.5 PTT [id number] 13:51:00 Test Item Value Reference Range Interpretation Comments PTT ACTIVATED (test code = APTT) 34.2 SECONDS 25.1-36.5 BASIC METABOLIC [id number] 13:36:00 Test Item Value Reference Range Interpretation Comments SODIUM (test code = 141 MMOL/L 137-145 N NA) POTASSIUM (test code = 4.3 MMOL/L 3.5-5.1 N K) CHLORIDE (test code = 105 MMOL/L 98-107 N CL) CARBON DIOXIDE (test 26 MMOL/L 22-30 N code = CO2) ANION GAP (test code = 14 MMOL/L 14-24 N GAP) GLUCOSE (test code = 140 MG/DL 74-106 H GLU) BLOOD UREA NITROGEN 30 MG/DL 9-20 H (test code = BUN) GLOMERULAR FILTRATION 36 Report ing units: RATE (test code = GFR) ml/mi n/1.73 m2 (Modified MDRD Formula)Referen ce Range: > or = 6 0 ml/min/1.73 m2 CREATININE (test code 1.80 MG/DL 0.66-1.25 H = CREAT) CALCIUM (test code = 9.9 MG/DL 8.4-10.2 N CA) Is this a LINE draw? [id number] 13:36:00 Test Item Value Reference Range Interpretation Comments MAGNESIUM (test code = MAG) 2.2 MG/DL 1.6-2.3 N Is this a LINE draw? NCBC W/AUTO [id number] 12:42:00 Test Item Value Reference Range Interpretation Comments WHITE BLOOD CELL (test code = 6.0 K/MM3 3.8-9.8 N WBC) RED BLOOD CELL (test code = 4.06 M/MM3 3.95-5.67 N RBC) HEMOGLOBIN (test code = HGB) 12.8 G/DL 12.4-16.7 N HEMATOCRIT (test code = HCT) 41.2 % 35.9-49.5 N MEAN CELL VOLUME (test code = 102 fL 81.7-96.1 H MCV) MEAN CELL HGB (test code = MCH) 31.5 pg 27.6-33.2 N MEAN CELL HGB CONCETRATION 31.1 % 32.9-35.5 L (test code = MCHC) RED CELL DISTRIBUTION WIDTH 16.1 % 12.1-15.2 H (test code = RDW) PLATELET COUNT (test code = 233 K/MM3 129-368 N PLT) MEAN PLATELET VOLUME (test code 9.5 fl 7.4-10.4 N = MPV) NEUTROPHIL % (test code = NT%) 59.9 % 43-75 N IMMATURE GRANULOCYTE % (test 0.2 % 0.0-2.0 N code = IG%) LYMPHOCYTE % (test code = LY%) 28.4 % 14-44 N MONOCYTE % (test code = MO%) 9.5 % 4-13 N EOSINOPHIL % (test code = EO%) 1.5 % 0-6 N BASOPHIL % (test code = BA%) 0.5 % 0-2 N NUCLEATED RBC % (test code = 0.0 % 0-1.0 N NRBC%) NEUTROPHIL # (test code = NT#) 3.62 K/mm3 2.0-7.6 N IMMATURE GRANULOCYTE # (test 0.01 x10 3/uL 0-0.03 N code = IG#) LYMPHOCYTE # (test code = LY#) 1.71 K/mm3 1.0-3.8 N MONOCYTE # (test code = MO#) 0.57 K/mm3 0.1-0.8 N EOSINOPHIL # (test code = EO#) 0.09 K/mm3 0.0-0.2 N BASOPHIL # (test code = BA#) 0.03 K/mm3 0.0-0.2 N NUCLEATED RBC # (test code = 0.00 K/mm3 0.0-0.1 N NRBC#) Is this a LINE draw? NCOVID 19 Asymptomatic IH [id number] 12:38:00 Test Item Value Reference Range Interpretation Comments COVID 19 NEGATIVE Negative "Negative resul ts from Asymptomatic IH AG patients with symptom (test code = onset beyondfiv e days, COVNONPUIAG) should be treat ed as presumptive, andconfirmation with a molecular assay , if necessary forpa tient management may be performed. Nega tive results do notr ule out COVID-19 and sh ould not be used as the sole basisfor treatm ent or patient managem ent decisions, includinginfect ion control decisio ns. Negative result s should beconsidered in the context of a pa tients recent exposure s,history, and the presenc e of clinical signs and symptomsconsist ent with COVID-19.This t est detects both vi able andnon-viable S ARS-CoV and SARS CoV-2. Test performance dep endson the amount of virus (antigen) in the sample." BASIC METABOLIC [id number] 07:51:00 Test Item Value Reference Range Interpretation Comments SODIUM (test code = 142 MMOL/L 137-145 N NA) POTASSIUM (test code = 4.5 MMOL/L 3.5-5.1 N K) CHLORIDE (test code = 108 MMOL/L 98-107 H CL) CARBON DIOXIDE (test 23 MMOL/L 22-30 N code = CO2) GLUCOSE (test code = 121 MG/DL 74-106 H GLU) BLOOD UREA NITROGEN 40 MG/DL 9-20 H (test code = BUN) GLOMERULAR FILTRATION 38 Report ing units: RATE (test code = GFR) ml/mi n/1.73 m2 (Modified MDRD Formula)Referen ce Range: > or = 6 0 ml/min/1.73 m2 CREATININE (test code 1.70 MG/DL 0.66-1.25 H = CREAT) CALCIUM (test code = 9.3 MG/DL 8.4-10.2 N CA) LIPID PROFILE (CORONARY RISK)2020-07-31 07:51:00 Test Item Value Reference Range Interpretation Comments TRIGLYCERIDES (test 150 MG/DL TRIGLYCE RIDES code = TRIG) REFERENCE RANGE:Normal: < 150 mg/dLBorderline High: 150-199 mg/dLHi gh: 200-499 mg/dLVe ry High: >=500 mg/ dL CHOLESTEROL (test code 137 MG/DL <200 = CHOL) HDL CHOLESTEROL (test 17 MG/DL 40-59 L code = HDL) LIPOPROTEIN LDL (test 93 MG/DL 0-99 N OPTIM AL.........<100 code = LDL) mg/dLNEAR OPTIMAL/ABOVE OPTIMAL........ .100-12 9 mg/dL BORDER LINE HIGH.........13 0-159 mg/dL HIGH.........16 0-189 mg/dL VERY HIGH.........>/ = 190 mg/dL [id number] 07:51:00 Test Item Value Reference Range Interpretation Comments MAGNESIUM (test code = MAG) 2.2 MG/DL 1.6-2.3 N CBC W/AUTO [id number] 07:44:00 Test Item Value Reference Range Interpretation Comments WHITE BLOOD CELL (test code = 5.6 K/MM3 3.8-9.8 N WBC) RED BLOOD CELL (test code = 3.45 M/MM3 3.95-5.67 L RBC) HEMOGLOBIN (test code = HGB) 11.5 G/DL 12.4-16.7 L HEMATOCRIT (test code = HCT) 35.8 % 35.9-49.5 L MEAN CELL VOLUME (test code = 104 fL 81.7-96.1 H MCV) MEAN CELL HGB (test code = MCH) 33.3 pg 27.6-33.2 H MEAN CELL HGB CONCETRATION 32.1 % 32.9-35.5 L (test code = MCHC) RED CELL DISTRIBUTION WIDTH 13.3 % 12.1-15.2 N (test code = RDW) PLATELET COUNT (test code = 183 K/MM3 129-368 N PLT) MEAN PLATELET VOLUME (test code 9.8 fl 7.4-10.4 N = MPV) NEUTROPHIL % (test code = NT%) 60.6 % 43-75 N IMMATURE GRANULOCYTE % (test 0.2 % 0.0-2.0 N code = IG%) LYMPHOCYTE % (test code = LY%) 23.3 % 14-44 N MONOCYTE % (test code = MO%) 11.3 % 4-13 N EOSINOPHIL % (test code = EO%) 3.9 % 0-6 N BASOPHIL % (test code = BA%) 0.7 % 0-2 N NUCLEATED RBC % (test code = 0.0 % 0-1.0 N NRBC%) NEUTROPHIL # (test code = NT#) 3.39 K/mm3 2.0-7.6 N IMMATURE GRANULOCYTE # (test 0.01 x10 3/uL 0-0.03 N code = IG#) LYMPHOCYTE # (test code = LY#) 1.30 K/mm3 1.0-3.8 N MONOCYTE # (test code = MO#) 0.63 K/mm3 0.1-0.8 N EOSINOPHIL # (test code = EO#) 0.22 K/mm3 0.0-0.2 H BASOPHIL # (test code = BA#) 0.04 K/mm3 0.0-0.2 N NUCLEATED RBC # (test code = 0.00 K/mm3 0.0-0.1 N NRBC#) PROTHROMBIN [id number] 07:43:00 Test Item Value Reference Range Interpretation Comments PROTHROMBIN TIME 12.2 SECONDS 9.5-12.7 N PATIENT (test code = PTP) INTERNATIONAL NORMAL 1.1 0.86-1.14 N The INR is to be RATIO (test code = used only for INR) monitoring oral anticoagulantth erap y. INDICATION I NR VALUE ---- ---- ---- -------1. Prophylaxis, de ep venous thrombos is, including high risk surgery. 2.0 - 3.0 2. Prophylaxis, deep venous thrombosis, hip surgery, treatm ent for deep venous thrombosis or pulmonary prevention of systemic emboli sm in patients wit h valvular heart disease, atrial fibrillation, tissue heart va lve, or acute myocar dial infarction. 2.0 - 3.0 3. Parts Person al prosthesis hear t valves, recurre nt systemic emboli sm. 3.0 - 4.5 Comments to Director Bioinformatics: RN TO COLLECTPTT [id number] 07:43:00 Test Item Value Reference Range Interpretation Comments PTT ACTIVATED (test code = APTT) 37.0 SECONDS 25.1-36.5 H Comments to Director Bioinformatics: RN TO COLLECTBASIC METABOLIC [id number] 07:41:00 Test Item Value Reference Range Interpretation Comments SODIUM (test code = 142 MMOL/L 137-145 N NA) POTASSIUM (test code = 4.5 MMOL/L 3.5-5.1 N K) CHLORIDE (test code = 108 MMOL/L 98-107 H CL) CARBON DIOXIDE (test 23 MMOL/L 22-30 N code = CO2) GLUCOSE (test code = 121 MG/DL 74-106 H GLU) BLOOD UREA NITROGEN 40 MG/DL 9-20 H (test code = BUN) GLOMERULAR FILTRATION 38 Report ing units: RATE (test code = GFR) ml/mi n/1.73 m2 (Modified MDRD Formula)Referen ce Range: > or = 6 0 ml/min/1.73 m2 CREATININE (test code 1.70 MG/DL 0.66-1.25 H = CREAT) CALCIUM (test code = 9.3 MG/DL 8.4-10.2 N CA) LIPID PROFILE (CORONARY RISK)[id number] 07:41:00 Test Item Value Reference Range Interpretation Comments TRIGLYCERIDES (test 150 MG/DL TRIGLYCE RIDES code = TRIG) REFERENCE RANGE:Normal: < 150 mg/dLBorderline High: 150-199 mg/dLHi gh: 200-499 mg/dLVe ry High: >=500 mg/ dL CHOLESTEROL (test code 137 MG/DL <200 = CHOL) HDL CHOLESTEROL (test 17 MG/DL 40-59 L code = HDL) LIPOPROTEIN LDL (test MG/DL 0-99 code = LDL) [id number] 07:41:00 Test Item Value Reference Range Interpretation Comments MAGNESIUM (test code = MAG) 2.2 MG/DL 1.6-2.3 N
[2022-11-28 15:56] VITALS: BMI 20.7
[2022-11-28] MEDS ORDERED: ACETAMINOPHEN 500 MG TAB PO PRN (16:35)
[2022-11-28] MEDS ORDERED: GLUCAGON 1 MG/VIAL IM PRN (16:46)
[2022-11-28] MEDS ORDERED: D10W 250 ML BAG IV PRN (16:54)
[2022-11-28 17:41] LABS: Urine Bacteria None Seen /HPF (<20); Urine Bilirubin NEGATIVE (Negative); Urine Blood Negative (Negative); Urine Clarity Clear (Clear); Urine Color Yellow (Yellow); Urine Glucose 2+ (Negative); Urine Protein NEGATIVE (Negative); Urine RBC <5 /HPF (None Seen); Urine Urobilinogen 2+ (Normal); Urine pH 5.5 (5.0-7.0)
[2022-11-28] MEDS: ATORVASTATIN 40 MG TAB PO SCH (19:33)
[2022-11-28] MEDS: APIXABAN 2.5 MG TABLET PO SCH (19:33)
[2022-11-28] MEDS: MIDODRINE HCL 5 MG TABLET PO SCH (19:39)
[2022-11-28] MEDS: MELATONIN 3 MG TABLET PO PRN (19:39)
[2022-11-28] MEDS: DORZOLAMIDE 2% OPTH SCH (19:45)
[2022-11-28] MEDS ORDERED: DORZOLAMIDE 2% OPTH SCH (20:00)
[2022-11-28] MEDS: INSULIN REGULAR (HUMAN) 100 UNIT/ML SQ SCH (21:00)
[2022-11-29 04:17] LABS: Absolute Lymphocytes (CBC) 1.3 K/uL (0.7-4.9); Hematocrit 31.2 % (39.6-49.0); Lymphocytes % 24.5 % (15.3-44.8); MPV 7.6 fL (7.6-11.3); Platelets 218 thou/uL (152-406); RBC Red Blood Cell Count 3.12 M/uL (4.33-5.43)
[2022-11-29 04:31] LABS: Albumin 2.6 g/dL (3.4-5.0); Magnesium 2.1 mg/dL (1.6-2.4); Potassium 4.4 mEq/L (3.5-5.1); Prealbumin 14.2 mg/dL (20-40)
[2022-11-29] MEDS ORDERED: LEVOTHYROXINE SOD 0.125 MG TAB PO SCH (06:30)
[2022-11-29] MEDS: LEVOTHYROXINE SOD 0.025 MG TAB PO SCH (06:40)
[2022-11-29] MEDS: LEVOTHYROXINE SOD 0.112 MG TAB PO SCH (06:40)
[2022-11-29] MEDS: INSULIN REGULAR (HUMAN) 100 UNIT/ML SQ SCH ×4 (06:49→19:38)
[2022-11-29] MEDS: APIXABAN 2.5 MG TABLET PO SCH ×2 (08:16→19:23)
[2022-11-29] MEDS: PIOGLITAZONE 15 MG TAB PO SCH (08:16)
[2022-11-29] MEDS: ASPIRIN EC 81 MG TAB PO SCH (08:16)
[2022-11-29] MEDS: DORZOLAMIDE 2% OPTH SCH ×2 (08:16→19:24)
[2022-11-29] MEDS: DIGOXIN 0.125 MG TABLET PO SCH (08:16)
[2022-11-29] MEDS: MIDODRINE HCL 5 MG TABLET PO SCH ×3 (08:16→19:23)
[2022-11-29] MEDS: MELATONIN 3 MG TABLET PO PRN (19:23)
[2022-11-29] MEDS: ATORVASTATIN 40 MG TAB PO SCH (19:23)
[2022-11-29] MEDS: GLUCERNA SHAKE 237 ML CAN PO SCH (19:38)
--- NOTE | 2022-11-29 23:49 | HP ---
Date of Admission: 11/28/2022 [id number] admission history and physical. Time Of Service: 12 noon. Chief Complaint: "I became weak and started falling." History Of Present Illness: Mr. Castellanos is an 87-year-old patient with multiple medical problems includ ing chronic anemia, atrial fibrillation, diabetes mellitus, diabetic neuropathy, dyslipidemia, hypert ension, obstructive sleep apnea, he has 4 vessel cardiac bypass grafting and pacemaker, who began fal ling at home multiple times. He had a fall last Sunday and his daughter brought him to his physician 's appointment where he was noted to be blacking out and would become rigid prior to his falls and co llapse. He was taken to the [facility] Emergency Department on 11/19, where CT scan of the head s howed no significant abnormalities. His spine CT scan showed L2 transverse fracture and he was sent to [facility] in [place] for higher level of care. Neurosurgical evaluation and consultation recommended conservative treatment of the fracture. Furthermore, it was determined that the crash fracture appe ared to be more chronic than acute. Carotid ultrasound showed mild internal carotid artery disease b ilaterally. Transthoracic echocardiogram showed 60-65 percent ejection fraction. There was mild aor tic valve regurgitation and moderate to severe aortic stenosis. His pacemaker was determined to be f unctioning properly. However, the patient did have significant orthostatic findings on his blood pre ssure testing and was given a saline bolus and the patient's family admit to poor oral intake and jesi f-care. He was started on the thiamine, his thiamine levels were found to be low. Hemoglobin was in fairly good level of 11.5. He also had elevated blood sugars, which required evaluation and managem ent and an elevated creatinine of 1.56 consistent with his dehydration. He was somewhat disoriented, confused and likely due to multiple factors including electrolyte abnormalities, renal insufficiency and the recent falls, despite no findings on CT scan of head injury. Prior to this, he was function ing very well, but did have a significant decline in mobility. The etiology, although unclear, may b e related to autonomic dysfunction secondary to his diabetes mellitus with diabetic peripheral neurop athy. As a result of his new level of functioning, he now requires moderate assistance for bed mobil ization, transfers, ambulating, dressing upper and lower body and getting on and off a toilet, perfor vin a shower, toileting and mobilizing even household distances. As a result, he is determined to b e an appropriate candidate for inpatient rehabilitation, is admitted to the rehabilitation unit for p hysical, occupational, speech therapy. Past Medical History: Anemia, arthritis, atrial fibrillation, colon polyps, diabetes mellitus, diabe tic peripheral neuropathy, diverticulitis, dyslipidemia, hypertension, hypothyroidism, obstructive sl eep apnea. Past Surgical History: Coronary artery bypass grafting x4, pacemaker placement, colonoscopy 2000, ga stroesophageal duodenoscopy 09/2020, and cardiac pacemaker placement. Allergies: PENICILLIN. Imaging: Head CT scan and thoracic and cervical spine CT scan without contrast showed no acute intra cranial abnormalities. The L1 vertebral compression fracture potentially subacute with a 44% vertebr al body height loss. There is also mildly displaced left L1 transverse process fracture and no acute fractures or malignant appearance of the fractures. Medications: Aspirin 500 mg every 6 hours as needed, Eliquis 2.5 mg twice daily, aspirin 81 mg daily , Lipitor 40 mg at bedtime, Lanoxin 0.125 mg daily, Glucerna shake 237 mL twice daily, insulin slidin g scale, levothyroxine 0.137 mg daily, melatonin 3 at bedtime, midodrine 5 mg 3 times daily, and Acto s 15 mg daily. Family History: Noncontributory. Laboratory Studies: White blood cell count 5.5, hemoglobin 10.7, platelets 218. Sodium 140, potassi um 4.4, chloride 111, carbon dioxide 29, BUN 43, creatinine 2.05, glucose ranged from 141-185, calciu m 8.3, magnesium 2.1, prealbumin 14.2, and albumin . Urinalysis; 2+ urobilinogen, 2+ gluco se, otherwise unremarkable. Social History: Patient lives with family, single-story home. No alcohol, tobacco, or IV drug use. Review of Systems: He denies any significant fevers, any chills. There is chronic low back pain noted where his kaya megan fracture is, but that is improving. Otherwise, no fevers, chills. There are again myalgias and arthralgias. No rash. No active psychiatric issues. There was some difficulty with urination and bowel movements. Otherwise, no positives on the systems review. Physical Examination: Vital Signs: Blood pressure 125/59, pulse 64, that is lying down, when standing up, blood pressure 9 9/55, pulse of 97, patient is mildly symptomatic. Respiratory rate 16, temperature 97.2, oxygen satu ration 97%, weight 149 pounds, height 5 feet 11 inches, BMI 20.8. General: Mr. Squires is resting comfortably in bed, waiting for the next therapy session. HEENT: He appears normocephalic, atraumatic. Sclerae anicteric. Oropharynx is pink and moist. Neck: Supple. Chest: Clear. Heart: Irregularly irregular. Extremities: Show trace edema. Otherwise, no cyanosis or clubbing. Neurological: Diffusely weak, upper and lower extremities. No focal deficits. Stocking-glove loss to light touch and temperature, depressed reflexes, coordination slow and intact. Current Functional Status: Setup assistance for eating, oral hygiene. Moderate assistance for toile ting, maximum for bathing. Moderate assistance for upper body dressing. Maximal assistance for lowe r body dressing, donning and doffing foot wear as well. For rolling right to left, left to right, mo derate assistance. Sitting to stand, contact guard assistance. Sliding in bed, moderate assistance. Contact guard assistance for again [id number], transfers from [id number], moderate assistance, toilet transfer and ambulation, walk with a rolling walker, moderate assistance, he walked 5 feet. Rehabilitation And Medical Assessment And Plan: Mr. Castellanos is an 87-year-old patient admitted to the ehabilitation unit with an impairment category of 20, miscellaneous. His impairment group code is de bility at 16, as debility, noncardiac, nonpulmonary. Etiologic Diagnosis: Autonomic dysfunction. 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 Plan: 1.He will have physical, occupational, and speech therapy for 3.5 hours, 5 of 7 days. 2.He will have continuing medications for comorbid conditions including Tylenol for pain, Eliquis fo r stroke and DVT risk reduction, Lipitor 40 mg at bedtime for dyslipidemia, Lanoxin for heart rate co ntrol for his atrial fibrillation, Synthroid for hypothyroidism, melatonin for insomnia, midodrine fo r autonomic dysfunction. Impact Of Comorbidities: Mr. Castellanos does have history with atrial fibrillation and is at risk for stro ke. He is on Eliquis. Also, we will help reduce risk of deep vein thrombosis. He does have an L1 c ompression fracture with loss of height around 44%. There is chronic pain related to that. Pain pat ch will be applied. Gabapentin will be used if need be and limited or judicious use of narcotic medi cations as appropriate. Rehab Specific Plan: Mr. Castellanos will have 3.5 hours, 5 of 7 days of physical, occupational, speech the rapy to improve his upper and lower body dressing, transferring, toileting, showering, ambulation ove r household distances, up and down 5 steps and performing cognitive functioning independently. He wi ll also have halfway 24 hours a day and physician evaluation and management daily. Mr. Castellanos has a good understanding of the process of admission to the inpatient rehabilitation facilit y and how he may benefit from all 3 disciplines. If need be, services from the Nutrition Service, th e Renal Service and the Orthopedic Service may be consulted. Given his complex medical condition and risk of further complications, rehabilitation cannot be safely or effectively performed at a lower l evel of care such as halfway. Barriers To Discharge: Currently, the lumbar compression fracture, which has been present for more e xtended period of time, could be a barrier, can be contributing to his pain. In addition, the autono mari dysfunction puts him at risk of falling suddenly. He will have an abdominal binder and BHAVANA hose in place along with midodrine and potentially Florinef administered. Estimated Length Of Stay: About 12 days. Disposition: Home with family. Prognosis: Good. Rehab Goals: 1.He will be independent with upper and lower body dressing, transferring, toileting. 2.Independent with ambulating 250 feet. 3.Independently going up and down 10 steps. 4.Independently performing his cognitive functioning. 5.All comorbid condition will be effectively and judiciously managed. The above goals were reviewed with Mr. Castellanos and family and they are in agreement. By signing this document, I acknowledge I personally performed a full physical examination on Mr. Kir k no later than 24 hours after his admission to the inpatient rehabilitation facility and determined that he is able to tolerate the above course of treatment at an intensive level for a reasonable phillip od of time. A detailed individualized plan of care for him will be completed by hospital day 4 based on the preadmission screen, history and physical and therapy evaluations. DEIRDRE Voice ID: [id number]
[2022-11-30] MEDS: INSULIN REGULAR (HUMAN) 100 UNIT/ML SQ SCH ×4 (06:43→19:44)
[2022-11-30] MEDS: LEVOTHYROXINE SOD 0.025 MG TAB PO SCH (06:45)
[2022-11-30] MEDS: LEVOTHYROXINE SOD 0.112 MG TAB PO SCH (06:45)
[2022-11-30] MEDS: DORZOLAMIDE 2% OPTH SCH ×2 (06:58→19:35)
[2022-11-30] MEDS: APIXABAN 2.5 MG TABLET PO SCH ×2 (07:32→19:35)
[2022-11-30] MEDS: PIOGLITAZONE 15 MG TAB PO SCH (07:33)
[2022-11-30] MEDS: ASPIRIN EC 81 MG TAB PO SCH (07:33)
[2022-11-30] MEDS: MIDODRINE HCL 5 MG TABLET PO SCH ×3 (07:33→19:35)
[2022-11-30] MEDS: DIGOXIN 0.125 MG TABLET PO SCH (07:33)
[2022-11-30] MEDS: GLUCERNA SHAKE 237 ML CAN PO SCH ×2 (08:15→19:35)
[2022-11-30] MEDS: MELATONIN 3 MG TABLET PO PRN (19:35)
[2022-11-30] MEDS: ATORVASTATIN 40 MG TAB PO SCH (19:35)
[2022-12-01] MEDS: INSULIN REGULAR (HUMAN) 100 UNIT/ML SQ SCH ×4 (06:22→19:55)
[2022-12-01] MEDS: LEVOTHYROXINE SOD 0.112 MG TAB PO SCH (06:25)
[2022-12-01] MEDS: LEVOTHYROXINE SOD 0.025 MG TAB PO SCH (06:25)
[2022-12-01] MEDS: DORZOLAMIDE 2% OPTH SCH ×2 (06:34→19:21)
[2022-12-01] MEDS: ASPIRIN EC 81 MG TAB PO SCH (08:30)
[2022-12-01] MEDS: GLUCERNA SHAKE 237 ML CAN PO SCH ×2 (08:30→19:21)
[2022-12-01] MEDS: PIOGLITAZONE 15 MG TAB PO SCH (08:31)
[2022-12-01] MEDS: MIDODRINE HCL 5 MG TABLET PO SCH ×3 (08:31→19:21)
[2022-12-01] MEDS: APIXABAN 2.5 MG TABLET PO SCH ×2 (08:31→19:21)
[2022-12-01] MEDS: DIGOXIN 0.125 MG TABLET PO SCH (08:31)
--- NOTE | 2022-12-01 14:05 | P.RH.PN ---
Estimated Length of Stay: 11 Expected Discharge Date: 12/08/22 Discharge Disposition Plan: Home Family Support: Yes Half-Way Goal: Mobility, Transfers, Self Care Vital Signs: Last Vital Signs Temp 97.0 F 12/01/22 08:00 Pulse 61 12/01/22 08:00 Resp 16 12/01/22 08:00 BP 129/62 12/01/22 08:00 Pulse Ox 96 12/01/22 08:00 Laboratory: Laboratory Last Values WBC 5.50 thou/uL (4.3-10.9) 11/29/22 03:40 RBC 3.12 M/uL (4.33-5.43) L 11/29/22 03:40 Hgb 10.7 g/dL (13.6-17.9) L 11/29/22 03:40 Hct 31.2 % (39.6-49.0) L 11/29/22 03:40 MCV 100.0 fL (80-100) 11/29/22 03:40 MCH 34.3 pg (27.0-35.0) 11/29/22 03:40 MCHC 34.3 g/dL (32.0-36.0) 11/29/22 03:40 RDW 14.6 % (12.1-15.2) 11/29/22 03:40 Plt Count 218 thou/uL (152-406) 11/29/22 03:40 MPV 7.6 fL (7.6-11.3) 11/29/22 03:40 Neutrophils % 58.7 % (41.7-73.7) 11/29/22 03:40 Lymphocytes % 24.5 % (15.3-44.8) 11/29/22 03:40 Monocytes % 12.7 % (3.3-12.3) H 11/29/22 03:40 Eosinophils % 3.6 % (0-4.4) 11/29/22 03:40 Basophils % 0.5 % (0-1.3) 11/29/22 03:40 Absolute Neutrophils 3.2 K/uL (1.8-8.0) 11/29/22 03:40 Absolute Lymphocytes 1.3 K/uL (0.7-4.9) 11/29/22 03:40 Absolute Monocytes 0.7 K/uL (0.1-1.3) 11/29/22 03:40 Absolute Eosinophils 0.2 K/uL (0-0.5) 11/29/22 03:40 Absolute Basophils 0.0 K/uL (0-0.5) 11/29/22 03:40 Sodium 140 mEq/L (136-145) 11/29/22 03:40 Potassium 4.4 mEq/L (3.5-5.1) 11/29/22 03:40 Chloride 111 mEq/L (98-107) H 11/29/22 03:40 Carbon Dioxide 29 mEq/L (21-32) 11/29/22 03:40 Anion Gap 4.4 mEq/L (5.0-15.0) L 11/29/22 03:40 BUN 43 mg/dL (7-18) H 11/29/22 03:40 Creatinine 2.05 mg/dL (0.70-1.30) H 11/29/22 03:40 Est GFR (CKD-EPI) 31 ml/min (=/>90) L 11/29/22 03:40 Glucose 157 mg/dL (74-106) H 11/29/22 03:40 POC Glucose 190 mg/dL (65-120) H 12/01/22 11:36 Calcium 8.3 mg/dL (8.5-10.1) L 11/29/22 03:40 Magnesium 2.1 mg/dL (1.6-2.4) 11/29/22 03:40 Albumin 2.6 g/dL (3.4-5.0) L 11/29/22 03:40 Prealbumin 14.2 mg/dL (20-40) L 11/29/22 03:40 Urine Color Yellow (Yellow) 11/28/22 16:25 Urine Clarity Clear (Clear) 11/28/22 16:25 Urine pH 5.5 (5.0-7.0) 11/28/22 16:25 Ur Specific [place] 1.020 (1.005-1.030) 11/28/22 16:25 Glucose (UA)(Auto) 2+ (Negative) H 11/28/22 16:25 Urine Ketones Negative (Negative) 11/28/22 16:25 Urine Blood Negative (Negative) 11/28/22 16:25 Urine Nitrite Negative (Negative) 11/28/22 16:25 Urine Bilirubin Negative (Negative) 11/28/22 16:25 Urine Urobilinogen 2+ (Normal) H 11/28/22 16:25 Ur Leukocyte Esterase Negative Lizeth/uL (Negative) 11/28/22 16:25 Urine RBC <5 /HPF (None Seen) 11/28/22 16:25 Urine WBC <5 /HPF (<5) 11/28/22 16:25 Ur Squamous Epith Cells None seen /HPF (None Seen) 11/28/22 16:25 U Non-Squamous Epi Cells <5 /HPF (None Seen) 11/28/22 16:25 Urine Bacteria None seen /HPF (<20) 11/28/22 16:25 Urine Culture Reflexed Not needed 11/28/22 16:25 Urine Total Protein Negative (Negative) 11/28/22 16:25 Weight: 149 lb Wound Present: No Closed Surgical Incision Present: No Negative Pressure Wound Therapy Present: No Physician Update: Labs reviewed and are stable with elevated Probate Judge. Poor hearin, helped by hearing aids. Walking 650' with SBA, wheelchair 250', 25 steps with SBA. Min assist for toileting. Very positive from 124/56 sitting to 80/48 after one minute of standing. He did better after about 5 minutes of standing. Summary: Patient's care plan and assisted goals have been reviewed and revised as necessary. Please see the Rehabilitation Signature page for all necessary signatures.
[2022-12-01] MEDS: MELATONIN 3 MG TABLET PO PRN (19:21)
[2022-12-01] MEDS: ATORVASTATIN 40 MG TAB PO SCH (19:21)
[2022-12-02] MEDS: INSULIN REGULAR (HUMAN) 100 UNIT/ML SQ SCH ×4 (06:31→20:39)
[2022-12-02] MEDS: LEVOTHYROXINE SOD 0.112 MG TAB PO SCH (06:34)
[2022-12-02] MEDS: LEVOTHYROXINE SOD 0.025 MG TAB PO SCH (06:34)
[2022-12-02] MEDS: DORZOLAMIDE 2% OPTH SCH ×2 (06:34→20:25)
[2022-12-02] MEDS: DIGOXIN 0.125 MG TABLET PO SCH (08:03)
[2022-12-02] MEDS: MIDODRINE HCL 5 MG TABLET PO SCH ×3 (08:03→20:25)
[2022-12-02] MEDS: APIXABAN 2.5 MG TABLET PO SCH ×2 (08:03→20:26)
[2022-12-02] MEDS: PIOGLITAZONE 15 MG TAB PO SCH (08:03)
[2022-12-02] MEDS: ASPIRIN EC 81 MG TAB PO SCH (08:03)
[2022-12-02] MEDS: GLUCERNA SHAKE 237 ML CAN PO SCH ×2 (08:04→20:26)
[2022-12-02 08:21] LABS: Absolute Lymphocytes (CBC) 1.6 K/uL (0.7-4.9); Hematocrit 32.3 % (39.6-49.0); Lymphocytes % 27.8 % (15.3-44.8); MCV 99.4 fL (80-100); MPV 7.4 fL (7.6-11.3); Platelets 256 thou/uL (152-406); RBC Red Blood Cell Count 3.25 M/uL (4.33-5.43)
[2022-12-02 08:32] LABS: Potassium 4.4 mEq/L (3.5-5.1)
[2022-12-02] MEDS: ATORVASTATIN 40 MG TAB PO SCH (20:25)
[2022-12-02] MEDS: MELATONIN 3 MG TABLET PO PRN (20:26)
[2022-12-02] MEDS ORDERED: INSULIN REGULAR (HUMAN) 100 UNIT/ML ONE (20:50)
[2022-12-03] MEDS: LEVOTHYROXINE SOD 0.025 MG TAB PO SCH (06:37)
[2022-12-03] MEDS: LEVOTHYROXINE SOD 0.112 MG TAB PO SCH (06:37)
[2022-12-03] MEDS: INSULIN REGULAR (HUMAN) 100 UNIT/ML SQ SCH ×4 (07:30→19:38)
[2022-12-03] MEDS: GLUCERNA SHAKE 237 ML CAN PO SCH ×2 (08:24→19:40)
[2022-12-03] MEDS: APIXABAN 2.5 MG TABLET PO SCH ×2 (08:25→19:38)
[2022-12-03] MEDS: PIOGLITAZONE 15 MG TAB PO SCH (08:25)
[2022-12-03] MEDS: ASPIRIN EC 81 MG TAB PO SCH (08:25)
[2022-12-03] MEDS: DORZOLAMIDE 2% OPTH SCH ×2 (08:25→19:38)
[2022-12-03] MEDS: DIGOXIN 0.125 MG TABLET PO SCH (08:25)
[2022-12-03] MEDS: MIDODRINE HCL 5 MG TABLET PO SCH ×3 (08:25→19:38)
[2022-12-03] MEDS: ATORVASTATIN 40 MG TAB PO SCH (19:38)
[2022-12-03] MEDS: MELATONIN 3 MG TABLET PO PRN (19:39)
[2022-12-04] MEDS: LEVOTHYROXINE SOD 0.025 MG TAB PO SCH (06:32)
[2022-12-04] MEDS: LEVOTHYROXINE SOD 0.112 MG TAB PO SCH (06:32)
[2022-12-04] MEDS: INSULIN REGULAR (HUMAN) 100 UNIT/ML SQ SCH ×4 (07:12→19:45)
[2022-12-04] MEDS: ASPIRIN EC 81 MG TAB PO SCH (08:19)
[2022-12-04] MEDS: DIGOXIN 0.125 MG TABLET PO SCH (08:19)
[2022-12-04] MEDS: APIXABAN 2.5 MG TABLET PO SCH ×2 (08:19→19:57)
[2022-12-04] MEDS: MIDODRINE HCL 5 MG TABLET PO SCH ×4 (08:20→20:29)
[2022-12-04] MEDS: PIOGLITAZONE 15 MG TAB PO SCH (08:20)
[2022-12-04] MEDS: DORZOLAMIDE 2% OPTH SCH ×2 (08:20→19:57)
[2022-12-04] MEDS: GLUCERNA SHAKE 237 ML CAN PO SCH ×2 (08:20→19:58)
[2022-12-04] MEDS: MELATONIN 3 MG TABLET PO PRN (19:57)
[2022-12-04] MEDS: ATORVASTATIN 40 MG TAB PO SCH (19:57)
--- NOTE | 2022-12-04 21:54 | PN ---
Date of Progress Note: 12/04/2022 Time Of Service: 1 p.m. Subjective: Mr. Castellanos is resting comfortably in bed. He is in no acute distress, sclerae anicteric. Oropharynx is moist and pink. His neck is supple. Chest clear. Heart is regular. He ambulated well and did not have significant autonomic dysfunction after about a few minutes of standing. He again denies fevers, chills, nausea, vomiting, myalgias, arthralgias. Physical Examination: Vital Signs: Blood pressure 136/63, pulse of 73, when standing transiently blood pressure dropped to 93/48, pulse of 90. He was transiently symptomatic but then did very well. He has no focal neurological deficits, just diffuse weakness in the upper and lower extremities. Laboratory Studies: Today blood sugars ranged from 164-175. X-ray/imaging: No new x-rays or imaging. Medications: Tylenol 500 mg every 6 hours as needed, Eliquis 2.5 mg twice daily, aspirin 81 mg daily, Lipitor 40 mg at bedtime, digoxin 0.125 mg daily, Glucerna shake 237 mL twice daily, Synthroid 0.112 mg daily plus 0.025 mg daily, melatonin 3 mg at bedtime, midodrine 5 mg 3 times daily Actos 15 mg daily with breakfast. Current Functional Status: Today, with occupational therapy, shower transfer was independent, bathing independent, upper and lower body dressing independent, grooming was independent. With Physical therapy, he was contact guard assistance with a rolling walker covering 250 feet, 500 feet, and 750 feet. He ascended and descended 15 steps with standby assistance and mobilized wheelchair 150 feet and 250 feet independently. Progress Towards Rehabilitation Goals: Mr. Castellanos is making excellent progress towards his goals of becoming independent with upper and lower body dressing, transferring, toileting, showering, ambulating 500 feet to 750 feet independently, going up and down 5 steps independently, and mobilizing a wheelchair independently 250 feet and continuing to perform cognitive functioning independently. Assessment And Plan: Mr. Castellanos is an 87-year-old patient in the rehabilitation unit with autonomic dysfunction, likely secondary to multiple factors including diabetes mellitus. He is doing excellent with physical and occupational therapy and will likely become fully independent prior to his discharge. He has comorbid atrial fibrillation, constipation, anemia, diabetes mellitus, diabetic peripheral neuropathy with his autonomic dysfunction, hypertension, hypothyroidism, malnutrition, obstructive sleep apnea fall with L2 spinal fracture, and stage 2-3 renal insufficiency. Plan: 1. Continue physical and occupational therapy for 3 hours a day, 5 of 7 days a week. 2. His comorbid conditions are stably managed. He will be addressed by continuing his current list of medications, which are noted above. Comorbidities That Continue To Impact Rehabilitation: Currently significant orthostatic changes with due to his autonomic dysfunction is his biggest issue. However, if he is up for less than 3 minutes and is able to sit and wait while getting up, he typically can ambulate well without evidence of a drop in blood pressure or symptomatic orthostatic hypotension. CHELA/ANA MARÍA Voice ID: [id number] Report ID: [id number] AN
[2022-12-05] MEDS: LEVOTHYROXINE SOD 0.025 MG TAB PO SCH (05:20)
[2022-12-05] MEDS: LEVOTHYROXINE SOD 0.112 MG TAB PO SCH (05:20)
[2022-12-05] MEDS: INSULIN REGULAR (HUMAN) 100 UNIT/ML SQ SCH ×4 (07:11→20:00)
[2022-12-05] MEDS: MIDODRINE HCL 5 MG TABLET PO SCH ×3 (07:13→20:01)
[2022-12-05] MEDS: PIOGLITAZONE 15 MG TAB PO SCH (07:13)
[2022-12-05] MEDS: DORZOLAMIDE 2% OPTH SCH ×2 (07:13→20:01)
[2022-12-05] MEDS: ASPIRIN EC 81 MG TAB PO SCH (07:13)
[2022-12-05] MEDS: DIGOXIN 0.125 MG TABLET PO SCH (07:13)
[2022-12-05] MEDS: APIXABAN 2.5 MG TABLET PO SCH ×2 (07:13→20:01)
[2022-12-05] MEDS: GLUCERNA SHAKE 237 ML CAN PO SCH ×2 (07:14→20:01)
[2022-12-05] MEDS: MELATONIN 3 MG TABLET PO PRN (20:01)
[2022-12-05] MEDS: ATORVASTATIN 40 MG TAB PO SCH (20:01)
--- NOTE | 2022-12-05 23:42 | PN ---
Date of Progress Note: 12/05/2022 Time Of Service: 1:50 p.m. Subjective: Mr. Castellanos is resting well in his room. He is very happy with therapy so far and was just walking, covered 500 feet without stopping. He denied any significant sensation of blacking out or passing out, although when he first woke up this morning he did have some transient orthostatic sympt oms. Review of Systems: No fevers, chills, nausea, vomiting, myalgias, arthralgias, rash, headache, weight change. Physical Examination: Vital Signs: Blood pressure 146/67, pulse of 63 while lying and standing 132/63, pulse 83. He was a symptomatic. Otherwise, the patient has no focal neurologic deficits in upper or lower extremities. Chest: Good air movement. Abdomen: Soft. Extremities: Show no significant edema, cyanosis, or clubbing. Laboratory Studies: Blood sugars ranged from 137 to 218. X-ray/imaging: No new x-rays or imaging. Medications: Medications have been reviewed and remain unchanged. He continues with Eliquis for DVT prophylaxis, digoxin for heart rate control, Synthroid for hypothyroidism, midodrine for blood press ure support along with other comorbid condition medications. Current Functional Status: With occupational therapy, he did bilateral lower extremity standing zeke nce exercises, did 20 sets. He was independent moving the wheelchair from the gym to his room. With physical therapy, he completed 500 feet, 1000 feet, and 350 feet with standby assistance using a Docebo walker. He ascended and descended 15 steps with bilateral handrails independently. He mobilize d a wheelchair 250 feet and 150 feet independently. Progress Towards Rehabilitation Goals: Mr. Castellanos is making excellent progress towards his goals of be coming independent with upper body dressing, toileting, showering, ambulating about 1000 feet indepen dently, up and down 15 steps independently, and mobilizing a wheelchair 250 feet independently. He d oes have very good control of the autonomic dysfunction now with no orthostasis with his last orthost atic blood check and he was asymptomatic. Assessment: Mr. Castellanos is an 87-year-old patient in the rehabilitation unit with autonomic dysfunction , possibly related to multiple factors including diabetes mellitus. He is doing very, very well with his therapy and he is independent and will be discharged very soon. He does have comorbid diabetes mellitus, diabetic peripheral neuropathy, constipation, atrial fibrillation, hypothyroidism, malnutri tion, obstructive sleep apnea, and an L2 fracture with stage 2-3 renal insufficiency. Plan: 1.Continue with physical, occupational therapy for 3 hours, 5 of 7 days .. 2.His comorbid conditions as outlined above are continued to be managed by his current medications a nd he is doing very well. Comorbidities That Continue To Impact Rehabilitation Process: Patient's comorbidities are stably man aged and do not negatively impact his rehabilitation as blood pressure drops have not occurred recent ly and he is doing very well. CHELA/ANA MARÍA Voice ID: [id number] Report ID: [id number]
[2022-12-06] MEDS: LEVOTHYROXINE SOD 0.112 MG TAB PO SCH (05:17)
[2022-12-06] MEDS: LEVOTHYROXINE SOD 0.025 MG TAB PO SCH (05:18)
[2022-12-06] MEDS: INSULIN REGULAR (HUMAN) 100 UNIT/ML SQ SCH ×4 (07:26→19:56)
[2022-12-06] MEDS: DORZOLAMIDE 2% OPTH SCH ×2 (07:27→19:49)
[2022-12-06] MEDS: DIGOXIN 0.125 MG TABLET PO SCH (07:27)
[2022-12-06] MEDS: PIOGLITAZONE 15 MG TAB PO SCH (07:27)
[2022-12-06] MEDS: MIDODRINE HCL 5 MG TABLET PO SCH ×3 (07:27→19:50)
[2022-12-06] MEDS: ASPIRIN EC 81 MG TAB PO SCH (07:27)
[2022-12-06] MEDS: APIXABAN 2.5 MG TABLET PO SCH ×2 (07:27→19:49)
[2022-12-06] MEDS: GLUCERNA SHAKE 237 ML CAN PO SCH ×2 (07:28→19:50)
[2022-12-06] MEDS: MELATONIN 3 MG TABLET PO PRN (19:49)
[2022-12-06] MEDS: ATORVASTATIN 40 MG TAB PO SCH (19:50)
--- NOTE | 2022-12-06 20:21 | PN ---
Date of Progress Note: 12/06/2022 Time Of Service: 12:15 p.m. Subjective: Mr. Castellanos is doing very well, resting in his room. He walked very much today, over 500 f eet. He is very happy with his therapy. He had no evidence of orthostatic hypotension or sensations of passing out. Review of Systems: No fevers, chills, nausea, vomiting, myalgias, arthralgias, rash, headache, weight change. Physical Examination: Vital Signs: Blood pressure 130/62, pulse of 73 while lying, while standing 100/53, pulse of 85. He was mildly symptomatic, but not significantly so. HEENT: He is as noted normocephalic, atraumatic. Sclerae anicteric. Oropharynx is pink and moist. Neck: Supple. Chest: Clear. Heart: Regular. Extremities: Show no clubbing, cyanosis, or edema. Laboratory Studies: Blood sugars ranged from 128 to 206. X-ray/imaging: No new x-rays or imaging. Medications: His medications have been reviewed and remained unchanged. Current Functional Status: Today, he ambulated 350 feet, 500 feet, and 750 feet with standby assista nce using a rolling walker. He ascended and descended 20 steps with bilateral handrails independentl y. He mobilized a wheelchair 250 feet and 150 feet independently. With occupational therapy, had a bed mobility, self propels from his wheelchair to room to bathroom all independently. Wheelchair to gym transferring with a wheelchair independently. He has made excellent progress towards goals of pe rforming all of his activities of daily living very well and he is doing very well. Progress Towards Rehabilitation Goals: Again, making excellent progress towards his goals and he is next to fully independent and ready for discharge. Continue with outpatient physical therapy is malia mmended. However, the patient may initially have home health for physical therapy due to his difficu lty with transportation. Assessment: Mr. Castellanos is an 87-year-old patient in rehabilitation for autonomic dysfunction, likely o f multifactorial etiology. He is doing excellent with physical and occupational therapy. He has com orbidities, diabetes mellitus, peripheral neuropathy, constipation, atrial fibrillation, hypothyroidi sm, malnutrition, and obstructive sleep apnea with an L2 fracture and a stage 2-3 renal insufficiency . Plan: Continue physical, occupational, and speech therapy for 3.5 hours, 5 of 7 days. He has multiple comorbid conditions which are listed above and he has medications, which are continue d without change. Comorbidities That Continue To Impact Rehabilitation Process: At this point, his comorbid conditions , which most potentially could impact rehabilitation would be orthostatic changes, but he is doing ex cellent with that and he knows how to be aware of presyncopal symptoms and to make sure he is seated if those occur. He is doing excellent. With that, he will be discharged home and follow up with his primary care physician as scheduled. DEIRDRE Voice ID: [id number] Report ID: [id number]
[2022-12-07] MEDS: LEVOTHYROXINE SOD 0.025 MG TAB PO SCH (05:18)
[2022-12-07] MEDS: LEVOTHYROXINE SOD 0.112 MG TAB PO SCH (05:18)
[2022-12-07] MEDS: INSULIN REGULAR (HUMAN) 100 UNIT/ML SQ SCH (06:39)
[2022-12-07] MEDS: ASPIRIN EC 81 MG TAB PO SCH (07:32)
[2022-12-07] MEDS: DORZOLAMIDE 2% OPTH SCH (07:32)
[2022-12-07] MEDS: MIDODRINE HCL 5 MG TABLET PO SCH (07:32)
[2022-12-07] MEDS: PIOGLITAZONE 15 MG TAB PO SCH (07:32)
[2022-12-07] MEDS: APIXABAN 2.5 MG TABLET PO SCH (07:32)
[2022-12-07] MEDS: DIGOXIN 0.125 MG TABLET PO SCH (07:32)
[2022-12-07] MEDS: GLUCERNA SHAKE 237 ML CAN PO SCH (07:33)
[2022-12-07 12:54] VITALS: BP 145/65; TEMP 97.4
== END 2022-12-07 10:55 | disposition home health service (06) | DRG 74 ==
LOC: 5TH 11-28 15:00
PROVIDERS: ADMIT Psychiatry & Neurology Neurology with Special Qualifications in Child Neurology; ATTEND Psychiatry & Neurology Neurology with Special Qualifications in Child Neurology
DX: E11.43 Type 2 diabetes mellitus with diabetic autonomic (poly)neuropathy (principal); E46 Unspecified protein-calorie malnutrition; I48.91 Unspecified atrial fibrillation; K59.00 Constipation, unspecified; D64.9 Anemia, unspecified; E78.5 Hyperlipidemia, unspecified; I10 Essential (primary) hypertension; E03.9 Hypothyroidism, unspecified; G47.33 Obstructive sleep apnea (adult) (pediatric); E11.65 Type 2 diabetes mellitus with hyperglycemia; R55 Syncope and collapse; G47.00 Insomnia, unspecified; M48.56XD Collapsed vertebra, not elsewhere classified, lumbar region, subsequent encounter for fracture with routine healing; Z68.21 Body mass index [BMI] 21.0-21.9, adult
CPT/HCPCS: 36415; 80048; 81001; 82040; 82947; 83735; 84134; 85025; 87086; 87088; 97110; 97112; 97116; 97129; 97130; 97161; 97165; 97530; 97542; J1815

== ENCOUNTER 2023-02-13 13:17 | Inpatient (IN) | payer OTHER ==
[2023-02-13] MEDS ORDERED: GLUCAGON 1 MG/VIAL IM PRN (16:13)
[2023-02-13] MEDS ORDERED: D50W 25 GM/50 ML SYRINGE IV PRN (16:13)
[2023-02-13] MEDS ORDERED: D10W 125 ML IV PRN (16:35)
[2023-02-13 17:05] VITALS: BMI 21.7
[2023-02-13] MEDS: INSULIN REGULAR (HUMAN) 100 UNIT/ML SQ SCH ×2 (17:16→19:42)
[2023-02-13 18:05] LABS: Urine Bacteria None Seen /HPF (<20); Urine Bilirubin NEGATIVE (Negative); Urine Blood Negative (Negative); Urine Clarity Clear (Clear); Urine Color Colorless (Yellow); Urine Glucose 4+ (Over) (Negative); Urine Mucus Slight /HPF (None Seen); Urine Protein NEGATIVE (Negative); Urine RBC <5 /HPF (None Seen); Urine Urobilinogen Normal (Normal)
[2023-02-13] MEDS: ATORVASTATIN 40 MG TAB PO SCH (19:40)
[2023-02-13] MEDS: METOPROLOL TAR 25 MG TAB PO SCH (19:40)
[2023-02-13] MEDS: DOCOSAHEXANOIC AC/EPA 1000 MG PO SCH (19:41)
[2023-02-13] MEDS: PIOGLITAZONE 15 MG TAB PO SCH (19:41)
[2023-02-13] MEDS: MIDODRINE HCL 5 MG TABLET PO SCH (19:42)
[2023-02-13] MEDS ORDERED: predniSONE 20 MG TAB PO SCH (20:00)
[2023-02-13] MEDS ORDERED: GABAPENTIN 100 MG CAP PO SCH (20:00)
[2023-02-13] MEDS ORDERED: MAGNESIUM OXIDE 400 MG TAB PO SCH (20:00)
[2023-02-14] MEDS: LEVOTHYROXINE SOD 0.025 MG TAB PO SCH (05:28)
[2023-02-14] MEDS: LEVOTHYROXINE SOD 0.112 MG TAB PO SCH (05:32)
[2023-02-14 07:28] LABS: Absolute Lymphocytes (CBC) 1.2 K/uL (0.7-4.9); Hematocrit 28.5 % (39.6-49.0); Lymphocytes % 9.9 % (15.3-44.8); MPV 7.3 fL (7.6-11.3); Platelets 314 thou/uL (152-406); RBC Red Blood Cell Count 2.93 M/uL (4.33-5.43)
[2023-02-14 07:48] LABS: Albumin 2.5 g/dL (3.4-5.0); Magnesium 2.6 mg/dL (1.6-2.4); Prealbumin 17.3 mg/dL (20-40)
[2023-02-14] MEDS ORDERED: predniSONE 20 MG TAB PO SCH (08:00)
[2023-02-14] MEDS ORDERED: TIZANIDINE 4 MG TABLET PO SCH (09:00)
[2023-02-14] MEDS ORDERED: GABAPENTIN 100 MG CAP PO SCH (09:00)
[2023-02-14] MEDS: ASCORBIC ACID 500 MG TABLET PO SCH (09:06)
[2023-02-14] MEDS: CYANOCOBALAMIN 1,000 MCG TAB PO SCH (09:06)
[2023-02-14] MEDS: FE SULF/FA/VIT B COMP & C TAB PO SCH (09:07)
[2023-02-14] MEDS: VITAMIN D 5,000 UNIT CAP PO SCH (09:07)
[2023-02-14] MEDS: MIDODRINE HCL 5 MG TABLET PO SCH ×3 (09:07→19:47)
[2023-02-14] MEDS: DOCUSATE NA/SENNA CONC 1 TAB PO SCH ×2 (09:07→19:48)
[2023-02-14] MEDS: DOCOSAHEXANOIC AC/EPA 1000 MG PO SCH ×2 (09:07→19:46)
[2023-02-14] MEDS: ASPIRIN 81 MG CHEWABLE TABLET PO SCH (09:08)
[2023-02-14] MEDS: MAGNESIUM OXIDE 400 MG TAB PO SCH (09:09)
[2023-02-14] MEDS: METOPROLOL TAR 25 MG TAB PO SCH ×2 (09:09→19:47)
[2023-02-14] MEDS: INSULIN REGULAR (HUMAN) 100 UNIT/ML SQ SCH ×4 (09:11→20:30)
[2023-02-14] MEDS ORDERED: TIZANIDINE 4 MG TABLET PO PRN (09:31)
[2023-02-14] MEDS: ZINC SULFATE 220 MG CAP PO SCH (09:45)
[2023-02-14] MEDS: DIGOXIN 0.125 MG TABLET PO SCH (09:45)
[2023-02-14] MEDS: GABAPENTIN 300 MG CAP PO SCH ×3 (10:53→19:46)
--- NOTE | 2023-02-14 10:58 | P.CNS ---
Date of Consult: 02/14/23 Reason for Consult: CHARISSA/ CKD Requesting Physician: Dru Le Chief Complaint: Generalized Weakness History of Present Illness: 86 yo WM HTN, DM, CKD presented to the [facility] with moderate, progressive AMS. He was transferred to [facility] for moderate, persistent generalized weakness in the setting of COVID. Allergies Penicillins Allergy (Mild, Verified 02/14/23 10:55) Rash Home medications list reviewed: Yes Home Medications: Aspirin Chewable [Aspirin Chewable*] 81 mg PO DAILY 11/29/22 Atorvastatin Calcium [Lipitor] 40 mg PO BEDTIME 11/29/22 Digoxin [Lanoxin*] 1 tab PO DAILY 11/29/22 Levothyroxine Sodium [Synthroid] 137 mcg PO 0630 11/29/22 Midodrine HCl [Proamatine*] 5 mg PO TID 11/29/22 Pioglitazone [Actos*] 15 mg PO BEDTIME 11/29/22 Ascorbic Acid [Vitamin C] 500 mg PO DAILY 02/13/23 Cholecalciferol (Vitamin D3) [Vitamin D3] 125 mcg PO DAILY 02/13/23 Cyanocobalamin [Vitamin B-12] 1,000 mcg PO DAILY 02/13/23 Gabapentin [Neurontin] 300 mg PO BID 02/13/23 Iron 18 mg PO DAILY 02/13/23 Magnesium Oxide [Magnesium] 400 mg PO BID 02/13/23 Metoprolol Tartrate 12.5 mg PO BID 02/13/23 Vermillion-3/Dha/Epa/Fish Oil [Fish Oil 1,000 mg Softgel] 1,000 mg PO BID 02/13/23 Patiromer Calcium Sorbitex [Veltassa] 8.4 gm PO M,W,F 02/13/23 predniSONE [Deltasone] 20 mg PO BID 02/13/23 - Past Medical/Surgical History Diabetic: Yes -: HTN -: JOSE (obstructive sleep apnea) -: DM II with Polyneuropathy -: CKD (Dr. Brice/ Dr. 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 - Social History Smoking Status: Never smoker Alcohol use: No CD- Drugs: No Caffeine use: Yes Place of Residence: Home Review of Systems 10-point ROS is otherwise unremarkable General: Weakness Physical Examination Temp Pulse Resp BP Pulse Ox 96.8 F 65 18 130/59 L 97 02/14/23 07:23 02/14/23 09:09 02/14/23 07:23 02/14/23 09:09 02/14/23 07:23 General: In no apparent distress, Oriented x3, Cooperative HEENT: Atraumatic Neck: Supple Respiratory: Clear to auscultation bilaterally Cardiovascular: Regular rate/rhythm, Edema (Hip), Systolic murmur Gastrointestinal: Soft and benign, Non-distended Musculoskeletal: No clubbing, No contractures Integumentary: No rashes, No cyanosis Neurological: Normal speech Laboratory Data (last 24 hrs) 02/14/23 02/14/23 07:05 07:05 WBC 12.10 H Hgb 9.8 L Hct 28.5 L Plt Count 314 Sodium 137 Potassium 5.0 BUN 73 H Creatinine 2.07 H Glucose 284 H Magnesium 2.6 H Conclusions/Impression: Stage I CHARISSA CKD III -No NSAIDs Hyperkalemia -Continue Veltessa Orthostatic Hypotension -Continue Midodrine DM II with Polyneuropathy A1C 6 -Continue Gabapentin -RISS Hypoalbuminemia -Continue Nepro Anemia in chronic illness -Monitor H&H -Continue oral iron Thank you kindly for the consultation
--- NOTE | 2023-02-14 12:48 | HP ---
Date of Admission: 02/13/2023 Time Of Service: 9:05 a.m. Chief Complaint: "I fell, passed out, became weak, had COVID." History Of Present Illness: Mr. Castellanos is an -[id number]-qfl patient with hypertension; hypothyroi dism; obstructive sleep apnea; atrial fibrillation, status post ablation and pacemaker placement; pattie betes mellitus type 2; dyslipidemia; coronary artery disease, status post 4 vessel coronary artery by pass grafting; mild neurocognitive disorder; renal mass who presented to [facility] in January ter his family found him unresponsive on the floor. Blood sugars were in the low 40s. He received a n IV D5 by the [facility] and came with altered mental status and continued hypoglyce roderick. He tested positive for COVID-19 and was treated with remdesivir, vitamin D, Zinc, and ascorbic acid. The patient's Amaryl for diabetes was held and Actos. He had hypotension that improved with f luids and midodrine continued with 5 mg twice daily. He was put on quarantine as he received his rem desivir. It was noted the patient has been coughing up "phlegm" for several hours prior to him passi ng out. He was treated for metabolic acidosis and his stage 3 kidney disease and had ongoing monitor ing. Given his multiple comorbid conditions including hypothyroidism, need to monitor his hemoglobin , hematocrit, his respiratory status and infection, chronic atrial fibrillation. He was determined t o be a very high risk medical patient and given his significant debility, his therapy was still opted for aggressive inpatient rehabilitation as alf would not be appropriate for him at this time. With her physical therapy, he is only able to ambulate about 12 feet with moderate assistance and that was well below his normal level of baseline functioning. Past Medical History: Atrial fibrillation, colonic polyps, diabetes mellitus, diverticulosis, dyslip idemia, coronary artery bypass grafting, hypertension, hypothyroidism, obstructive sleep apnea. Past Surgical History: Gastroduodenostomy in September 2020, pacemaker insertion, right renal mass, and status post cardiac ablation. Allergies: PENICILLIN. Current Medications: Vitamin C 500 mg daily, aspirin 81 mg daily, Lipitor 40 mg at bedtime, vitamin D 5000 units daily, B12 1000 mcg daily, digoxin 0.125 mg daily, Lovenox 40 mg subcutaneously daily, O brad-3 Fish Oil 1000 mg twice daily, gabapentin 300 mg 3 times daily, Synthroid 0.112 mg daily in add ition to another 0.025 mg daily of Synthroid, magnesium oxide 400 mg daily, Lopressor 12.5 mg twice d aily, midodrine 5 mg 3 times daily, Hemocyte Plus 1 tablet daily, Actos 15 mg at bedtime, prednisone 20 mg daily, Senokot S 2 at bedtime, Zanaflex 4 mg 3 times daily, zinc sulfate 220 mg daily. Family History: Noncontributory. Social History: No alcohol, tobacco, or IV drug use. Laboratory Studies: White blood cell count is 12.3, hemoglobin 9.8, platelets are 314. Sodium 137, potassium 5.0, chloride 105, carbon dioxide 29, BUN up to 73, creatinine 2.03. Note, he is followed by the renal service, Dr. Brice. Glucose 284, calcium 8.2. Magnesium 2.6. Albumin 2.5. Prealbum in 17.3. Urinalysis is normal except for 4+ glucose. Current Level Of Functioning: Currently, set up assistance for eating, oral hygiene. Dependent for toilet hygiene. Maximal assistance for bathing. Moderate assistance for upper body dressing. Maxim um assistance for lower body dressing, donning and doffing shoes. Moderate assistance for rolling ri ght-to-left, [id number] and sit to stand. Moderate assistance for bed to chair to toilet transfer and ambulation of 16 feet with moderate assistance. Rehab And Medical Assessment And Plan: Mr. Castellanos is admitted to the inpatient rehabilitation unit wit h impairment category 20 miscellaneous. His impairment group code is 16, debility, noncardiac, nonpu lmonary. His etiologic diagnoses type 2 diabetes mellitus, hypoglycemia. His comorbidities are card iomegaly; chronic kidney disease; COVID-19 positivity, status post remdesivir; decreased mobility; di abetes mellitus type 2; dyslipidemia; hypertension; hypoglycemia; hypothyroidism; metabolic acidosis; chronic atrial fibrillation, status post ablation; microcytic anemia. Plan: 1.Will have physical, occupational, and speech therapy for 3.5 hours, 5/7 days. 2.We will continue his comorbid condition medications including zinc sulfate and vitamin D and C for his COVID-19 positivity. Continue Tylenol 500 mg as needed for pain, Lipitor 40 mg at bedtime for d yslipidemia, digoxin 0.125 mg for his atrial fibrillation. Continue Lovenox 40 mg subcutaneous daily for DVT prophylaxis. His gabapentin 300 mg 3 times daily for pain. Continue with the Synthroid as noted hypothyroidism. Magnesium oxide 400 mg twice daily for muscle spasms. Continue Lopressor for 12.5 mg twice daily, but also have midodrine 3 times daily to help with his blood pressure support. The metoprolol is rate control. We will continue with Hemocyte Plus for anemia and prednisone, Zanaf nick, and zinc sulfate. Comorbidities That Are Impacting His Rehabilitation: He does have acute on chronic renal failure and is followed by the renal service for that. He has high risk of falling and may have another syncopa l episode. EKG may be done intermittently for tracking the patient's heart rate and response in chavez tion to his blood pressures, oxygen saturation will be followed carefully as he has a risk of recurre nce, but he is treated again with multiple medications for rate control. Rehab Specific Plan: Mr. Castellanos will have physical, occupational, and speech therapy for 3.5 hours, 5/ 7 days to improve his ability to transfer from bed to chair to toilet to shower to ambulate 250 feet, to go up and down 10 steps to mobilize a wheelchair 250 feet and perform cognitive functioning indep endently. Mr. Castellanos has a good understanding of the process of admission to the inpatient rehabilitation [facility] and how he will benefit from receiving physical, occupational, and speech therapy. If need be chavez tional services from the ID service, the pulmonary service, and renal service, which are already on b oard and cardiac service will be consulted. Given his complex medical condition and risk of further complications, rehabilitation cannot be safely or effectively performed at a lower level facility suc h as alf. Barriers To Discharge: Currently, his atrial fibrillation has to be monitored carefully for potentia l worsening. Again, he has rate control medications and anticoagulation on board. In addition, fall precautions were adhered to at all times. In addition, cognitive issues may make it difficult for [facility] to make safe decisions about his mobilization and transfers. He will be evaluated accordingly. Length Of Stay: About 12 days. Disposition: Home with family. Prognosis: Good. Rehabilitation Goals: 1.Independent upper and lower body dressing, toileting, showering, donning and doffing shoes. 2.Independently ambulate 250 feet with a rolling walker. 3.Independently propel a wheelchair 250 feet. 4.Independently go up and down 10 steps with bilateral handrails. 5.Independently perform cognitive functioning including medication management and good sound decisio n making. 6.The above goals were reviewed with Mr. Castellanos and he is in agreement. By signing this document, I acknowledge I personally performed a full physical examination on Mr. Radha stone no later than 24 hours after his admission to the inpatient rehabilitation facility and determined that he is able to tolerate the above course of treatment at an intensive level for reasonable period of time. A detailed individualized plan of care for him will be completed by hospital day 4 based o n the preadmission screen, history and physical, and therapy evaluations. DEIRDRE Voice ID: [id number]
[2023-02-14] MEDS ORDERED: MELATONIN 3 MG TABLET PO PRN (12:53)
[2023-02-14] MEDS: PATIROMER PO SCH (16:36)
[2023-02-14] MEDS ORDERED: ENOXAPARIN 40 MG/0.4 ML SQ SCH (17:00)
[2023-02-14] MEDS: ENOXAPARIN 30 MG/0.3 ML SQ SCH (17:41)
[2023-02-14] MEDS: ATORVASTATIN 40 MG TAB PO SCH (19:46)
[2023-02-14] MEDS: TRAZODONE 50 MG TABLET PO PRN (19:46)
[2023-02-14] MEDS: PIOGLITAZONE 15 MG TAB PO SCH (19:47)
[2023-02-14] MEDS: NEPRO SHAKE 237 ML CAN PO SCH (19:48)
[2023-02-15] MEDS: LEVOTHYROXINE SOD 0.025 MG TAB PO SCH (05:39)
[2023-02-15] MEDS: LEVOTHYROXINE SOD 0.112 MG TAB PO SCH (05:39)
[2023-02-15] MEDS: ZINC SULFATE 220 MG CAP PO SCH (08:00)
[2023-02-15] MEDS: MAGNESIUM OXIDE 400 MG TAB PO SCH (08:00)
[2023-02-15] MEDS: DIGOXIN 0.125 MG TABLET PO SCH (08:00)
[2023-02-15] MEDS: INSULIN REGULAR (HUMAN) 100 UNIT/ML SQ SCH ×4 (08:06→21:08)
[2023-02-15] MEDS: METOPROLOL TAR 25 MG TAB PO SCH ×2 (08:08→19:19)
[2023-02-15] MEDS: ASPIRIN 81 MG CHEWABLE TABLET PO SCH (08:08)
[2023-02-15] MEDS: ASCORBIC ACID 500 MG TABLET PO SCH (08:09)
[2023-02-15] MEDS: FE SULF/FA/VIT B COMP & C TAB PO SCH (08:09)
[2023-02-15] MEDS: GABAPENTIN 300 MG CAP PO SCH ×3 (08:09→19:27)
[2023-02-15] MEDS: DOCUSATE NA/SENNA CONC 1 TAB PO SCH ×2 (08:10→19:26)
[2023-02-15] MEDS: VITAMIN D 5,000 UNIT CAP PO SCH (08:11)
[2023-02-15] MEDS: FERROUS SULFATE 325 MG TAB PO SCH (08:11)
[2023-02-15] MEDS: CYANOCOBALAMIN 1,000 MCG TAB PO SCH (08:11)
[2023-02-15] MEDS: DOCOSAHEXANOIC AC/EPA 1000 MG PO SCH ×2 (08:12→19:26)
[2023-02-15] MEDS: predniSONE 10 MG TAB PO SCH (08:12)
[2023-02-15] MEDS: MIDODRINE HCL 5 MG TABLET PO SCH ×2 (08:15→14:00)
[2023-02-15] MEDS: NEPRO SHAKE 237 ML CAN PO SCH ×2 (08:15→21:09)
--- NOTE | 2023-02-15 12:21 | P.PN ---
Date of Service: 02/15/23 Vital Signs Temp Pulse Resp BP Pulse Ox 96.6 F L 65 18 150/65 H 97 02/15/23 08:00 02/15/23 08:08 02/15/23 08:00 02/15/23 08:08 02/15/23 08:00 Medications Aspirin (Aspirin 81 Mg Chewable Tablet) 81 mg PO DAILY [facility] Last Admin: 02/15/23 08:08 Dose: 81 mg Atorvastatin Calcium (Atorvastatin 40 Mg Tab) 40 mg PO BEDTIME [facility] Last Admin: 02/14/23 19:46 Dose: 40 mg Cholecalciferol (Vitamin D 5,000 Unit Cap) 5,000 unit PO DAILY [facility] Last Admin: 02/15/23 08:11 Dose: 5,000 unit Cyanocobalamin (Cyanocobalamin 1,000 Mcg Tab) 1,000 mcg PO DAILY [facility] Last Admin: 02/15/23 08:11 Dose: 1,000 mcg Digoxin (Digoxin 0.125 Mg Tablet) 0.125 mg PO DAILY [facility] Last Admin: 02/15/23 08:00 Dose: 0.125 mg Enoxaparin Sodium (Enoxaparin 30 Mg/0.3 Ml) 30 mg SQ DAILY 5 PM [facility] Last Admin: 02/14/23 17:41 Dose: 30 mg Enteral Nutritional Formula (Nepro Shake 237 Ml Can) 237 ml PO BID [facility] Last Admin: 02/15/23 08:15 Dose: 237 ml Ferrous Sulfate (Ferrous Sulfate 325 Mg Tab) 325 mg PO DAILY [facility] Last Admin: 02/15/23 08:11 Dose: 325 mg Fish Oil (Docosahexanoic Ac/Epa 1000 Mg) 1,000 mg PO BID [facility] Last Admin: 02/15/23 08:12 Dose: 1,000 mg Gabapentin (Gabapentin 300 Mg Cap) 300 mg PO TID [facility] Last Admin: 02/15/23 08:09 Dose: 300 mg Glucagon (Glucagon 1 Mg/Vial) 1 mg IM 1X PRN; Protocol PRN Reason: HYPOGLYCEMIA Home Med (Veltassa 8.4gram) 1 packet PO M,W,F [facility] Last Admin: 02/14/23 16:36 Dose: Not Given Dextrose (Dextrose 10% Water Iv Soln.) 125 mls @ 0 mls/hr IV PRN PRN; Protocol PRN Reason: HYPOGLYCEMIA Insulin Human Regular (Insulin Regular (Human) 100 Unit/Ml) 0 unit SQ ACHS [facility]; Protocol Levothyroxine Sodium (Levothyroxine Sod 0.112 Mg Tab) 0.112 mg PO DAILYAC [facility] Last Admin: 02/15/23 05:39 Dose: 0.112 mg Levothyroxine Sodium (Levothyroxine Sod 0.025 Mg Tab) 0.025 mg PO DAILYAC [facility] Last Admin: 02/15/23 05:39 Dose: 0.025 mg Melatonin (Melatonin 3 Mg Tablet) 3 mg PO BEDTIME PRN PRN PRN Reason: INSOMNIA Metoprolol Tartrate (Metoprolol Tar 25 Mg Tab) 12.5 mg PO BID [facility] Last Admin: 02/15/23 08:08 Dose: 12.5 mg Midodrine (Midodrine Hcl 5 Mg Tablet) 5 mg PO TID [facility] Last Admin: 02/15/23 08:15 Dose: Not Given Multivitamins/Iron (Fe Sulf/Fa/Vit B Comp & C Tab) 1 tab PO DAILY WITH BREAKFAST [facility] Last Admin: 02/15/23 08:09 Dose: 1 tab Pioglitazone HCl (Pioglitazone 15 Mg Tab) 15 mg PO BEDTIME [facility] Last Admin: 02/14/23 19:47 Dose: 15 mg Prednisone (Prednisone 10 Mg Tab) 10 mg PO DAILY [facility] Last Admin: 02/15/23 08:12 Dose: 10 mg Senna/Docusate Sodium (Docusate Na/Senna Conc 1 Tab) 2 tab PO BID [facility] Last Admin: 02/15/23 08:10 Dose: Not Given Tizanidine HCl (Tizanidine 4 Mg Tablet) 4 mg PO TID PRN PRN Reason: MUSCLE SPASMS Trazodone HCl (Trazodone 50 Mg Tablet) 50 mg PO BEDTIME PRN PRN PRN Reason: INSOMNIA Last Admin: 02/14/23 19:46 Dose: 50 mg Zinc Sulfate (Zinc Sulfate 220 Mg Cap) 220 mg PO DAILY [facility] Last Admin: 02/15/23 08:00 Dose: 220 mg Lab Results (last 24 hrs) 02/15/23 11:33: POC Glucose 253 H 02/15/23 06:54: POC Glucose 280 H 02/14/23 19:42: POC Glucose 400 H* 02/14/23 16:33: POC Glucose 364 H 02/14/23 12:08: POC Glucose 247 H Microbiology Results 02/13/23 17:20 Clean Catch Urine [place] Count - Preliminary BETWEEN 10,000 & 100,000 CFU/ML 02/13/23 17:20 Clean Catch Urine - Preliminary MIXED FERN. Assessment/ Plan: Nephrology No dyspnea No chest pain +BM No acute events overnight Vitals, medications, blood work and imaging reviewed in the chart General: In no apparent distress, Oriented x3, Cooperative HEENT: Atraumatic Neck: Supple Respiratory: Clear to auscultation bilaterally Cardiovascular: Regular rate/rhythm, LE Edema, Systolic murmur Gastrointestinal: Soft and benign, Non-distended Musculoskeletal: No clubbing, No contractures Integumentary: No rashes, No cyanosis Neurological: Normal speech Laboratory Data (last 24 hrs) 02/14/23 02/14/23 07:05 07:05 WBC 12.10 H Hgb 9.8 L Hct 28.5 L Plt Count 314 Sodium 137 Potassium 5.0 BUN 73 H Creatinine 2.07 H Glucose 284 H Magnesium 2.6 H Conclusions/Impression: Stage I CHARISSA CKD III -No NSAIDs Hyperkalemia -Continue Veltessa Hypermagnesemia -DC MagOx at this time Orthostatic Hypotension -Continue Midodrine DM II with Polyneuropathy A1C 6 -Continue Gabapentin -Increase RISS to moderate -Wean prednisone as tolerated Hypoalbuminemia -Continue Nepro Anemia in chronic illness -Monitor H&H -Continue oral iron Generalized muscle weakness Asthenia -PT as ordered
[2023-02-15] MEDS: ENOXAPARIN 30 MG/0.3 ML SQ SCH (16:39)
[2023-02-15] MEDS: TRAZODONE 50 MG TABLET PO PRN (19:26)
[2023-02-15] MEDS: ATORVASTATIN 40 MG TAB PO SCH (19:27)
--- NOTE | 2023-02-15 21:49 | PN ---
Date of Progress Note: 02/15/2023 Time Of Service: 1:40 p.m. Subjective: Mr. Castellanos is resting comfortably in bed, in no significant distress. He has no complaint s. No fevers, chills, nausea, vomiting. No myalgias, arthralgias. No other positives on systems re view. Physical Examination: Vital Signs: Blood pressure 127/59, pulse 68, respiratory rate 18, temperature 98.1, oxygen saturati on 96%. General: Mr. Castellanos is resting comfortably again. HEENT: Normocephalic, atraumatic. Sclerae are anicteric. Oropharynx pink, moist. Neck: Supple. Chest: Clear. Heart: Regular. Extremities: Show no significant clubbing, cyanosis, or edema. Laboratory Studies: White blood cell count 12.1, hemoglobin 9.8, platelets 314. Blood sugars today were significantly elevated at one point, actually yesterday at 400. He is seen by Dr. Brice in e Renal Service was helping. Blood sugars later today around 416, in the afternoon was 291. It is n oted that the patient has not been restarted on Actos, which is at home and his blood sugars have aga in been elevated. He will restart with 30 mg with breakfast. Medications: Actos now 30 mg at breakfast, aspirin 81 mg daily, Lipitor 40 mg at bedtime, vitamin D 5000 units daily, vitamin B12 1000 mcg sublingual daily, Lanoxin 0.125 mg daily, Lovenox 30 mg subcut aneously daily, Nepro shake 237 mL twice daily, ferrous sulfate 325 mg daily, fish oil 1000 mg daily, gabapentin 300 mg 3 times daily, levothyroxine 0.137 mg daily, melatonin 3 mg at bedtime, Lopressor 12.5 mg twice daily, midodrine 5 mg 3 times daily, Hemocyte Plus 1 tablet daily, prednisone 10 mg keeley ly that is decreased from 20 mg daily, Zanaflex 4 mg 3 times daily as needed, Senokot-S 2 twice daily , trazodone 50 mg at bedtime, zinc sulfate 220 mg daily. Progress Made With Physical And Occupational Therapy: Today, he mobilized with wheelchair 75 feet wi minimum assistance. Also, he ambulated another 50 feet with minimum assistance. With occupationa l therapy, he did use 2-pound celeste to improve strength of the upper extremities. Mr. Castellanos is making fair overall progress with his physical and occupational therapy. Still having is sues with blood sugar control and so again, Actos has been added. He is now on a moderate glucose sl iding scale. Assessment: Mr. Castellanos is an 87-year-old patient in the rehabilitation unit with his poorly controlled diabetes mellitus type 2 with hyperglycemia, cardiomegaly, chronic kidney disease followed by the Re nal Service, COVID-19 positivity status post remdesivir, decreased mobility, dyslipidemia, hypertensi on, hypothyroidism. In addition, he did have an episode of hypoglycemia and again he is to watch makayla sely for that and again atrial fibrillation. Plan: 1.Continue with physical, occupational, and speech therapy. 2.Continue with all comorbid condition medications which the patient is on, again Actos added now 30 mg in the morning, moderate sliding scale for glucose, and again renal Service is following him for his chronic renal insufficiency. Comorbidities That Continue To Impact Rehabilitation: Currently, his blood sugars which are now well known to be more aggressively addressed with monitoring for hypoglycemia which again occurred causin g him to be poorly responsive and again we will watch more closely and Renal Service is following him . CHELA/ANA MARÍA Voice ID: [id number] Report ID: [id number]
[2023-02-16] MEDS: LEVOTHYROXINE SOD 0.025 MG TAB PO SCH (05:35)
[2023-02-16] MEDS: LEVOTHYROXINE SOD 0.112 MG TAB PO SCH (05:35)
[2023-02-16] MEDS: INSULIN REGULAR (HUMAN) 100 UNIT/ML SQ SCH ×4 (07:30→20:26)
[2023-02-16 08:22] LABS: Absolute Lymphocytes (CBC) 1.7 K/uL (0.7-4.9); Hematocrit 27.8 % (39.6-49.0); Lymphocytes % 17.9 % (15.3-44.8); MCV 97.9 fL (80-100); MPV 7.7 fL (7.6-11.3); Platelets 254 thou/uL (152-406); RBC Red Blood Cell Count 2.84 M/uL (4.33-5.43)
[2023-02-16 08:42] LABS: Albumin 2.4 g/dL (3.4-5.0); Bilirubin Total 0.8 mg/dL (0.2-1.0); Magnesium 2.6 mg/dL (1.6-2.4); Phosphorus 2.9 mg/dL (2.5-4.9); Potassium 4.8 mEq/L (3.5-5.1); Protein, Total 5.5 g/dL (6.4-8.2); Uric Acid 7.1 mg/dL (3.5-7.2)
[2023-02-16] MEDS: PIOGLITAZONE 15 MG TAB PO SCH (10:23)
[2023-02-16] MEDS: FE SULF/FA/VIT B COMP & C TAB PO SCH (10:23)
[2023-02-16] MEDS: DOCUSATE NA/SENNA CONC 1 TAB PO SCH ×2 (10:23→20:23)
[2023-02-16] MEDS: DOCOSAHEXANOIC AC/EPA 1000 MG PO SCH ×2 (10:24→20:22)
[2023-02-16] MEDS: GABAPENTIN 300 MG CAP PO SCH ×2 (10:24→20:22)
[2023-02-16] MEDS: CYANOCOBALAMIN 1,000 MCG TAB PO SCH (10:24)
[2023-02-16] MEDS: VITAMIN D 5,000 UNIT CAP PO SCH (10:24)
[2023-02-16] MEDS: predniSONE 10 MG TAB PO SCH (10:24)
[2023-02-16] MEDS: ASPIRIN 81 MG CHEWABLE TABLET PO SCH (10:24)
[2023-02-16] MEDS: FERROUS SULFATE 325 MG TAB PO SCH (10:24)
[2023-02-16] MEDS: MIDODRINE HCL 5 MG TABLET PO SCH (10:25)
[2023-02-16] MEDS: METOPROLOL TAR 25 MG TAB PO SCH ×2 (10:25→20:22)
[2023-02-16] MEDS: DIGOXIN 0.125 MG TABLET PO SCH (10:32)
[2023-02-16] MEDS: ZINC SULFATE 220 MG CAP PO SCH (10:32)
[2023-02-16] MEDS: NEPRO SHAKE 237 ML CAN PO SCH ×2 (10:32→20:28)
--- NOTE | 2023-02-16 14:04 | P.RH.PN ---
Estimated Length of Stay: 13 Expected Discharge Date: 02/26/23 Discharge Disposition Plan: Home Family Support: Yes Long-Term Goal: Mobility, Transfers, Self Care Vital Signs: Last Vital Signs Temp 97.2 F 02/16/23 08:00 Pulse 64 02/16/23 10:25 Resp 14 02/16/23 08:00 BP 136/65 02/16/23 10:25 Pulse Ox 98 02/16/23 08:00 Laboratory: Laboratory Last Values WBC 9.60 thou/uL (4.3-10.9) 02/16/23 05:40 RBC 2.84 M/uL (4.33-5.43) L 02/16/23 05:40 Hgb 9.6 g/dL (13.6-17.9) L 02/16/23 05:40 Hct 27.8 % (39.6-49.0) L 02/16/23 05:40 MCV 97.9 fL (80-100) 02/16/23 05:40 MCH 33.9 pg (27.0-35.0) 02/16/23 05:40 MCHC 34.6 g/dL (32.0-36.0) 02/16/23 05:40 RDW 15.1 % (12.1-15.2) 02/16/23 05:40 Plt Count 254 thou/uL (152-406) 02/16/23 05:40 MPV 7.7 fL (7.6-11.3) 02/16/23 05:40 Neutrophils % 70.4 % (41.7-73.7) 02/16/23 05:40 Lymphocytes % 17.9 % (15.3-44.8) 02/16/23 05:40 Monocytes % 10.6 % (3.3-12.3) 02/16/23 05:40 Eosinophils % 0.8 % (0-4.4) 02/16/23 05:40 Basophils % 0.3 % (0-1.3) 02/16/23 05:40 Absolute Neutrophils 6.7 K/uL (1.8-8.0) 02/16/23 05:40 Absolute Lymphocytes 1.7 K/uL (0.7-4.9) 02/16/23 05:40 Absolute Monocytes 1.0 K/uL (0.1-1.3) 02/16/23 05:40 Absolute Eosinophils 0.1 K/uL (0-0.5) 02/16/23 05:40 Absolute Basophils 0.0 K/uL (0-0.5) 02/16/23 05:40 Sodium 137 mEq/L (136-145) 02/16/23 05:40 Potassium 4.8 mEq/L (3.5-5.1) 02/16/23 05:40 Chloride 103 mEq/L (98-107) 02/16/23 05:40 Carbon Dioxide 31 mEq/L (21-32) 02/16/23 05:40 Anion Gap 7.8 mEq/L (5.0-15.0) 02/16/23 05:40 BUN 87 mg/dL (7-18) H 02/16/23 05:40 Creatinine 2.00 mg/dL (0.70-1.30) H 02/16/23 05:40 Est GFR (CKD-EPI) 32 ml/min (=/>90) L 02/16/23 05:40 Glucose 213 mg/dL (74-106) H 02/16/23 05:40 POC Glucose 308 mg/dL (65-120) H 02/16/23 11:00 Uric Acid 7.1 mg/dL (3.5-7.2) 02/16/23 05:40 Calcium 8.5 mg/dL (8.5-10.1) 02/16/23 05:40 Phosphorus 2.9 mg/dL (2.5-4.9) 02/16/23 05:40 Magnesium 2.6 mg/dL (1.6-2.4) H 02/16/23 05:40 Total Bilirubin 0.8 mg/dL (0.2-1.0) 02/16/23 05:40 AST 14 U/L (15-37) L 02/16/23 05:40 ALT 22 U/L (16-61) 02/16/23 05:40 Alkaline Phosphatase 58 U/L (45-117) 02/16/23 05:40 Serum Total Protein 5.5 g/dL (6.4-8.2) L 02/16/23 05:40 Albumin 2.4 g/dL (3.4-5.0) L 02/16/23 05:40 Globulin 3.1 g/dL (2.3-3.5) 02/16/23 05:40 Albumin/Globulin Ratio 0.8 (1.1-1.8) L 02/16/23 05:40 Prealbumin 17.3 mg/dL (20-40) L 02/14/23 07:05 Urine Color Colorless (Yellow) 02/13/23 17:20 Urine Clarity Clear (Clear) 02/13/23 17:20 Urine pH 5.0 (5.0-7.0) 02/13/23 17:20 Ur Specific [place] 1.010 (1.005-1.030) 02/13/23 17:20 Glucose (UA)(Auto) 4+ (over) (Negative) H 02/13/23 17:20 Urine Ketones Negative (Negative) 02/13/23 17:20 Urine Blood Negative (Negative) 02/13/23 17:20 Urine Nitrite Negative (Negative) 02/13/23 17:20 Urine Bilirubin Negative (Negative) 02/13/23 17:20 Urine Urobilinogen Normal (Normal) 02/13/23 17:20 Ur Leukocyte Esterase Negative Lizeth/uL (Negative) 02/13/23 17:20 Urine RBC <5 /HPF (None Seen) 02/13/23 17:20 Urine WBC None seen /HPF (<5) 02/13/23 17:20 Ur Squamous Epith Cells None seen /HPF (None Seen) 02/13/23 17:20 Urine Bacteria None seen /HPF (<20) 02/13/23 17:20 Urine Mucus Slight /HPF (None Seen) 02/13/23 17:20 Urine Culture Reflexed Not needed 02/13/23 17:20 Urine Total Protein Negative (Negative) 02/13/23 17:20 Weight: 160 lb Wound Present: No Negative Pressure Wound Therapy Present: No Physician Update: Labs reviewed and are stable. BIMS 15, pressure ulcer to sacrum. Min donte bed mobility. RW 150' with legs partly giving out. Pushed WC 200', 5 steps. Summary: Patient's care plan and nursing home goals have been reviewed and revised as necessary. Please see the Rehabilitation Signature page for all necessary signatures.
[2023-02-16] MEDS ORDERED: TRAZODONE 50 MG TABLET PO PRN (15:52)
[2023-02-16] MEDS: PATIROMER PO SCH (17:00)
[2023-02-16] MEDS: ENOXAPARIN 30 MG/0.3 ML SQ SCH (17:04)
[2023-02-16] MEDS: ATORVASTATIN 40 MG TAB PO SCH (20:22)
[2023-02-17] MEDS: LEVOTHYROXINE SOD 0.025 MG TAB PO SCH (05:31)
[2023-02-17] MEDS: LEVOTHYROXINE SOD 0.112 MG TAB PO SCH (05:31)
[2023-02-17 06:49] LABS: Potassium 4.8 mEq/L (3.5-5.1)
[2023-02-17] MEDS: ZINC SULFATE 220 MG CAP PO SCH (08:00)
[2023-02-17] MEDS: DIGOXIN 0.125 MG TABLET PO SCH (08:00)
[2023-02-17] MEDS: GABAPENTIN 300 MG CAP PO SCH ×2 (09:19→20:24)
[2023-02-17] MEDS: DOCUSATE NA/SENNA CONC 1 TAB PO SCH ×2 (09:19→20:00)
[2023-02-17] MEDS: DOCOSAHEXANOIC AC/EPA 1000 MG PO SCH ×2 (09:19→20:24)
[2023-02-17] MEDS: FERROUS SULFATE 325 MG TAB PO SCH (09:20)
[2023-02-17] MEDS: FE SULF/FA/VIT B COMP & C TAB PO SCH (09:20)
[2023-02-17] MEDS: CYANOCOBALAMIN 1,000 MCG TAB PO SCH (09:20)
[2023-02-17] MEDS: VITAMIN D 5,000 UNIT CAP PO SCH (09:20)
[2023-02-17] MEDS: MIDODRINE HCL 5 MG TABLET PO SCH (09:20)
[2023-02-17] MEDS: predniSONE 10 MG TAB PO SCH (09:21)
[2023-02-17] MEDS: ASPIRIN 81 MG CHEWABLE TABLET PO SCH (09:21)
[2023-02-17] MEDS: PIOGLITAZONE 15 MG TAB PO SCH (09:21)
[2023-02-17] MEDS: METOPROLOL TAR 25 MG TAB PO SCH ×2 (09:21→20:23)
[2023-02-17] MEDS: NEPRO SHAKE 237 ML CAN PO SCH ×2 (09:24→20:43)
[2023-02-17] MEDS: INSULIN REGULAR (HUMAN) 100 UNIT/ML SQ SCH ×5 (09:32→20:24)
--- NOTE | 2023-02-17 12:29 | P.PN ---
Date of Service: 02/17/23 Vital Signs Temp Pulse Resp BP Pulse Ox 97 F 62 16 128/61 97 02/17/23 07:43 02/17/23 09:21 02/17/23 07:43 02/17/23 09:21 02/17/23 07:43 Medications Aspirin (Aspirin 81 Mg Chewable Tablet) 81 mg PO DAILY [facility] Last Admin: 02/17/23 09:21 Dose: 81 mg Atorvastatin Calcium (Atorvastatin 40 Mg Tab) 40 mg PO BEDTIME [facility] Last Admin: 02/16/23 20:22 Dose: 40 mg Cholecalciferol (Vitamin D 5,000 Unit Cap) 5,000 unit PO DAILY [facility] Last Admin: 02/17/23 09:20 Dose: 5,000 unit Cyanocobalamin (Cyanocobalamin 1,000 Mcg Tab) 1,000 mcg PO DAILY [facility] Last Admin: 02/17/23 09:20 Dose: 1,000 mcg Digoxin (Digoxin 0.125 Mg Tablet) 0.125 mg PO DAILY [facility] Last Admin: 02/17/23 08:00 Dose: 0.125 mg Enoxaparin Sodium (Enoxaparin 30 Mg/0.3 Ml) 30 mg SQ DAILY 5 PM [facility] Last Admin: 02/16/23 17:04 Dose: 30 mg Enteral Nutritional Formula (Nepro Shake 237 Ml Can) 237 ml PO BID [facility] Last Admin: 02/17/23 09:24 Dose: 237 ml Ferrous Sulfate (Ferrous Sulfate 325 Mg Tab) 325 mg PO DAILY [facility] Last Admin: 02/17/23 09:20 Dose: 325 mg Fish Oil (Docosahexanoic Ac/Epa 1000 Mg) 1,000 mg PO BID [facility] Last Admin: 02/17/23 09:19 Dose: 1,000 mg Gabapentin (Gabapentin 300 Mg Cap) 300 mg PO BID [facility] Last Admin: 02/17/23 09:19 Dose: 300 mg Glucagon (Glucagon 1 Mg/Vial) 1 mg IM 1X PRN; Protocol PRN Reason: HYPOGLYCEMIA Home Med (Veltassa 8.4gram) 1 packet PO M,W,F [facility] Last Admin: 02/16/23 17:00 Dose: Not Given Dextrose (Dextrose 10% Water Iv Soln.) 125 mls @ 0 mls/hr IV PRN PRN; Protocol PRN Reason: HYPOGLYCEMIA Insulin Human Regular (Insulin Regular (Human) 100 Unit/Ml) 0 unit SQ ACHS [facility]; Protocol Last Admin: 02/17/23 12:19 Dose: 9 unit Levothyroxine Sodium (Levothyroxine Sod 0.112 Mg Tab) 0.112 mg PO DAILYAC [facility] Last Admin: 02/17/23 05:31 Dose: 0.112 mg Levothyroxine Sodium (Levothyroxine Sod 0.025 Mg Tab) 0.025 mg PO DAILYAC [facility] Last Admin: 02/17/23 05:31 Dose: 0.025 mg Melatonin (Melatonin 3 Mg Tablet) 3 mg PO BEDTIME PRN PRN PRN Reason: INSOMNIA Metoprolol Tartrate (Metoprolol Tar 25 Mg Tab) 12.5 mg PO BID [facility] Last Admin: 02/17/23 09:21 Dose: 12.5 mg Midodrine (Midodrine Hcl 5 Mg Tablet) 5 mg PO DAILY [facility] Last Admin: 02/17/23 09:20 Dose: 5 mg Multivitamins/Iron (Fe Sulf/Fa/Vit B Comp & C Tab) 1 tab PO DAILY WITH BREAKFAST [facility] Last Admin: 02/17/23 09:20 Dose: 1 tab Pioglitazone HCl (Pioglitazone 15 Mg Tab) 30 mg PO DAILY WITH BREAKFAST [facility] Last Admin: 02/17/23 09:21 Dose: 30 mg Prednisone (Prednisone 10 Mg Tab) 10 mg PO DAILY [facility] Last Admin: 02/17/23 09:21 Dose: 10 mg Senna/Docusate Sodium (Docusate Na/Senna Conc 1 Tab) 2 tab PO BID [facility] Last Admin: 02/17/23 09:19 Dose: 2 tab Tizanidine HCl (Tizanidine 4 Mg Tablet) 4 mg PO TID PRN PRN Reason: MUSCLE SPASMS Trazodone HCl (Trazodone 50 Mg Tablet) 25 mg PO BEDTIME PRN PRN PRN Reason: INSOMNIA Zinc Sulfate (Zinc Sulfate 220 Mg Cap) 220 mg PO DAILY [facility] Last Admin: 02/17/23 08:00 Dose: 220 mg Lab Results (last 24 hrs) 02/17/23 11:04: POC Glucose 314 H 02/17/23 07:14: POC Glucose 223 H 02/17/23 05:45: Sodium 135 L, Potassium 4.8, Chloride 103, Carbon Dioxide 31, Anion Gap 5.8, BUN 77 H, Creatinine 1.99 H, Est GFR (CKD-EPI) 32 L, Glucose 246 H, Calcium 8.3 L 02/16/23 19:27: POC Glucose 295 H 02/16/23 16:03: POC Glucose 159 H Microbiology Results 02/13/23 17:20 Clean Catch Urine [place] Count - Final BETWEEN 10,000 & 100,000 CFU/ML 02/13/23 17:20 Clean Catch Urine - Final MIXED FERN. Assessment/ Plan: Nephrology No dyspnea No chest pain +PO No acute events overnight Vitals, medications, blood work and imaging reviewed in the chart General: In no apparent distress, Oriented x3, Cooperative HEENT: Atraumatic Neck: Supple Respiratory: Clear to auscultation bilaterally Cardiovascular: Regular rate/rhythm, LE Edema, Systolic murmur Gastrointestinal: Soft and benign, Non-distended Musculoskeletal: No clubbing, No contractures Integumentary: No rashes, No cyanosis Neurological: Normal speech Laboratory Data (last 24 hrs) 02/14/23 02/14/23 07:05 07:05 WBC 12.10 H Hgb 9.8 L Hct 28.5 L Plt Count 314 Sodium 137 Potassium 5.0 BUN 73 H Creatinine 2.07 H Glucose 284 H Magnesium 2.6 H Conclusions/Impression: Stage I CHARISSA CKD III -No NSAIDs Hyperkalemia -Continue Veltessa Hypermagnesemia -Hold MagOx Orthostatic Hypotension -Continue Midodrine DM II with Polyneuropathy A1C 6 -Continue Gabapentin -RISS -Wean prednisone as tolerated Hypoalbuminemia -Continue Nepro Anemia in chronic illness -Monitor H&H -Continue oral iron -Retacrit X1 Generalized muscle weakness Asthenia -PT as ordered
[2023-02-17] MEDS ORDERED: EPOETIN ALFA-EPBX 10,000 UNIT/ML VIAL SQ ONE (13:00)
[2023-02-17] MEDS: ENOXAPARIN 30 MG/0.3 ML SQ SCH (16:49)
[2023-02-17] MEDS: ATORVASTATIN 40 MG TAB PO SCH (20:25)
[2023-02-17] MEDS ORDERED: DOCUSATE NA/SENNA CONC 1 TAB PO PRN (21:02)
[2023-02-18] MEDS: LEVOTHYROXINE SOD 0.112 MG TAB PO SCH (05:31)
[2023-02-18] MEDS: LEVOTHYROXINE SOD 0.025 MG TAB PO SCH (05:31)
[2023-02-18] MEDS: INSULIN REGULAR (HUMAN) 100 UNIT/ML SQ SCH ×4 (07:30→19:57)
[2023-02-18] MEDS: DOCOSAHEXANOIC AC/EPA 1000 MG PO SCH ×2 (08:30→19:53)
[2023-02-18] MEDS: predniSONE 10 MG TAB PO SCH (08:30)
[2023-02-18] MEDS: ASPIRIN 81 MG CHEWABLE TABLET PO SCH (08:30)
[2023-02-18] MEDS: FERROUS SULFATE 325 MG TAB PO SCH (08:30)
[2023-02-18] MEDS: FE SULF/FA/VIT B COMP & C TAB PO SCH (08:30)
[2023-02-18] MEDS: VITAMIN D 5,000 UNIT CAP PO SCH (08:30)
[2023-02-18] MEDS: METOPROLOL TAR 25 MG TAB PO SCH ×2 (08:31→19:53)
[2023-02-18] MEDS: MIDODRINE HCL 5 MG TABLET PO SCH (08:31)
[2023-02-18] MEDS: PIOGLITAZONE 15 MG TAB PO SCH (08:31)
[2023-02-18] MEDS: DIGOXIN 0.125 MG TABLET PO SCH (08:31)
[2023-02-18] MEDS: NEPRO SHAKE 237 ML CAN PO SCH ×2 (09:31→19:53)
[2023-02-18] MEDS: CYANOCOBALAMIN 1,000 MCG TAB PO SCH (09:32)
[2023-02-18] MEDS: GABAPENTIN 300 MG CAP PO SCH ×2 (09:32→19:53)
[2023-02-18] MEDS: ZINC SULFATE 220 MG CAP PO SCH (09:33)
[2023-02-18] MEDS: ENOXAPARIN 30 MG/0.3 ML SQ SCH (16:35)
[2023-02-18] MEDS: ATORVASTATIN 40 MG TAB PO SCH (19:57)
[2023-02-19] MEDS: LEVOTHYROXINE SOD 0.025 MG TAB PO SCH (05:35)
[2023-02-19] MEDS: LEVOTHYROXINE SOD 0.112 MG TAB PO SCH (05:35)
[2023-02-19 07:27] LABS: Albumin 2.4 g/dL (3.4-5.0); Phosphorus 3.9 mg/dL (2.5-4.9); Potassium 4.3 mEq/L (3.5-5.1)
[2023-02-19] MEDS: INSULIN REGULAR (HUMAN) 100 UNIT/ML SQ SCH ×4 (07:30→20:02)
[2023-02-19] MEDS: NEPRO SHAKE 237 ML CAN PO SCH ×2 (08:00→20:00)
[2023-02-19] MEDS: DIGOXIN 0.125 MG TABLET PO SCH (08:06)
[2023-02-19] MEDS: predniSONE 10 MG TAB PO SCH (08:06)
[2023-02-19] MEDS: FE SULF/FA/VIT B COMP & C TAB PO SCH (08:06)
[2023-02-19] MEDS: VITAMIN D 5,000 UNIT CAP PO SCH (08:06)
[2023-02-19] MEDS: CYANOCOBALAMIN 1,000 MCG TAB PO SCH (08:06)
[2023-02-19] MEDS: FERROUS SULFATE 325 MG TAB PO SCH (08:06)
[2023-02-19] MEDS: METOPROLOL TAR 25 MG TAB PO SCH ×2 (08:06→20:01)
[2023-02-19] MEDS: DOCOSAHEXANOIC AC/EPA 1000 MG PO SCH ×2 (08:08→20:01)
[2023-02-19] MEDS: PIOGLITAZONE 15 MG TAB PO SCH (08:08)
[2023-02-19] MEDS: ASPIRIN 81 MG CHEWABLE TABLET PO SCH (08:08)
[2023-02-19] MEDS: MIDODRINE HCL 5 MG TABLET PO SCH (08:08)
[2023-02-19] MEDS: ZINC SULFATE 220 MG CAP PO SCH (08:08)
[2023-02-19] MEDS: GABAPENTIN 300 MG CAP PO SCH (08:10)
[2023-02-19] MEDS: ENOXAPARIN 30 MG/0.3 ML SQ SCH (17:28)
[2023-02-19] MEDS: ATORVASTATIN 40 MG TAB PO SCH (20:01)
--- NOTE | 2023-02-19 20:12 | P.PN ---
Date of Service: 02/19/23 Vital Signs Temp Pulse Resp BP Pulse Ox 97.6 F 69 18 123/59 L 93 02/19/23 08:00 02/19/23 20:01 02/19/23 08:00 02/19/23 20:01 02/19/23 08:00 Medications Aspirin (Aspirin 81 Mg Chewable Tablet) 81 mg PO DAILY [facility] Last Admin: 02/19/23 08:08 Dose: 81 mg Atorvastatin Calcium (Atorvastatin 40 Mg Tab) 40 mg PO BEDTIME [facility] Last Admin: 02/19/23 20:01 Dose: 40 mg Cholecalciferol (Vitamin D 5,000 Unit Cap) 5,000 unit PO DAILY [facility] Last Admin: 02/19/23 08:06 Dose: 5,000 unit Cyanocobalamin (Cyanocobalamin 1,000 Mcg Tab) 1,000 mcg PO DAILY [facility] Last Admin: 02/19/23 08:06 Dose: 1,000 mcg Digoxin (Digoxin 0.125 Mg Tablet) 0.125 mg PO DAILY [facility] Last Admin: 02/19/23 08:06 Dose: 0.125 mg Enoxaparin Sodium (Enoxaparin 30 Mg/0.3 Ml) 30 mg SQ DAILY 5 PM [facility] Last Admin: 02/19/23 17:28 Dose: 30 mg Enteral Nutritional Formula (Nepro Shake 237 Ml Can) 237 ml PO BID [facility] Last Admin: 02/19/23 20:00 Dose: Not Given Ferrous Sulfate (Ferrous Sulfate 325 Mg Tab) 325 mg PO DAILY [facility] Last Admin: 02/19/23 08:06 Dose: 325 mg Fish Oil (Docosahexanoic Ac/Epa 1000 Mg) 1,000 mg PO BID [facility] Last Admin: 02/19/23 20:01 Dose: 1,000 mg Gabapentin (Gabapentin 100 Mg Cap) 100 mg PO BID [facility] Glucagon (Glucagon 1 Mg/Vial) 1 mg IM 1X PRN; Protocol PRN Reason: HYPOGLYCEMIA Home Med (Veltassa 8.4gram) 1 packet PO MO,FR [facility] Last Admin: 02/19/23 20:04 Dose: 1 packet Dextrose (Dextrose 10% Water Iv Soln.) 125 mls @ 0 mls/hr IV PRN PRN; Protocol PRN Reason: HYPOGLYCEMIA Insulin Human Regular (Insulin Regular (Human) 100 Unit/Ml) 0 unit SQ ACHS [facility]; Protocol Last Admin: 02/19/23 20:02 Dose: 9 unit Levothyroxine Sodium (Levothyroxine Sod 0.112 Mg Tab) 0.112 mg PO DAILYAC [facility] Last Admin: 02/19/23 05:35 Dose: 0.112 mg Levothyroxine Sodium (Levothyroxine Sod 0.025 Mg Tab) 0.025 mg PO DAILYAC [facility] Last Admin: 02/19/23 05:35 Dose: 0.025 mg Melatonin (Melatonin 3 Mg Tablet) 3 mg PO BEDTIME PRN PRN PRN Reason: INSOMNIA Metoprolol Tartrate (Metoprolol Tar 25 Mg Tab) 12.5 mg PO BID [facility] Last Admin: 02/19/23 20:01 Dose: 12.5 mg Midodrine (Midodrine Hcl 5 Mg Tablet) 5 mg PO DAILY [facility] Last Admin: 02/19/23 08:08 Dose: 5 mg Multivitamins/Iron (Fe Sulf/Fa/Vit B Comp & C Tab) 1 tab PO DAILY WITH BREAKFAST [facility] Last Admin: 02/19/23 08:06 Dose: 1 tab Pioglitazone HCl (Pioglitazone 15 Mg Tab) 30 mg PO DAILY WITH BREAKFAST [facility] Last Admin: 02/19/23 08:08 Dose: 30 mg Prednisone (Prednisone 10 Mg Tab) 10 mg PO DAILY [facility] Last Admin: 02/19/23 08:06 Dose: 10 mg Senna/Docusate Sodium (Docusate Na/Senna Conc 1 Tab) 2 tab PO BID PRN PRN Reason: CONSTIPATION Tizanidine HCl (Tizanidine 4 Mg Tablet) 4 mg PO TID PRN PRN Reason: MUSCLE SPASMS Trazodone HCl (Trazodone 50 Mg Tablet) 25 mg PO BEDTIME PRN PRN PRN Reason: INSOMNIA Zinc Sulfate (Zinc Sulfate 220 Mg Cap) 220 mg PO DAILY [facility] Last Admin: 02/19/23 08:08 Dose: 220 mg Lab Results (last 24 hrs) 02/19/23 19:26: POC Glucose 344 H 02/19/23 16:24: POC Glucose 303 H 02/19/23 11:33: POC Glucose 250 H 02/19/23 10:30: Sodium Cancelled, Potassium Cancelled, Chloride Cancelled, Carbon Dioxide Cancelled, Anion Gap Cancelled, BUN Cancelled, Creatinine Ca ncelled, Est GFR (CKD-EPI) Cancelled, Glucose Cancelled, Calcium Cancelled, Magnesium Cancelled 02/19/23 10:30: WBC Cancelled, RBC Cancelled, Hgb Cancelled, Hct Cancelled, MCV Cancelled, MCH Cancelled, MCHC Cancelled, RDW Cancelled, Plt Count Cancelled, MPV Cancelled, Plt Distribution Width Cancelled, Absolute Nucleated RBC Cancelled, Neutrophils % Cancelled, Lymphocytes % Cancelled, Monocytes % Cancelled, Eosinophils % Cancelled, Basophils % Cancelled, Nucleated RBC % Cancelled, Absolute Neutrophils Cancelled, Absolute Lymphocytes Cancelled, Absolute Monocytes Cancelled, Absolute Eosinophils Cancelled, Absolute Basophils Cancelled, Diff Path Review Cancelled 02/19/23 06:57: Sodium 140, Potassium 4.3, Chloride 106, Carbon Dioxide 30, Anion Gap 8.3, BUN 76 H, Creatinine 1.87 H, Est GFR (CKD-EPI) 34 L, Glucose 121 H, Calcium 8.4 L, Phosphorus 3.9, Albumin 2.4 L 02/19/23 06:52: POC Glucose 116 Microbiology Results 02/13/23 17:20 Clean Catch Urine [place] Count - Final BETWEEN 10,000 & 100,000 CFU/ML 02/13/23 17:20 Clean Catch Urine - Final MIXED FERN. Assessment/ Plan: Nephrology No dyspnea No chest pain +PO No acute events overnight Vitals, medications, blood work and imaging reviewed in the chart General: In no apparent distress, Oriented x3, Cooperative HEENT: Atraumatic Neck: Supple Respiratory: Clear to auscultation bilaterally Cardiovascular: Regular rate/rhythm, LE Edema, Systolic murmur Gastrointestinal: Soft and benign, Non-distended Musculoskeletal: No clubbing, No contractures Integumentary: No rashes, No cyanosis Neurological: Normal speech Laboratory Data (last 24 hrs) 02/14/23 02/14/23 07:05 07:05 WBC 12.10 H Hgb 9.8 L Hct 28.5 L Plt Count 314 Sodium 137 Potassium 5.0 BUN 73 H Creatinine 2.07 H Glucose 284 H Magnesium 2.6 H Conclusions/Impression: Stage I CHARISSA CKD III -No NSAIDs Hyperkalemia -Reduce Veltessa Hypermagnesemia -Hold MagOx Orthostatic Hypotension -Continue Midodrine DM II with Polyneuropathy A1C 6 -Continue Gabapentin -RISS -Wean prednisone as tolerated Hypoalbuminemia -Continue Nepro Anemia in chronic illness -Monitor H&H -Continue oral iron -Retacrit prn Generalized muscle weakness Asthenia -PT as ordered
--- NOTE | 2023-02-19 23:01 | PN ---
Date of Progress Note: 02/19/2023 Time Of Service: 01:40 p.m. Subjective: Mr. Castellanos is sitting at side of bed. He is in no acute distress. He has no complaints a nd is happy with therapy so far. Review of Systems: No fevers or chills. No nausea, vomiting. No significant myalgias, arthralgias, rash. Physical Examination: Vital Signs: Blood pressure 123/59, pulse 69, respiratory rate 18, temperature 97.4, oxygen saturati on 97%. General: Mr. Castellanos is again sitting at side of bed, in no significant distress. Neuro: He has no focal deficits and his tremors which were reported were not noted. Outstretched stoddard nds held for 10 seconds, finger to nose did not elicit any tremors. Laboratory Studies: Blood sugars were elevated again from another wide range from 116 up to 344 afte r dinner. Albumin 2.4, calcium 8.4, sodium 140, potassium 4.3, chloride 106, BUN 76, creatinine 1.87 . X-ray Imaging, no new x-rays or imaging. Medications: The Renal Service is helping to manage medications including his management of diabetes mellitus. It is noted he is also on prednisone which has been cut to 10 mg daily and it can make th e sugars to be elevated. He is on Actos 30 mg daily and insulin sliding scale. Gabapentin has been decreased to 100 mg twice daily. There was possibility of some worsening tremor related to that and somnolence. Progress Made With Physical And Occupational Therapy: Today with physical therapy, bed mobility was done with turning and going sit to supine twice with contact guard assistance. In terms of mobilizat ion, he ambulated 250 feet twice, 275 feet with a rolling walker and contact guard assistance. He mo bilized a wheelchair 250 feet twice with rest break in between. With occupational therapy, he was ab le to demonstrate proper hand placement. He did sit to stand, completed 4 sets. Mr. Castellanos is making great progress with his physical and occupational therapy. He denies any new comp laints or any issues. Assessment: Mr. Castellanos is an 87-year-old patient in rehabilitation with diabetes mellitus and with tish al insufficiency, followed by the Renal Service. In addition, he has comorbidities of cardiomegaly. He was positive for COVID status post remdesivir. He has dyslipidemia, hypertension, hypothyroidism . Plan: 1.Continue physical, occupational, and speech therapy 3.5 hours, 5 of 7 days. 2.Blood sugars are managed by insulin and Actos and may be adjusted more especially if blood sugars continue to spike after eating. Otherwise, all comorbid condition medications are continued as indic ated. Comorbidities That Continue To Impact Rehabilitation: His blood sugars are now more wide ranging and may require adjustments. This should be done in consultation with the Renal Service. CHELA/ANA MARÍA Voice ID: [id number] Report ID: [id number]
[2023-02-20 03:07] LABS: Albumin 2.3 g/dL (3.4-5.0); Phosphorus 3.5 mg/dL (2.5-4.9); Potassium 4.2 mEq/L (3.5-5.1)
[2023-02-20] MEDS: LEVOTHYROXINE SOD 0.025 MG TAB PO SCH (06:19)
[2023-02-20] MEDS: LEVOTHYROXINE SOD 0.112 MG TAB PO SCH (06:19)
[2023-02-20] MEDS: INSULIN REGULAR (HUMAN) 100 UNIT/ML SQ SCH ×4 (07:30→20:28)
[2023-02-20] MEDS: NEPRO SHAKE 237 ML CAN PO SCH ×2 (08:00→20:27)
[2023-02-20] MEDS: FERROUS SULFATE 325 MG TAB PO SCH (08:24)
[2023-02-20] MEDS: FE SULF/FA/VIT B COMP & C TAB PO SCH (08:24)
[2023-02-20] MEDS: DOCOSAHEXANOIC AC/EPA 1000 MG PO SCH ×2 (08:24→20:27)
[2023-02-20] MEDS: ZINC SULFATE 220 MG CAP PO SCH (08:24)
[2023-02-20] MEDS: predniSONE 10 MG TAB PO SCH (08:25)
[2023-02-20] MEDS: CYANOCOBALAMIN 1,000 MCG TAB PO SCH (08:25)
[2023-02-20] MEDS: METOPROLOL TAR 25 MG TAB PO SCH ×2 (08:25→20:26)
[2023-02-20] MEDS: ASPIRIN 81 MG CHEWABLE TABLET PO SCH (08:25)
[2023-02-20] MEDS: PIOGLITAZONE 15 MG TAB PO SCH (08:26)
[2023-02-20] MEDS: MIDODRINE HCL 5 MG TABLET PO SCH (08:26)
[2023-02-20] MEDS: VITAMIN D 5,000 UNIT CAP PO SCH (08:26)
[2023-02-20] MEDS: GABAPENTIN 100 MG CAP PO SCH ×2 (08:26→20:27)
[2023-02-20] MEDS: DIGOXIN 0.125 MG TABLET PO SCH (08:27)
[2023-02-20] MEDS ORDERED: glipiZIDE 5 MG TAB ONE (14:18)
[2023-02-20] MEDS: glipiZIDE 5 MG TAB PO SCH ×2 (14:26→20:25)
[2023-02-20] MEDS: ENOXAPARIN 30 MG/0.3 ML SQ SCH (17:24)
[2023-02-20] MEDS: ATORVASTATIN 40 MG TAB PO SCH (20:27)
[2023-02-21 03:58] LABS: Albumin 2.3 g/dL (3.4-5.0); Phosphorus 3.7 mg/dL (2.5-4.9); Potassium 4.5 mEq/L (3.5-5.1)
[2023-02-21] MEDS: LEVOTHYROXINE SOD 0.025 MG TAB PO SCH (05:38)
[2023-02-21] MEDS: LEVOTHYROXINE SOD 0.112 MG TAB PO SCH (05:38)
[2023-02-21] MEDS: GABAPENTIN 100 MG CAP PO SCH ×2 (07:07→21:02)
[2023-02-21] MEDS: DOCOSAHEXANOIC AC/EPA 1000 MG PO SCH ×2 (07:07→21:01)
[2023-02-21] MEDS: PIOGLITAZONE 15 MG TAB PO SCH (07:07)
[2023-02-21] MEDS: DIGOXIN 0.125 MG TABLET PO SCH (07:07)
[2023-02-21] MEDS: glipiZIDE 5 MG TAB PO SCH ×2 (07:07→16:24)
[2023-02-21] MEDS: ASPIRIN 81 MG CHEWABLE TABLET PO SCH (07:07)
[2023-02-21] MEDS: METOPROLOL TAR 25 MG TAB PO SCH ×2 (07:08→20:00)
[2023-02-21] MEDS: FERROUS SULFATE 325 MG TAB PO SCH (07:08)
[2023-02-21] MEDS: FE SULF/FA/VIT B COMP & C TAB PO SCH (07:08)
[2023-02-21] MEDS: CYANOCOBALAMIN 1,000 MCG TAB PO SCH (07:08)
[2023-02-21] MEDS: VITAMIN D 5,000 UNIT CAP PO SCH (07:08)
[2023-02-21] MEDS: ZINC SULFATE 220 MG CAP PO SCH (07:08)
[2023-02-21] MEDS: predniSONE 10 MG TAB PO SCH (07:09)
[2023-02-21] MEDS: MIDODRINE HCL 5 MG TABLET PO SCH (07:09)
[2023-02-21] MEDS: NEPRO SHAKE 237 ML CAN PO SCH (07:17)
[2023-02-21] MEDS: INSULIN REGULAR (HUMAN) 100 UNIT/ML SQ SCH ×4 (07:56→21:01)
[2023-02-21] MEDS: ENOXAPARIN 30 MG/0.3 ML SQ SCH (16:25)
--- NOTE | 2023-02-21 20:58 | PN ---
Date of Progress Note: 02/21/2023 Time Of Service: 1:40 p.m. Subjective: Mr. Castellanos is sitting side of bed, therapist was in. He has no new complaints. He is doi ng very well with therapy. He said the food is better today. Review of Systems: No significant fevers, chills, nausea, vomiting, myalgias, arthralgias. Physical Examination: Vital Signs: Blood pressure 141/65, pulse 55, respiratory rate 16, temperature 96.8, oxygen saturati on 96%. General: Mr. Castellanos is sitting in the side of bed. HEENT: He is normocephalic, atraumatic. Sclerae anicteric. Oropharynx pink, moist. Neck: Supple. Chest: Clear. Heart: Regular. Neurologic: There are no focal neurological deficits. Laboratory Studies: Today, blood sugars were better than yesterday, but still slightly elevated and he had ranges from 156 up to 258, calcium 8.4, creatinine 1.8, BUN 70, carbon dioxide 30, chloride 10 5, potassium 4.5, sodium 139, albumin 2.3. X-ray/imaging: No new x-rays or imaging. Medications: Aspirin 81 mg daily, Lipitor 40 mg at bedtime, vitamin D 5000 units daily, vitamin B12 1000 mcg daily, Lanoxin 0.125 mg daily, Lovenox 30 mg subcutaneously daily, Nepro shake 237 mL twice daily, ferrous sulfate 325 mg daily, fish oil 1000 mg daily, gabapentin 100 mg twice daily, glipizide 2.5 mg twice daily, he is on insulin sliding scale, Synthroid 0.137 mg daily, melatonin 3 mg at bedt tomás, Lopressor 12.5 mg twice daily, midodrine 5 mg daily, Hemocyte Plus 1 tablet daily, Actos 30 mg d aily, prednisone cut down to 5 mg daily, senna-S 2 tablets twice daily, trazodone 25 mg at bedtime, a nd zinc sulfate 220 mg daily. Progress Made With Physical And Occupational Therapy: Today, he performs supine to sit transfers ind ependently, sit to stand transfers independently. He ambulated 200 feet and 300 feet with standby as sistance using a rolling walker. He ascended and descended 15 steps with bilateral handrails indepen dently. With occupational therapy, he did engage in upper body exercises with 3-pound dowel celeste and 15 steps to improve his strength. Mr. Castellanos is doing very well. He is ready for discharge home as he is achieving his goals for physica l and occupational therapy. Assessment: Mr. Castellanos is an 87-year-old patient in the rehabilitation unit with diabetes mellitus wit h uncontrolled blood sugars, renal insufficiency, cardiomegaly, positive COVID, status post remdesivi r, dyslipidemia, hypertension, hypothyroidism. Plan: 1.Continue with physical and occupational therapy for 3 hours a day, 5 of 7 days. 2.Blood sugars are slightly better as he is now on 2 oral hypoglycemic medications. He is followed by the Renal Service for his renal insufficiency. 3.Hypertension and hypothyroidism, all addressed by medications as noted above. Comorbidities That Continue To Impact Rehabilitation: His blood sugars are still suboptimally manage d and will need to be adjusted on an outpatient basis and he will be followed by primary care physici an and Renal Service. CHELA/ANA MARÍA Voice ID: [id number] Report ID: [id number]
[2023-02-21] MEDS: ATORVASTATIN 40 MG TAB PO SCH (21:01)
--- NOTE | 2023-02-21 21:35 | P.PN ---
Date of Service: 02/21/23 Vital Signs Temp Pulse Resp BP Pulse Ox 96.8 F 62 16 112/53 L 96 02/21/23 06:45 02/21/23 20:00 02/21/23 06:45 02/21/23 20:00 02/21/23 06:45 Medications Aspirin (Aspirin 81 Mg Chewable Tablet) 81 mg PO DAILY [facility] Last Admin: 02/21/23 07:07 Dose: 81 mg Atorvastatin Calcium (Atorvastatin 40 Mg Tab) 40 mg PO BEDTIME [facility] Last Admin: 02/21/23 21:01 Dose: 40 mg Cholecalciferol (Vitamin D 5,000 Unit Cap) 5,000 unit PO DAILY [facility] Last Admin: 02/21/23 07:08 Dose: 5,000 unit Cyanocobalamin (Cyanocobalamin 1,000 Mcg Tab) 1,000 mcg PO DAILY [facility] Last Admin: 02/21/23 07:08 Dose: 1,000 mcg Digoxin (Digoxin 0.125 Mg Tablet) 0.125 mg PO DAILY [facility] Last Admin: 02/21/23 07:07 Dose: 0.125 mg Enoxaparin Sodium (Enoxaparin 30 Mg/0.3 Ml) 30 mg SQ DAILY 5 PM [facility] Last Admin: 02/21/23 16:25 Dose: 30 mg Enteral Nutritional Formula (Nepro Shake 237 Ml Can) 237 ml PO BID [facility] Last Admin: 02/21/23 07:17 Dose: 237 ml Ferrous Sulfate (Ferrous Sulfate 325 Mg Tab) 325 mg PO DAILY [facility] Last Admin: 02/21/23 07:08 Dose: 325 mg Fish Oil (Docosahexanoic Ac/Epa 1000 Mg) 1,000 mg PO BID [facility] Last Admin: 02/21/23 21:01 Dose: 1,000 mg Gabapentin (Gabapentin 100 Mg Cap) 100 mg PO BID [facility] Last Admin: 02/21/23 21:02 Dose: 100 mg Glipizide (Glipizide 5 Mg Tab) 2.5 mg PO BIDWM [facility] Last Admin: 02/21/23 16:24 Dose: 2.5 mg Glucagon (Glucagon 1 Mg/Vial) 1 mg IM 1X PRN; Protocol PRN Reason: HYPOGLYCEMIA Home Med (Veltassa 8.4gram) 1 packet PO MO,FR [facility] Last Admin: 02/19/23 20:04 Dose: 1 packet Dextrose (Dextrose 10% Water Iv Soln.) 125 mls @ 0 mls/hr IV PRN PRN; Protocol PRN Reason: HYPOGLYCEMIA Insulin Human Regular (Insulin Regular (Human) 100 Unit/Ml) 0 unit SQ ACHS [facility]; Protocol Last Admin: 02/21/23 21:01 Dose: 5 unit Levothyroxine Sodium (Levothyroxine Sod 0.112 Mg Tab) 0.112 mg PO DAILYAC [facility] Last Admin: 02/21/23 05:38 Dose: 0.112 mg Levothyroxine Sodium (Levothyroxine Sod 0.025 Mg Tab) 0.025 mg PO DAILYAC [facility] Last Admin: 02/21/23 05:38 Dose: 0.025 mg Melatonin (Melatonin 3 Mg Tablet) 3 mg PO BEDTIME PRN PRN PRN Reason: INSOMNIA Metoprolol Tartrate (Metoprolol Tar 25 Mg Tab) 12.5 mg PO BID [facility] Last Admin: 02/21/23 20:00 Dose: Not Given Midodrine (Midodrine Hcl 5 Mg Tablet) 5 mg PO DAILY [facility] Last Admin: 02/21/23 07:09 Dose: 5 mg Multivitamins/Iron (Fe Sulf/Fa/Vit B Comp & C Tab) 1 tab PO DAILY WITH BREAKFAST [facility] Last Admin: 02/21/23 07:08 Dose: 1 tab Pioglitazone HCl (Pioglitazone 15 Mg Tab) 30 mg PO DAILY WITH BREAKFAST [facility] Last Admin: 02/21/23 07:07 Dose: 30 mg Prednisone (Prednisone 5 Mg Tab) 5 mg PO DAILY [facility] Senna/Docusate Sodium (Docusate Na/Senna Conc 1 Tab) 2 tab PO BID PRN PRN Reason: CONSTIPATION Tizanidine HCl (Tizanidine 4 Mg Tablet) 4 mg PO TID PRN PRN Reason: MUSCLE SPASMS Trazodone HCl (Trazodone 50 Mg Tablet) 25 mg PO BEDTIME PRN PRN PRN Reason: INSOMNIA Zinc Sulfate (Zinc Sulfate 220 Mg Cap) 220 mg PO DAILY [facility] Last Admin: 02/21/23 07:08 Dose: 220 mg Lab Results (last 24 hrs) 02/21/23 19:45: POC Glucose 245 H 02/21/23 16:07: POC Glucose 258 H 02/21/23 11:04: POC Glucose 157 H 02/21/23 07:00: POC Glucose 156 H 02/21/23 03:12: Sodium 139, Potassium 4.5, Chloride 105, Carbon Dioxide 30, Anion Gap 8.5, BUN 70 H, Creatinine 1.80 H, Est GFR (CKD-EPI) 36 L, Glucose 166 H, Calcium 8.4 L, Phosphorus 3.7, Albumin 2.3 L Microbiology Results 02/13/23 17:20 Clean Catch Urine [place] Count - Final BETWEEN 10,000 & 100,000 CFU/ML 02/13/23 17:20 Clean Catch Urine - Final MIXED FERN. Assessment/ Plan: Nephrology No dyspnea No chest pain +PO No acute events overnight Vitals, medications, blood work and imaging reviewed in the chart General: In no apparent distress, Oriented x3, Cooperative HEENT: Atraumatic Neck: Supple Respiratory: Clear to auscultation bilaterally Cardiovascular: Regular rate/rhythm, LE Edema, Systolic murmur Gastrointestinal: Soft and benign, Non-distended Musculoskeletal: No clubbing, No contractures Integumentary: No rashes, No cyanosis Neurological: Normal speech Laboratory Data (last 24 hrs) 02/14/23 02/14/23 07:05 07:05 WBC 12.10 H Hgb 9.8 L Hct 28.5 L Plt Count 314 Sodium 137 Potassium 5.0 BUN 73 H Creatinine 2.07 H Glucose 284 H Magnesium 2.6 H Conclusions/Impression: Stage I CHARISSA CKD III -No NSAIDs Hyperkalemia -Continue Veltessa Hypermagnesemia -Hold MagOx Orthostatic Hypotension -Continue Midodrine DM II with Polyneuropathy A1C 6 -Continue Gabapentin -RISS -Wean prednisone as tolerated Hypoalbuminemia -Continue Nepro Anemia in chronic illness -Monitor H&H -Continue oral iron -Retacrit prn Generalized muscle weakness Asthenia -PT as ordered
[2023-02-22] MEDS: LEVOTHYROXINE SOD 0.112 MG TAB PO SCH (05:16)
[2023-02-22] MEDS: LEVOTHYROXINE SOD 0.025 MG TAB PO SCH (05:16)
[2023-02-22 06:46] LABS: Absolute Lymphocytes (CBC) 1.4 K/uL (0.7-4.9); Lymphocytes % 16.6 % (15.3-44.8); MCV 99.8 fL (80-100); Platelets 212 thou/uL (152-406); RBC Red Blood Cell Count 2.71 M/uL (4.33-5.43)
[2023-02-22 07:07] LABS: Albumin 2.4 g/dL (3.4-5.0); Magnesium 2.2 mg/dL (1.6-2.4); Phosphorus 3.5 mg/dL (2.5-4.9); Potassium 4.5 mEq/L (3.5-5.1); Prealbumin 14.6 mg/dL (20-40)
[2023-02-22] MEDS: INSULIN REGULAR (HUMAN) 100 UNIT/ML SQ SCH ×4 (07:30→20:10)
[2023-02-22] MEDS: CYANOCOBALAMIN 1,000 MCG TAB PO SCH (08:18)
[2023-02-22] MEDS: FE SULF/FA/VIT B COMP & C TAB PO SCH (08:18)
[2023-02-22] MEDS: MIDODRINE HCL 5 MG TABLET PO SCH (08:18)
[2023-02-22] MEDS: ZINC SULFATE 220 MG CAP PO SCH (08:18)
[2023-02-22] MEDS: DOCOSAHEXANOIC AC/EPA 1000 MG PO SCH ×2 (08:18→20:11)
[2023-02-22] MEDS: DIGOXIN 0.125 MG TABLET PO SCH (08:18)
[2023-02-22] MEDS: FERROUS SULFATE 325 MG TAB PO SCH (08:18)
[2023-02-22] MEDS: ASPIRIN 81 MG CHEWABLE TABLET PO SCH (08:18)
[2023-02-22] MEDS: VITAMIN D 5,000 UNIT CAP PO SCH (08:19)
[2023-02-22] MEDS: PIOGLITAZONE 15 MG TAB PO SCH (08:19)
[2023-02-22] MEDS: GABAPENTIN 100 MG CAP PO SCH ×2 (08:19→20:11)
[2023-02-22] MEDS: predniSONE 5 MG TAB PO SCH (08:20)
[2023-02-22] MEDS: glipiZIDE 5 MG TAB PO SCH ×2 (08:20→16:52)
[2023-02-22] MEDS: METOPROLOL TAR 25 MG TAB PO SCH ×3 (08:20→20:11)
[2023-02-22] MEDS: ENOXAPARIN 30 MG/0.3 ML SQ SCH (16:52)
[2023-02-22] MEDS: ATORVASTATIN 40 MG TAB PO SCH (20:11)
--- NOTE | 2023-02-22 21:46 | PN ---
Date of Progress Note: 02/22/2023 Time Of Service: 1:35 p.m. Subjective: Mr. Castellanos is resting in bed. He is happy with his therapy. He is looking for going home in the morning. Appetite is better. Review of Systems: No fevers, chills, nausea, vomiting, myalgias, arthralgias, rash, headache, weight change. Physical Examination: Vital Signs: Blood pressure 130/58, pulse 68, respiratory rate 18, temperature 97.1, oxygen saturati on 96%. General: Mr. Castellanos is resting in bed. HEENT: He is normocephalic, atraumatic. Sclerae anicteric. Oropharynx pink and moist. Neck: Supple. Chest: Clear. Heart: Regular. Extremities: Show no edema, cyanosis, or clubbing. Neurological: No focal neurological deficits. Laboratory Studies: White blood cell count 8.4, hemoglobin 9.3, platelets 212. Sodium 140, potassiu m 4.5, chloride 107, carbon dioxide 30, BUN 66, creatinine 1.93. Glucose ranged from 92 to 324 after dinner. Prealbumin 14.6, albumin 2.4. X-ray/imaging: No new x-rays or imaging. The patient is followed by Dr. Brice on [facility]. Medications: Medications have been reviewed and his prednisone is cut down to 5 mg daily. Progress Made With Physical And Occupational Therapy: Today, he ambulated 300 feet and 250 feet inde pendently using the rolling walker. He was able to ascend and descend 15 steps with bilateral handra ils, independently. [id number] and transfers done independently. Occupational therapy: Independe nt with walker from bed to toilet and within his room. Toileting and bathing were independent. Uppe r body dressing and lower body dressing all independent. Moving independent. Mr. Castellanos made excellent progress with physical and occupational therapy, and is ready for discharge h ome. Assessment: Mr. Castellanos is an 87-year-old patient with diabetes mellitus, still difficult to control an d in the rehabilitation unit with debility, for which he has recovered very well. He has chronic tish al insufficiency, cardiomegaly, and positive for COVID, was treated with remdesivir. He has dyslipid emia, hypertension, hypothyroidism, again is followed by the Renal Service. Plan: 1.Continue with physical and occupational therapy for 3 hours a day, 5/7 days. 2.His oral hyperglycemic medications may have to be adjusted as he is being discharged tomorrow on a n outpatient basis. Other comorbid condition medications are continued unchanged. Comorbidities That Continue To Impact Rehabilitation: His blood sugars still remain suboptimally man aged and will have to have adjustments made after discharge and he will follow up with Dr. Brice p [facility] physician and obstetrician/gynecologist. CHELA/ANA MARÍA Voice ID: [id number] Report ID: [id number]
[2023-02-23] MEDS: INSULIN REGULAR (HUMAN) 100 UNIT/ML SQ SCH (07:30)
[2023-02-23] MEDS: LEVOTHYROXINE SOD 0.025 MG TAB PO SCH (07:31)
[2023-02-23] MEDS: LEVOTHYROXINE SOD 0.112 MG TAB PO SCH (07:31)
[2023-02-23] MEDS: MIDODRINE HCL 5 MG TABLET PO SCH (07:31)
[2023-02-23] MEDS: ASPIRIN 81 MG CHEWABLE TABLET PO SCH (07:35)
[2023-02-23] MEDS: FE SULF/FA/VIT B COMP & C TAB PO SCH (07:35)
[2023-02-23] MEDS: CYANOCOBALAMIN 1,000 MCG TAB PO SCH (07:35)
[2023-02-23] MEDS: PIOGLITAZONE 15 MG TAB PO SCH (07:35)
[2023-02-23] MEDS: ZINC SULFATE 220 MG CAP PO SCH (07:35)
[2023-02-23] MEDS: GABAPENTIN 100 MG CAP PO SCH (07:36)
[2023-02-23] MEDS: DIGOXIN 0.125 MG TABLET PO SCH (07:36)
[2023-02-23] MEDS: predniSONE 5 MG TAB PO SCH (07:36)
[2023-02-23] MEDS: glipiZIDE 5 MG TAB PO SCH (07:36)
[2023-02-23] MEDS: FERROUS SULFATE 325 MG TAB PO SCH (07:36)
[2023-02-23] MEDS: DOCOSAHEXANOIC AC/EPA 1000 MG PO SCH (07:36)
[2023-02-23] MEDS: VITAMIN D 5,000 UNIT CAP PO SCH (07:36)
[2023-02-23] MEDS: METOPROLOL TAR 25 MG TAB PO SCH (07:37)
[2023-02-23 07:40] VITALS: BP 124/56
[2023-02-23 07:59] LABS: Albumin 2.3 g/dL (3.4-5.0); Phosphorus 3.6 mg/dL (2.5-4.9); Potassium 4.4 mEq/L (3.5-5.1)
[2023-02-23 09:04] VITALS: TEMP 97.6
[2023-02-23] MEDS ORDERED: VELTASSA 8.4 GM PO SCH ×2 (17:00)
--- NOTE | 2023-03-05 22:18 | DS ---
Date of Discharge: 02/23/2023 Discharge Diagnoses: Debility, noncardiac, nonpulmonary, diabetes mellitus, chronic kidney disease, COVID-19 positivity, status post remdesivir, hypertension, hypothyroidism, metabolic acidosis, atrial fibrillation, status post ablation, microcytic anemia. Discharge Condition: Good. Activity: Weightbearing as tolerated. Diet: Heart healthy. Followup: With the Renal Service, Dr. Brice and primary care physician as scheduled. Medications: Veltassa 8.4 mg Sunday, Sunday, Sunday, [place]-3 fish oil 1000 mg twice daily, midodr ine 5 mg 3 times daily, metoprolol 12.5 mg twice daily, magnesium oxide 400 mg twice daily, Synthroid 137 mcg daily, iron supplementation 18 mg daily, Lanoxin 1 tablet daily, vitamin B12 1000 mcg daily, vitamin D3 125 mcg daily, Lipitor 40 mg at bedtime, aspirin 81 mg daily, vitamin C 500 mg daily, pre dnisone 5 mg daily, glipizide 2.5 mg twice daily, zinc sulfate 220 mg daily, Actos 30 mg daily with b reakfast, Nepro 237 mL twice daily, ferrous sulfate 1 tablet daily, and gabapentin 100 mg twice daily . Allergies: PENICILLIN. Laboratory Studies: White blood cell count 8.4, hemoglobin 9.3, platelets 212. Sodium 139, potassiu m 4.4, chloride 105, carbon dioxide 31, BUN 56, creatinine 1.83, glucose ranged from 130 to 222, calc ium 8.3, phosphorus 3.6, albumin 2.3. X-ray/imaging: No new x-rays or imaging and noted the patient was followed by the Renal Service Dr. Brice while hospitalized. Synopsis Of Events That Led To Admission: Mr. Castellanos is an 87-year-old patient with multiple medical p roblems as noted above, who presented to [facility] in January after family found him unresponsive on the floor. Blood sugars were in the low 40s. He received IV D50 and his altered mental status did impro ve. He was found to be positive for COVID-19 and received remdesivir in addition to multivitamins in cluding vitamin D, zinc, and ascorbic acid. He was treated with Amaryl for diabetes and Actos, and t hose were held until his blood sugars did improve. He also was put on midodrine for pressure support . He did have metabolic acidosis with stage 3 kidney disease and was followed by the Renal Service. As a result of the patient's condition, multiple medical problems, and significant debility, he was determined to be an appropriate candidate for inpatient rehabilitation and is therefore admitted for physical, occupational, speech therapy. Hospital Course: Throughout hospitalization, he was followed by the Renal Service. He maintained an afebrile status. His white blood cell count did show slight elevation on admission at 12.1 with dig level at 83. However, all subsequent recordings were normal. He did have fluid management with res triction and diuretic and again followed by the Renal Service. All medications were continued. His urinalysis was unremarkable. Progress Made With Physical, Occupational, And Speech Therapy: By discharge regarding physical thera py, his bed mobility was just standby. Gait, he covered 300 feet with normal functional limits, did have poor balance. Steps, he covered 15 steps, excellent balance. Chair mobilization, he covered 25 0 feet with modified independence. He did meet all of his short-term and long-term goals and was dis charged home. All durable medical equipment needs met and continue with home health for physical the rapy. Regarding occupational therapy, eating independent, grooming independent, bathing independent, toileting and toilet transfers independent, lower body dressing independent, donning and doffing mohan es independent. Again, all short-term and long-term goals for occupational therapy were met. The alicia yong actually had graduated out of speech therapy and did well early on. Followup: With the Renal Service and primary care physician as scheduled. CHELA/ANA MARÍA Voice ID: [id number] Report ID: [id number]
== END 2023-02-23 11:24 | disposition home health service (06) | DRG 947 ==
LOC: 5TH 15:35
PROVIDERS: ADMIT Psychiatry & Neurology Neurology with Special Qualifications in Child Neurology; ATTEND Psychiatry & Neurology Neurology with Special Qualifications in Child Neurology
DX: R53.81 Other malaise (principal); U07.1 COVID-19; E87.20 Acidosis, unspecified; I48.19 Other persistent atrial fibrillation; N17.9 Acute kidney failure, unspecified; E11.649 Type 2 diabetes mellitus with hypoglycemia without coma; I12.9 Hypertensive chronic kidney disease with stage 1 through stage 4 chronic kidney disease, or unspecified chronic kidney disease; E11.22 Type 2 diabetes mellitus with diabetic chronic kidney disease; N18.30 Chronic kidney disease, stage 3 unspecified; E11.42 Type 2 diabetes mellitus with diabetic polyneuropathy; I95.1 Orthostatic hypotension; E88.09 Other disorders of plasma-protein metabolism, not elsewhere classified; E83.41 Hypermagnesemia; R53.1 Weakness; I51.7 Cardiomegaly; E87.5 Hyperkalemia; E78.5 Hyperlipidemia, unspecified; E03.9 Hypothyroidism, unspecified; D63.8 Anemia in other chronic diseases classified elsewhere; K57.90 Diverticulosis of intestine, part unspecified, without perforation or abscess without bleeding; M19.90 Unspecified osteoarthritis, unspecified site; G47.33 Obstructive sleep apnea (adult) (pediatric); Z95.1 Presence of aortocoronary bypass graft; Z66 Do not resuscitate
CPT/HCPCS: 36415; 80048; 80053; 80069; 81001; 82040; 82947; 83735; 84100; 84134; 84550; 85025; 87086; 87088; 97110; 97112; 97116; 97163; 97165; 97530; 97542; J1650; J1815; J7512; Q5106

== ENCOUNTER 2023-05-29 11:36 | Inpatient (IN) | payer OTHER ==
[2023-05-29 21:27] VITALS: BMI 21.5
[2023-05-29] MEDS ORDERED: GLUCAGON 1 MG/VIAL IM PRN (21:33)
[2023-05-29] MEDS ORDERED: D50W 25 GM/50 ML SYRINGE IV PRN (21:33)
[2023-05-29] MEDS ORDERED: D10W 125 ML IV PRN (21:39)
[2023-05-29 21:46] LABS: Specific Gravity 1.007 (1.005-1.030); Sqamous Epithelial None Seen /HPF (None Seen); Urine Bacteria None Seen /HPF (<20); Urine Bilirubin NEGATIVE (Negative); Urine Blood Negative (Negative); Urine Clarity Clear (Clear); Urine Color Colorless (Yellow); Urine Culture Reflex Order NOT NEEDED; Urine Glucose 2+ (Negative); Urine Ketones NEGATIVE (Negative); Urine Micro Reflex YN NO BILL MICROSCOPIC; Urine Nitrite NEGATIVE (Negative); Urine Protein NEGATIVE (Negative); Urine RBC <5 /HPF (None Seen); Urine Urobilinogen Normal (Normal); Urine WBC <5 /HPF (<5)
[2023-05-29] MEDS ORDERED: MELATONIN 5 MG TABLET PO ONE (22:33)
[2023-05-29] MEDS: MELATONIN 5 MG TABLET PO SCH (22:35)
[2023-05-30 04:45] LABS: Absolute Eosinophils 0.2 K/uL (0-0.5); Absolute Lymphocytes (CBC) 1.5 K/uL (0.7-4.9); Absolute Monocytes 0.8 K/uL (0.1-1.3); Absolute Neutrophil 3.6 K/uL (1.8-8.0); Basophils % 0.6 % (0-1.3); Eosinophils % 3.3 % (0-4.4); Hematocrit 27.8 % (39.6-49.0); Hemoglobin 9.7 g/dL (13.6-17.9); Lymphocytes % 24.1 % (15.3-44.8); MCH 34.2 pg (27.0-35.0); MCHC 34.9 g/dL (32.0-36.0); MPV 7.5 fL (7.6-11.3); Monocytes % 12.3 % (3.3-12.3); Neutrophils % 59.7 % (41.7-73.7); Nucleated Red Blood Cells % 0.1 % (0-0); Platelets 242 thou/uL (152-406); RBC Red Blood Cell Count 2.84 M/uL (4.33-5.43); Red Cell Distribution Width 14.4 % (12.1-15.2)
[2023-05-30 04:59] LABS: Albumin 2.5 g/dL (3.4-5.0); Magnesium 1.9 mg/dL (1.6-2.4); Prealbumin 14.1 mg/dL (20-40)
[2023-05-30] MEDS ORDERED: GLUCAGON 1 MG/VIAL IM PRN (06:07)
[2023-05-30] MEDS ORDERED: D50W 25 GM/50 ML SYRINGE IV PRN (06:07)
[2023-05-30] MEDS: LEVOTHYROXINE SOD 0.112 MG TAB PO SCH (06:33)
[2023-05-30] MEDS: LEVOTHYROXINE SOD 0.025 MG TAB PO SCH (06:33)
[2023-05-30] MEDS ORDERED: INSULIN REGULAR (HUMAN) 100 UNIT/ML SQ SCH (07:30)
[2023-05-30] MEDS: INSULIN REGULAR (HUMAN) 100 UNIT/ML SQ SCH (07:30)
[2023-05-30] MEDS: CYANOCOBALAMIN 1,000 MCG TAB PO SCH (07:50)
[2023-05-30] MEDS: GABAPENTIN 300 MG CAP PO SCH (07:50)
[2023-05-30] MEDS: FERROUS SULFATE 325 MG TAB PO SCH (07:50)
[2023-05-30] MEDS: MIDODRINE HCL 5 MG TABLET PO SCH ×3 (07:50→17:10)
[2023-05-30] MEDS: VITAMIN D 5,000 UNIT CAP PO SCH (07:51)
[2023-05-30] MEDS: ASCORBIC ACID 500 MG TABLET PO SCH (07:51)
[2023-05-30] MEDS: MAGNESIUM OXIDE 400 MG TAB PO SCH (07:51)
[2023-05-30] MEDS: METOPROLOL TAR 25 MG TAB PO SCH (08:00)
[2023-05-30] MEDS ORDERED: MIDODRINE HCL 5 MG TABLET PO SCH (08:00)
[2023-05-30] MEDS: PATIROMER 8.4 GM PO SCH (17:00)
--- NOTE | 2023-05-30 20:16 | HP ---
Date of Admission: 05/29/2023 Chief Complaint: Fall, head injury. History Of Present Illness: This is an 88-year-old male patient, who lives at home, fell down at avery e sometime during nighttime and next day morning when caregiver went to his house, found him on the f jordan and she called ambulance and he was taken to [facility] Emergency room, from where h hedy was transferred to [facility] because of bleeding that was found on the CAT scan of the head. While i n [place], he did not require any surgical intervention. The patient's condition was stable. He was transferred to our inpatient rehab last night and I saw him this morning. The patient denies any co mplaints. Allergies: TO PENICILLIN AND THE PATIENT DESCRIBES REACTION HE PASSED OUT. Medications: Aspirin 81 mg daily, atorvastatin 40 mg daily, Bumex 0.5 mg daily, clopidogrel 75 mg da sonia, glimepiride 4 mg 2 times a day, metoprolol succinate 50 mg daily, midodrine 2.5 mg 3 times a day , levothyroxine 137 mcg daily. This is his medication list according to outpatient office record. Linnea espinoza medication list reviewed. Review of Systems: BUDGET ACCOUNTANT: Fall, head injury, and bruising. Constitutional: Generalized weakness. All other systems reviewed and negative. Past Medical History: Significant for peripheral neuropathy, cataract, hypothyroidism, type 2 diabet es mellitus, obstructive sleep apnea, hypertension, orthostatic hypotension, hyperlipidemia, coronary artery disease, paroxysmal atrial fibrillation, aortic stenosis, bilateral carotid artery stenosis, diverticulosis, chronic kidney disease, compression fracture of lumbar spine, osteoarthritis at multi ple sites, iron deficiency anemia and anemia due to chronic kidney disease, myelodysplastic syndrome, and insomnia. Past Surgical History: Cataract surgery, coronary artery bypass surgery in 2004, pacemaker placement in 2020, Watchman's procedure in 2021, inguinal hernia repair in the past. Family History: Not pertinent. Social History: Negative for smoking and alcohol use. Physical Examination: Vital Signs: This morning, temperature 97.8, pulse 73, respiratory rate 17, blood pressure 114/59, o xygen saturation 98% on room air. Height 5 feet 9 inches, weight 146 pounds. General: Awake, alert, oriented, not in distress. HEENT: Head atraumatic, normocephalic. Conjunctivae nonerythematous. Sclerae white. Mouth, no thr ush or edema noted. Ears/Nose, no mass, lesion, discharge noted. Face: Face examination shows extensive bruising around the left eye and on left side of the face as well as left side of the neck. The patient has small hematoma in the left frontal and forehead regio n, which is approximately 3 cm in size or so. Neck: Supple. No JVD, lymph nodes, bruit, thyromegaly noted. Lungs: Bilateral good equal air entry. Clear to auscultation. No rhonchi. No rales. Heart: Normal heart sounds, no murmur or gallop. Abdomen: Soft, bowel sounds normal. No guarding, rigidity, tenderness, mass, hepatosplenomegaly, dis tention, or bruit noted. Extremities: No leg edema. No calf tenderness. Skin: No rash, ulcer, cellulitis. Lymphatics: No lymph node enlargement in neck, supraclavicular, infraclavicular region. Neuro: No focal neurological deficit, but the patient has significant generalized weakness. He is a ble to raise both lower extremity against gravity at about 45 degrees with some difficulty. Chest: Unremarkable. External Genitalia: Deferred. Rectal: Deferred. Laboratory Data: White count 6.10, hemoglobin 9.7, platelets 242. Sodium 141, potassium 4, chloride 110, bicarb 29, BUN 40, creatinine 1.50, estimated GFR 44, glucose 146, magnesium 1.9, albumin 2.5. Urinalysis negative. Impression: 1.Subdural hematoma, status post fall and head injury at home. 2.Contusion, left face. 3.Chronic kidney disease, stage IIIB. 4.Orthostatic hypotension. 5.Anemia due to chronic kidney disease. 6.Anemia due to iron deficiency. 7.Hypertension. 8.Hyperlipidemia. 9.Hypothyroidism. 10.Peripheral neuropathy. 11.Type 2 diabetes mellitus. 12.Diverticulosis. 13.Obstructive sleep apnea. 14.Osteoarthritis, multiple sites. 15.Myelodysplastic syndrome. 16.Insomnia. Plan: We will go ahead and admit the patient to hospital for further evaluation and management of th is problem. The patient will be admitted to rehab floor. Dr. Le from rehab will manage the [place]'s physical therapy and I will continue to manage his medical problems. For his orthostatic hyp otension, he takes midodrine at home, which we will continue that and order was written to give midod rine at 7 a.m., 12 noon, and 5 p.m. We will go ahead and continue his cholesterol medication which i s atorvastatin per order. For diabetes, we will monitor fingerstick blood sugar and manage that with insulin per order. For hypothyroidism, we will continue his levothyroxine per order. Details and p herminia of treatment discussed with the patient. I will see him tomorrow for followup. We will monitor his blood pressure for orthostatic changes and depending on that, we will make decision whether we ne ed to make adjustment on midodrine or not. NA/MODL Voice ID: [id number]
[2023-05-30] MEDS: ATORVASTATIN 40 MG TAB PO SCH (20:21)
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
[2023-05-31] MEDS: MIDODRINE HCL 5 MG TABLET PO SCH ×3 (07:02→17:09)
--- NOTE | 2023-05-31 22:50 | PN ---
Date of Progress Note: 05/31/2023 Time Of Service: 1:10 p.m. Subjective: Mr. Castellanos is resting in bed in between therapy sessions. He is happy with therapy so far . He says pain does get up to about 5/10 when he is mobilizing. When in bed, around 1 to 2/10 and p ain at the left frontal area where there is a hematoma and some in the neck, left arm as well. Review of Systems: No fevers, chills, myalgias, arthralgias. No rash. No psychiatric complaints. No chasity headaches o r any focal deficits. Physical Examination: Vital Signs: Blood pressure 112/56, pulse 86, respiratory rate 16, temperature 97.4, oxygen saturati on 94%. Orthostatics, sitting blood pressure 106/58, pulse 120. When standing, blood pressure dropp ed to 85/55, pulse did go down to 95, mildly symptomatic. HEENT: Otherwise again, hematoma noted on the left forehead, bruising on the left neck, left arm, tr unk, and leg area. No focal deficits. He has giveaway due to pain. Stocking-glove loss sensation. Laboratory Studies: No new laboratory studies compared to yesterday. White blood cell count 6.0, he moglobin 9.7, platelets 242. His blood glucose ranged from 141 to 249. Urinalysis shows 2+ glucose, otherwise normal. X-ray/imaging: No new x-rays or imaging. Medications: His medications have been reviewed. He is taking Tylenol 1000 mg every 8 hours as need ed, vitamin C 500 mg daily, aspirin 81 mg daily, Lipitor 40 mg at bedtime, vitamin D 5000 units daily , vitamin B12 1000 mcg daily, ferrous sulfate 325 mg daily, gabapentin 300 mg twice daily, Synthroid 0.137 mg daily, magnesium oxide 400 mg twice daily, melatonin 10 at bedtime, midodrine 5 mg in the af ternoon. Progress Made With Physical, Occupational, And Speech Therapy: Today with physical therapy, complete d bed mobilization with minimum assistance. Cgaewj-yj-jos also minimum assistance. Dlk-tt-ibfmu tra nsfers with minimum assistance to contact guard assistance. He ambulated 175 feet with a rolling wal ker with minimum assistance. Bilateral lower extremities are almost buckling while he was doing so. Completed an additional 85 feet, ambulation with minimal assistance. Propel a wheelchair 200 feet w ith contact guard assistance, was able to go up and down 15 steps with physical therapists and contac t guard assistance. With speech therapy, named an average of 9 items for 1 minute during a divergent naming task. Recall 2/3 unrelated pictures after 5 minutes on the first attempt and 3/3 on second a ttempt. Mr. Castellanos is making good progress despite his fall and bleeding on the head. Those are not limiting h im in any significant way. Assessment: Mr. Castellanos is an 88-year-old patient admitted to the rehabilitation unit with traumatic cl osed head injury. There is a left frontal convexity traumatic subdural hematoma and an external clot in the left forehead. He has anemia, coronary artery disease, atrial fibrillation, chronic kidney d isease, decreased mobility, decreased physical function, dyslipidemia, hypertension, hyponatremia, or thostatic hypotension, obstructive sleep apnea, and recurrent falls. Plan: 1.Continue with physical, occupational, and speech therapy 3.5 hours, 5 of 7 days. 2.There are multiple medications, which are listed above. We will continue those medications includ ing gabapentin for neuropathic pain, Synthroid for hypothyroidism, ferrous sulfate for anemia, Lipito r for dyslipidemia, Tylenol as needed for pain. Comorbidities That Are Impacting His Rehabilitation: The subdural hematoma is present and there is a possibility of it expanding and so he will be looked for signs of focal neurological deficits such a s face, arm, leg numbness, weakness, asymmetry of pupillary size and reactivity, double vision, worse hank gait, coordination balance. Repeat scan may be done and if need be, patient will be transferred for higher level of care depending on the results of the study and his clinical findings. CHELA/ANA MARÍA Voice ID: [id number] Report ID: [id number]
--- NOTE | 2023-05-31 23:56 | PN ---
Date of Progress Note: 05/31/2023 Subjective: The patient was seen this morning for followup. He was lying in bed, not in distress. No new complaints or problems reported. Objective: Vital Signs: Reviewed. HEENT: Unchanged with evidence of small hematoma and contusion over the left side of the face and ne ck. Lungs: Clear to auscultation. Heart: Sounds normal. Abdomen: Soft. Bowel sounds normal. No guarding, rigidity, tenderness, distention. Extremities: No leg edema. Impression: 1.Subdural hemorrhage. 2.Head injury. 3.Orthostatic hypotension. 4.Anemia. Plan: We will go ahead and continue midodrine 5 mg 3 times a day with scheduled time as per order. Metoprolol was discontinued yesterday evening. We will continue to monitor his vital signs including orthostatic changes and if necessary, we might consider going up on the dose of midodrine. Continue physical therapy under guidance of Dr. Le and I will see him tomorrow for followup. NA/MODL Voice ID: [id number] Report ID: [id number]
[2023-06-01] MEDS: ASPIRIN 81 MG CHEWABLE TABLET PO SCH (08:20)
[2023-06-01] MEDS: MIDODRINE HCL 5 MG TABLET PO SCH ×2 (12:10→17:25)
--- NOTE | 2023-06-01 13:17 | PN ---
Date of Progress Note: 06/01/2023 Subjective: The patient was seen this morning for followup. No new complaints or problems reported by him. Objective: Vital Signs: Reviewed. HEENT: Unremarkable except contusion on the left forehead with bruising of the left side of the face and neck unchanged. Lungs: Clear to auscultation. Heart: Sounds normal. Abdomen: Soft. Bowel sounds normal. No guarding, rigidity, tenderness, or distention. Extremities: No leg edema. Impression: 1.Subdural hemorrhage. 2.Orthostatic hypotension. 3.Anemia. Plan: We will go ahead and continue current medication. The patient is on midodrine 5 mg 3 times a day. I have asked nursing staff to check orthostatic vitals today and then we will decide whether we need to go up on the dose of midodrine or not. Physical Therapy to be continued under guidance of Clarisa Le. I will see him tomorrow for followup. NA/MODL Voice ID: [id number] Report ID: [id number]
--- NOTE | 2023-06-01 13:46 | P.RH.PN ---
Estimated Length of Stay: 13 Expected Discharge Date: 06/08/23 Discharge Disposition Plan: Home Family Support: Yes Halfway Goal: Mobility, Transfers, Self Care Vital Signs: Last Vital Signs Temp 97.4 F 06/01/23 08:00 Pulse 64 06/01/23 08:00 Resp 18 06/01/23 08:00 BP 127/59 L 06/01/23 08:00 Pulse Ox 97 06/01/23 08:00 Laboratory: Laboratory Last Values WBC 6.10 thou/uL (4.3-10.9) 05/30/23 03:42 RBC 2.84 M/uL (4.33-5.43) L 05/30/23 03:42 Hgb 9.7 g/dL (13.6-17.9) L 05/30/23 03:42 Hct 27.8 % (39.6-49.0) L 05/30/23 03:42 MCV 98.0 fL (80-100) 05/30/23 03:42 MCH 34.2 pg (27.0-35.0) 05/30/23 03:42 MCHC 34.9 g/dL (32.0-36.0) 05/30/23 03:42 RDW 14.4 % (12.1-15.2) 05/30/23 03:42 Plt Count 242 thou/uL (152-406) 05/30/23 03:42 MPV 7.5 fL (7.6-11.3) L 05/30/23 03:42 Neutrophils % 59.7 % (41.7-73.7) 05/30/23 03:42 Lymphocytes % 24.1 % (15.3-44.8) 05/30/23 03:42 Monocytes % 12.3 % (3.3-12.3) 05/30/23 03:42 Eosinophils % 3.3 % (0-4.4) 05/30/23 03:42 Basophils % 0.6 % (0-1.3) 05/30/23 03:42 Absolute Neutrophils 3.6 K/uL (1.8-8.0) 05/30/23 03:42 Absolute Lymphocytes 1.5 K/uL (0.7-4.9) 05/30/23 03:42 Absolute Monocytes 0.8 K/uL (0.1-1.3) 05/30/23 03:42 Absolute Eosinophils 0.2 K/uL (0-0.5) 05/30/23 03:42 Absolute Basophils 0.0 K/uL (0-0.5) 05/30/23 03:42 Sodium 141 mEq/L (136-145) 05/30/23 03:42 Potassium 4.0 mEq/L (3.5-5.1) 05/30/23 03:42 Chloride 110 mEq/L (98-107) H 05/30/23 03:42 Carbon Dioxide 29 mEq/L (21-32) 05/30/23 03:42 Anion Gap 6.0 mEq/L (5.0-15.0) 05/30/23 03:42 BUN 40 mg/dL (7-18) H 05/30/23 03:42 Creatinine 1.50 mg/dL (0.70-1.30) H 05/30/23 03:42 Est GFR (CKD-EPI) 44 ml/min (=/>90) L 05/30/23 03:42 Glucose 146 mg/dL (74-106) H 05/30/23 03:42 POC Glucose 183 mg/dL (65-120) H 06/01/23 11:43 Calcium 8.6 mg/dL (8.5-10.1) 05/30/23 03:42 Magnesium 1.9 mg/dL (1.6-2.4) 05/30/23 03:42 Albumin 2.5 g/dL (3.4-5.0) L 05/30/23 03:42 Prealbumin 14.1 mg/dL (20-40) L 05/30/23 03:42 Urine Color Colorless (Yellow) 05/29/23 21:24 Urine Clarity Clear (Clear) 05/29/23 21:24 Urine pH 6.0 (5.0-7.0) 05/29/23 21:24 Ur Specific [place] 1.007 (1.005-1.030) 05/29/23 21:24 Glucose (UA)(Auto) 2+ (Negative) H 05/29/23 21:24 Urine Ketones Negative (Negative) 05/29/23 21:24 Urine Blood Negative (Negative) 05/29/23 21:24 Urine Nitrite Negative (Negative) 04/16/24 21:24 Urine Bilirubin Negative (Negative) 05/29/23 21:24 Urine Urobilinogen Normal (Normal) 05/29/23 21:24 Ur Leukocyte Esterase Negative Lizeth/uL (Negative) 05/29/23 21:24 Urine RBC <5 /HPF (None Seen) 05/29/23 21:24 Urine WBC <5 /HPF (<5) 05/29/23 21:24 Ur Squamous Epith Cells None seen /HPF (None Seen) 05/29/23 21:24 Urine Bacteria None seen /HPF (<20) 05/29/23 21:24 Urine Culture Reflexed Not needed 05/29/23 21:24 Urine Total Protein Negative (Negative) 05/29/23 21:24 Weight: 146 lb Wound Present: No Closed Surgical Incision Present: No Negative Pressure Wound Therapy Present: No Physician Update: Blood work is stable. Mildly low prealbumin now on nepro. His SBP drops markedly with standing to 80. BIMS 12, SLUMS 19. Mild to moderate memory loss. SBA with transfers. Summary: Patient's care plan and salvage determiner goals have been reviewed and revised as necessary. Please see the Rehabilitation Signature page for all necessary signatures.
[2023-06-01] MEDS: NEPRO SHAKE 237 ML CAN PO SCH (20:00)
[2023-06-02] MEDS: MIDODRINE HCL 5 MG TABLET PO SCH (07:06)
[2023-06-02] MEDS: levoFLOXacin 250 MG TAB PO SCH (11:08)
--- NOTE | 2023-06-02 12:14 | PN ---
Date of Progress Note: 06/02/2023 Subjective: The patient was seen this morning for followup. No new complaints or problems reported by the patient. He was sitting in chair, complaining of bilateral foot pain, more so in the right fo ot than the left foot and it is in his toes. Left foot exam was unremarkable except about 2 mm small abrasion/scab type of area on the dorsum of the second toe. On the right foot, he has similar small abrasion on dorsum of multiple toes and he is complaining of pain in his second, third, and fourth t oe. There was small amount of fresh bleeding noted coming from nail bed area on the third toe of the right foot. Nurse was instructed to clean it with saline solution, apply Neosporin, and then cover it with sterile dressing. Peripheral pulses: Unable to feel pulse on both feet. Skin appears gardenia l color. No evidence of any cyanosis. No evidence of any redness, warmness. No swelling of foot or toes. Physical Examination: Vital Signs: Temperature this morning 97.2; pulse 66; respiratory rate 16; blood pressure 126/67 in supine, 64/43 sitting, and 68/37 standing. Laboratory Data: Urine culture grew klebsiella and enterobacter, both sensitive to Cipro and Levaqui n type of antibiotic. Impression: 1.Urinary tract infection. 2.Orthostatic hypotension. 3.Peripheral vascular disease. Plan: The patient is on aspirin and we will continue that. We will go ahead and get an arterial Dop pler on both lower extremities. Continue current midodrine 10 mg 3 times a day and this dose was inc reased yesterday; prior to that, he was taking 5 mg 3 times a day. Start the patient on Levaquin for urinary tract infection. I will see him tomorrow for followup. NA/MODL Voice ID: [id number] Report ID: [id number]
--- NOTE | 2023-06-02 16:31 | RAD REPORT ---
EXAM DESCRIPTION: US - Lower Extremity Arterial Bilat - 06/02/2023 4:00 pm CLINICAL HISTORY: PVD, foot pain COMPARISON: No comparisons TECHNIQUE: Bilateral lower extremity arterial Doppler examination was performed with marlon rios FINDINGS: Biphasic waveforms are seen throughout both lower extremity arterial systems to the level of the dorsalis pedis arteries. IMPRESSION: Mild bilateral peripheral vascular disease throughout both lower extremities.
[2023-06-03 05:47] LABS: Hemoglobin 9.8 g/dL (13.6-17.9); RBC Red Blood Cell Count 2.93 M/uL (4.33-5.43)
[2023-06-03 05:48] LABS: Absolute Eosinophils 0.2 K/uL (0-0.5); Absolute Lymphocytes (CBC) 1.5 K/uL (0.7-4.9); Absolute Monocytes 0.6 K/uL (0.1-1.3); Basophils % 0.6 % (0-1.3); Eosinophils % 3.5 % (0-4.4); Hematocrit 29.2 % (39.6-49.0); Lymphocytes % 23.6 % (15.3-44.8); MCH 33.3 pg (27.0-35.0); MCHC 33.5 g/dL (32.0-36.0); MCV 99.6 fL (80-100); MPV 7.1 fL (7.6-11.3); Monocytes % 9.8 % (3.3-12.3); Neutrophils % 62.5 % (41.7-73.7); Platelets 277 thou/uL (152-406); Red Cell Distribution Width 14.9 % (12.1-15.2)
[2023-06-03 06:03] LABS: Anion Gap 8.5 mEq/L (5.0-15.0); Potassium 4.5 mEq/L (3.5-5.1)
--- NOTE | 2023-06-03 11:35 | PN ---
Date of Progress Note: 06/03/2023 Subjective: The patient was seen this morning for followup, no new complaints or problems reported b y patient. He was lying in bed, not in distress. Reports that since he took the socks off, discomfo rt in his feet has resolved completely. Objective: Vital Signs: Reviewed. HEENT: Unremarkable. Lungs: Clear to auscultation. Heart: Sounds normal. Abdomen: Soft, bowel sounds normal. No guarding, rigidity, tenderness, distention. Extremities: No leg edema. Laboratory Data: White count 6.4, hemoglobin 9.8, platelets 277. Sodium 138, potassium 4.5, chlorid e 106, bicarb 28, BUN 40, creatinine 1.48, glucose 195. Arterial Doppler of both lower extremity had shown mild bilateral peripheral vascular disease. Impression: 1.Subarachnoid hemorrhage. 2.Peripheral vascular disease. 3.Chronic kidney disease. 4.Anemia. 5.Orthostatic hypotension. Plan: We will go ahead and continue current midodrine as per order. He is getting 10 mg 3 times a d ay. No need for further intervention for peripheral vascular disease and continue his aspirin. Cont inue current antibiotic for urinary tract infection and I have discussed test results with the patient. I will see him tomorrow for followup. NA/MODL Voice ID: [id number] Report ID: [id number]
[2023-06-04] MEDS: DOCUSATE NA/SENNA CONC 1 TAB PO SCH (20:00)
--- NOTE | 2023-06-04 20:37 | PN ---
Date of Progress Note: 06/04/2023 Subjective: The patient was seen this morning for followup. No new complaints or problems reported by the patient. He was lying in bed, not in distress. Objective: Vital Signs: Reviewed. HEENT: Unremarkable. Lungs: Clear to auscultation. Heart: Sounds normal. Abdomen: Soft. Bowel sounds normal. No guarding, rigidity, tenderness, distention. Extremities: No leg edema. Impression: 1.Left subdural hemorrhage. 2.Orthostatic hypotension. 3.Urinary tract infection. Plan: We will go ahead and continue current midodrine. Continue aspirin and we will continue physic al therapy under guidance of Dr. Le. The patient is on antibiotic for urinary tract infection and we will continue that. I will see him tomorrow for followup. Plan of treatment discussed with bessy chiu. NA/ANA MARÍA Voice ID: [id number] Report ID: [id number]
--- NOTE | 2023-06-05 01:22 | PN ---
Date of Progress Note: 06/04/2023 Time Of Service: 1:35 p.m. Subjective: Mr. Castellanos is lying in bed. He is in no significant distress. He has no complaints. He did have some questions and concerns about the left area of hematoma in the frontal region and the sc alp and about potential comparisons of scans of the head to show if there is change or no change in h is intracerebral hemorrhage after he fell. Otherwise, he is doing pretty well. Pain is well managed . Mood is good he says. Review of Systems: No significant myalgias or arthralgias, although mildly so on the left side, left neck and head. Oth erwise, no new complaints on review of systems. Physical Examination: Vital Signs: Blood pressure 120/58, pulse 74, respiratory rate 16, temperature 97.5. He did have si gnificant orthostatics on the . When sitting, blood pressure 122/88 and pulse 113 and then while standing, blood pressure 80/50 and pulse 88. He was symptomatic. Laboratory Studies: White blood cell count 6.4, hemoglobin 9.8, platelets 277. Blood sugars ranged from 156 to 281. X-ray/imaging: No new x-rays or imaging. He did have a Doppler study done on 06/01. The study show ed mild bilateral peripheral vascular disease throughout both lower extremities. Medications: Tylenol 1000 mg every 8 hours as needed, vitamin C 500 mg daily, aspirin 81 mg daily, L ipitor 40 mg at bedtime, vitamin D 5000 units daily, vitamin B12 1000 mcg daily, Ensure Enlive 237 mL twice daily, Nepro shake 237 mL twice daily, ferrous sulfate 325 mg daily, gabapentin 300 mg twice d aily, levothyroxine 250 mg daily, Synthroid 0.137 mg daily, magnesium oxide 400 mg daily, melatonin 1 0 mg at bedtime, midodrine 10 mg twice daily, and Senokot-S 2 at bedtime. Progress Made With Physical And Occupational Therapy: Today with physical therapy, again there was s ignificant orthostatic hypotension noted. He completed dau-vf-manrr transfers with contact guard ass istance, fqpvy-cq-mdkmj transfers also with contact guard assistance. He did mobilize a wheelchair 1 75 feet twice and another 100 feet with standby assistance. Unable to ambulate secondary to signific ant drop in his blood pressure. With occupational therapy, again significant drop in blood pressure to the bed mobility exercises, did self propel a wheelchair from room to toilet, did feel dizzy, symp tomatic. There was drop in blood pressure. Fluid management is done at Dr. Serrano's help. Mr. Castellanos is making slow progress, somewhat limited by orthostatic hypotension. The patient may have a repeat head CT scan to be compared with one done from [facility]. The patient's daughter will attempt to get a hold of the prior imaging disc, so that a repeat study could be done and a comparison made. T he physician at [facility] did request that the patient followup with them for further evaluation of the in tracerebral hemorrhage. The patient did voice that he wanted to stay local and not go back to [facility]. However, they did indicate that they want to see him at least for 1 followup visit before he may fol low up outside of the system and plan physical and occupational therapy to be continued, all medicati ons to be continued as noted. Assessment: Mr. 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 He has anemia, coronary artery disease, atrial fibrillation, chronic kidney disease, decreased mobility, decreased physical f unctioning, dyslipidemia, hypertension, hyponatremia, orthostatic hypotension, obstructive sleep apne a, and recurrent falls. Plan: 1.We will continue with physical, occupational, and speech therapy for 3.5 hours, 5 of 7 days. 2.Prior imaging will be obtained of the brain to compare with a new CT scan. 3.All medications continued as noted and he is managed by Dr. Serrano, his primary care physician. Comorbidities That Are Impacting Rehabilitation: At this point, orthostatic hypotension is a signifi cant issue, making it difficult for him to stand and ambulate as he has at high risk of falling, like ly the reason for his fall with a subdural hematoma he suffered. He will have BHAVANA hose, abdominal binders, pressure support with midodrine and Florinef, and hydration . LB/MODL Voice ID: [id number] Report ID: [id number]
--- NOTE | 2023-06-06 07:53 | PN ---
Date of Progress Note: 06/05/2023 Subjective: The patient was seen this morning for followup. He was lying in bed, not in distress, d enies any complaints. No headache, nausea, vomiting. Denies any abdominal pain. Objective: Vital Signs: Reviewed. HEENT: Unremarkable. Lungs: Clear to auscultation. Heart: Sounds normal. Abdomen: Soft. Bowel sounds normal. No guarding, rigidity, tenderness, distention. Extremities: No leg edema. Impression: 1.Left subdural hemorrhage. 2.Orthostatic hypotension. 3.Urinary tract infection. Plan: We will go ahead and continue current aspirin 81 mg daily. Continue physical therapy under gu idance of Dr. Le and we will continue current midodrine. Check orthostatic vital signs today. The patient is on midodrine 10 mg 3 times a day and he is scheduled to go home this week on Sunday a nd he lives at home by himself. He does have a caregiver who comes on a daily basis for few hours an d his daughter and son also takes care of him, but there are times that he is left alone by himself a nd I did discuss with him today and expressed my concern about him being by himself at home, and malia mmended that my suggestion is for him to have somebody with him all the time as today he reported mikaela t while he was sitting on the commode and when he tried to get up, he really felt his entire body was weak and he had trouble getting up and this is exactly what my concern is for him living alone, so he will talk to his family about this. NA/MODL Voice ID: [id number] Report ID: [id number]
--- NOTE | 2023-06-06 23:44 | PN ---
Date of Progress Note: 06/06/2023 Time Of Service: 1:25 p.m. Subjective: Ms. Castellanos is resting in bed. He is in good spirits, happy that he is doing well with the rapy. Still has a left frontal hematoma on the scalp and bruising over the left face, arm, and neck area. Review of Systems: Denies any significant pain. No myalgias or arthralgias. No other complaints on review of systems. Physical Examination: Vital Signs: Blood pressure 140/65, pulse of 101 while lying. While standing, blood pressure droppe d to 90/50, pulse of 93. General: The patient had transient dizziness still, but is able to keep standing and said he did not necessarily feel as though he needed to immediately sit down. HEENT: Otherwise in terms of exam, the area of hematoma in the left scalp still present. Bruising i n the left face, neck, arm is present. Lungs: Otherwise good air movement. Abdomen: Soft. Extremities: No significant edema in the extremities. Laboratory Studies: Blood sugars ranged from 142 to 212. X-ray/imaging: No new x-rays or imaging. Medications: Medications have been reviewed. Dr. Serrano did adjust his midodrine to 10 mg twice daily , which appears to be helping somewhat with his orthostatic hypotension. Continue Synthroid 0.137 mg daily, levofloxacin continued to 50 mg daily. All of medications as noted continue as previously. Progress Made With Physical, Occupational, And Speech Therapy: Today with physical therapy, he was a ble to exercise bicycle ergometer for 25 minutes. He had had some difficulty keeping his feet on the pedals. He ambulated 50 feet with standby assistance using a rolling walker. He completed bed mobi lity with standby assistance with supervision standby assistance. Rzp-ws-aeftl transfers done with c ontact guard assistance. With occupational therapy, opk-bl-beyrn transfers with contact guard assist ance. Wheelchair mobilization. He did use abdominal binder and BHAVANA hose with supervision. Dixiein tim speech therapy, concrete categories were labeled with 100% accuracy. Short-term memory task comple bhavana with maximum cues and 70% accuracy. Four words were sequenced into sentences with 90% accuracy w ith minimum assistance. Mr. Castellanos is making good progress overall with his physical, occupational, and speech therapy. Assessment: Mr. Castellanos is an 88-year-old patient with a traumatic closed head injury. He has a left f rontal convexity subdural hematoma and external clot on the left forehead. He also has anemia, coron aayush artery disease, atrial fibrillation, chronic kidney disease, decreased mobility, decreased physic al functioning, dyslipidemia, hypertension, orthostatic hypotension, obstructive sleep apnea, with re current falls. Plan: 1.He will continue with physical, occupational, and speech therapy for 3.5 hours, 5 of [address] scan of his head may be done, however, the images from the outside [facility] will be sought so that the comparisons can be made. 3.His comorbid conditions are managed by primary care physician, Dr. Serrano, and those medications are continuing. Comorbidities That Are Impacting Rehabilitation: His biggest issue is significant orthostatic hypote nsion, which has resulted in multiple falls in the past and is likely to result in additional falls. His midodrine has been adjusted by increasing the dosage of 10 mg 3 times daily along with Florinef. He will have BHAVANA hose and abdominal binders when mobilizing and he does have increase in his hydrat ion to help as well. LB/MODL Voice ID: [id number] Report ID: [id number]
--- NOTE | 2023-06-06 23:50 | PN ---
Date of Progress Note: 06/06/2023 Subjective: The patient was seen this morning for followup. He was lying in bed, not in any distres s. Denies any complaints this morning. Objective: Vital Signs: Reviewed. HEENT: Unremarkable. Lungs: Clear to auscultation. Heart: Sounds normal. Abdomen: Soft. Bowel sounds normal. No guarding, rigidity, tenderness, distention. Extremities: No leg edema. Impression: 1.Orthostatic hypotension. 2.Subdural hemorrhage, left side. 3.Chronic kidney disease. 4.Anemia. Plan: We will go ahead and continue current midodrine per order. Continue physical therapy under gu idance of Dr. Le. The patient is on Levaquin for urinary tract infection and will continue mikaela t. The patient was encouraged to drink adequate amount of water as per instruction. I will see him tomorrow for followup. NA/MODL Voice ID: [id number] Report ID: [id number]
[2023-06-07 04:00] LABS: Absolute Eosinophils 0.3 K/uL (0-0.5); Absolute Lymphocytes (CBC) 1.5 K/uL (0.7-4.9); Absolute Monocytes 0.8 K/uL (0.1-1.3); Absolute Neutrophil 3.7 K/uL (1.8-8.0); Basophils % 0.6 % (0-1.3); Eosinophils % 4.1 % (0-4.4); Hematocrit 29.2 % (39.6-49.0); Hemoglobin 9.9 g/dL (13.6-17.9); Lymphocytes % 24.1 % (15.3-44.8); MCH 33.8 pg (27.0-35.0); MCHC 33.8 g/dL (32.0-36.0); MCV 99.9 fL (80-100); MPV 7.7 fL (7.6-11.3); Monocytes % 12.4 % (3.3-12.3); Neutrophils % 58.8 % (41.7-73.7); Platelets 263 thou/uL (152-406); RBC Red Blood Cell Count 2.92 M/uL (4.33-5.43)
[2023-06-07 04:21] LABS: Albumin 2.8 g/dL (3.4-5.0); Anion Gap 7.5 mEq/L (5.0-15.0); Magnesium 2.4 mg/dL (1.6-2.4); Potassium 4.5 mEq/L (3.5-5.1); Prealbumin 17.1 mg/dL (20-40)
[2023-06-07] MEDS: FERROUS SULFATE 325 MG TAB PO SCH (11:36)
--- NOTE | 2023-06-08 00:25 | PN ---
Date of Progress Note: 06/07/2023 Time Of Service: 1:30 p.m. Subjective: Mr. Castellanos is lying in bed. He is very happy with his therapy. He still has moderate are a of swelling in the left forehead where he impacted his head after falling, improved but slowly to a slight degree the bruising on his left face, neck, and upper extremity. Review of Systems: No fevers, chills, nausea, vomiting, myalgias, arthralgias, rash, headache, or weight change. Physical Examination: Vital Signs: Blood pressure 117/65, pulse 65, respiratory rate 18, temperature 97.3, and saturation 98%. Neuro: He did have some improvement in his orthostatics after an adjustment of midodrine dosage. Ot herwise, again unchanged in terms of the swelling of left scalp area and bruising. Chest: Good air movement. Abdomen: Soft. Extremities: No cyanosis or edema. Laboratory Studies: White blood cell count 6.4, hemoglobin 9.9, platelets 263. Sodium 139, potassiu m 4.5, chloride 106, carbon dioxide 30, BUN 56, creatinine 1.78, glucose ranged from 134 to 258, calc ium 8.9, magnesium 2.4, albumin 2.8, prealbumin 17.1. X-ray/imaging: No x-rays or imaging. Medications: Medications have been reviewed and are unchanged. Progress Made With Physical, Occupational, And Speech Therapy: Today with physical therapy, he is ab le to demonstrate good gait technique, completed a rolling walker 15 feet with minimum assistance. D id have some shaking as he ambulated. Blood pressure did drop to 80/51 and heart rate 114. He did m obilize a wheelchair 750 feet independently during the afternoon, did refuse to walk in the afternoon and is very worried about falling. Bed mobility done with modified independence. With occupational therapy, toilet hygiene with contact guard assistance for donning and doffing pull-up, supervision f or rbpldh-sm-grw transfer, standby assistance for edge of bed to wheelchair transfer. He did have so me jerking with movement. With speech therapy, he improved his BIMS score from 12 to 15 which is nor mal. SLUMS score from 19 to 22 which did indicate cognitive deficits are mild. Mr. Castellanos did very good progress with his physical, occupational, and speech therapy, but he still nee ds more therapy to keep improving and he remains a very high risk of falling because of severe orthos tatic hypotension. His best way of mobilization is likely wheelchair and ochtq-ai-wlhbz transfers. Assessment: Mr. Castellanos is an 88-year-old patient in the rehabilitation unit with left frontal convexit y trauma. He does have a subdural hematoma and an external clot on the left forehead. He has severe orthostatic hypotension with multiple prior falls and high risk of continued falls. He has atrial f ibrillation, decreased mobility, decreased physical functioning, chronic kidney disease, hypertension , chronic obstructive pulmonary disease. Plan: 1.Continue with physical, occupational, and speech therapy for now. 2.Whenever he mobilizes, he requires abdominal binders and BHAVANA hose. He has increased midodrine dos age, Florinef also on board, and again mobilization best by wheelchair. 3.He should continue therapy via Home Health. Comorbidities That Are Impacting His Rehabilitation: As noted previously, severe orthostatic hypoten megan is a limiting factor and the patient is likely to fall multiple times as he tries to mobilize. He should be largely mobilizing by wheelchair, but still requires therapy to ambulate with the therap ist, probably 2 therapists with gait belt and BHAVANA hose, abdominal binders and wheelchair following. LB/MODL Voice ID: [id number] Report ID: [id number]
[2023-06-08] MEDS: ACETAMINOPHEN 500 MG TAB PO PRN (03:42)
--- NOTE | 2023-06-08 13:27 | P.RH.PN ---
Estimated Length of Stay: 13 Expected Discharge Date: 06/09/23 Discharge Disposition Plan: Home Family Support: Yes Detention Goal: Mobility, Transfers, Self Care Vital Signs: Last Vital Signs Temp 97.2 F 06/08/23 07:10 Pulse 71 06/08/23 07:10 Resp 18 06/08/23 07:10 BP 120/58 L 06/08/23 07:10 Pulse Ox 97 06/08/23 07:10 Laboratory: Laboratory Last Values WBC 6.40 thou/uL (4.3-10.9) 06/07/23 03:32 RBC 2.92 M/uL (4.33-5.43) L 06/07/23 03:32 Hgb 9.9 g/dL (13.6-17.9) L 06/07/23 03:32 Hct 29.2 % (39.6-49.0) L 06/07/23 03:32 MCV 99.9 fL (80-100) 06/07/23 03:32 MCH 33.8 pg (27.0-35.0) 06/07/23 03:32 MCHC 33.8 g/dL (32.0-36.0) 06/07/23 03:32 RDW 15.0 % (12.1-15.2) 06/07/23 03:32 Plt Count 263 thou/uL (152-406) 06/07/23 03:32 MPV 7.7 fL (7.6-11.3) 06/07/23 03:32 Neutrophils % 58.8 % (41.7-73.7) 06/07/23 03:32 Lymphocytes % 24.1 % (15.3-44.8) 06/07/23 03:32 Monocytes % 12.4 % (3.3-12.3) H 06/07/23 03:32 Eosinophils % 4.1 % (0-4.4) 06/07/23 03:32 Basophils % 0.6 % (0-1.3) 06/07/23 03:32 Absolute Neutrophils 3.7 K/uL (1.8-8.0) 06/07/23 03:32 Absolute Lymphocytes 1.5 K/uL (0.7-4.9) 06/07/23 03:32 Absolute Monocytes 0.8 K/uL (0.1-1.3) 06/07/23 03:32 Absolute Eosinophils 0.3 K/uL (0-0.5) 06/07/23 03:32 Absolute Basophils 0.0 K/uL (0-0.5) 06/07/23 03:32 Sodium 139 mEq/L (136-145) 06/07/23 03:32 Potassium 4.5 mEq/L (3.5-5.1) 06/07/23 03:32 Chloride 106 mEq/L (98-107) 06/07/23 03:32 Carbon Dioxide 30 mEq/L (21-32) 06/07/23 03:32 Anion Gap 7.5 mEq/L (5.0-15.0) 06/07/23 03:32 BUN 56 mg/dL (7-18) H 06/07/23 03:32 Creatinine 1.78 mg/dL (0.70-1.30) H 06/07/23 03:32 Est GFR (CKD-EPI) 36 ml/min (=/>90) L 06/07/23 03:32 Glucose 201 mg/dL (74-106) H 06/07/23 03:32 POC Glucose 250 mg/dL (65-120) H 06/08/23 11:39 Calcium 8.9 mg/dL (8.5-10.1) 06/07/23 03:32 Magnesium 2.4 mg/dL (1.6-2.4) 06/07/23 03:32 Albumin 2.8 g/dL (3.4-5.0) L 06/07/23 03:32 Prealbumin 17.1 mg/dL (20-40) L 06/07/23 03:32 Urine Color Colorless (Yellow) 05/29/23 21:24 Urine Clarity Clear (Clear) 05/29/23 21:24 Urine pH 6.0 (5.0-7.0) 05/29/23 21:24 Ur Specific [place] 1.007 (1.005-1.030) 05/29/23 21:24 Glucose (UA)(Auto) 2+ (Negative) H 05/29/23 21:24 Urine Ketones Negative (Negative) 05/29/23 21:24 Urine Blood Negative (Negative) 05/29/23 21:24 Urine Nitrite Negative (Negative) 05/29/23 21:24 Urine Bilirubin Negative (Negative) 05/29/23 21:24 Urine Urobilinogen Normal (Normal) 05/29/23 21:24 Ur Leukocyte Esterase Negative Lizeth/uL (Negative) 05/29/23 21:24 Urine RBC <5 /HPF (None Seen) 05/29/23 21:24 Urine WBC <5 /HPF (<5) 05/29/23 21:24 Ur Squamous Epith Cells None seen /HPF (None Seen) 05/29/23 21:24 Urine Bacteria None seen /HPF (<20) 05/29/23 21:24 Urine Culture Reflexed Not needed 05/29/23 21:24 Urine Total Protein Negative (Negative) 05/29/23 21:24 Weight: 146 lb Wound Present: No Closed Surgical Incision Present: No Negative Pressure Wound Therapy Present: No Physician Update: Labs reviewed. He still has significant orthostatic hypoten megan. Mild to moderate pain in his head and neck. He will likely require SNF with more time to improve strength. BIMS now 15, SLUMS 22. RW 15' before he starts shaking and would lose balance. Add NACL 1 gram BID. Summary: Patient's care plan and remote computer terminal operator goals have been reviewed and revised as necessary. Please see the Rehabilitation Signature page for all necessary signatures.
[2023-06-08] MEDS: SODIUM CHLORIDE 1 GM TAB PO SCH (17:01)
--- NOTE | 2023-06-08 17:29 | PN ---
Date of Progress Note: 06/08/2023 Subjective: Patient was seen this morning for followup. No new complaints or problems reported by t he patient. He was sleeping, easily arousable, not in any distress. Objective: Vital Signs: Reviewed. HEENT: Unremarkable except small hematoma on the left frontal scalp. It is slightly smaller compare d to what it was and bruising from the left side of the face and left side of the neck is significant ly better than before. Lungs: Clear to auscultation. Heart: Sounds normal. Abdomen: Soft. Bowel sounds normal. No guarding, rigidity, tenderness, distention. Extremities: No leg edema. Impression: 1.Subdural hemorrhage. 2.Orthostatic hypotension. 3.Urinary tract infection. 4.Anemia. 5.Chronic kidney disease. Plan: We will go ahead and continue current midodrine and we will discontinue antibiotic either toda y or tomorrow. Today, during meeting with the rehab floor and family for discharge planning, emily n will be made regarding discharge, but my recommendation is for patient to have 24-hour care as it i s not safe for him to be by himself because of risk of fall and injury and I have communicated this with the nursing staff today and she has communicated with the immigration case worker and this will be dis cussed during meeting today. NA/MODL Voice ID: [id number] Report ID: [id number]
[2023-06-08] MEDS: GLUCERNA SHAKE 237 ML CAN PO SCH (19:13)
[2023-06-08] MEDS: DOCUSATE NA/SENNA CONC 1 TAB PO PRN (19:13)
--- NOTE | 2023-06-09 14:51 | PN ---
Date of Progress Note: 06/09/2023 Subjective: The patient was seen this morning for followup. No new complaints, problems reported by the patient. He was lying in bed, not in distress. Denies any headache, nausea, vomiting. No ches t pain. No shortness of breath. Physical Examination: Vital signs: Reviewed. Temperature 97, respiratory rate 17, oxygen saturation 95%. Blood pressure supine was 120/60 and sitting blood pressure was 97/55. HEENT: Unremarkable except presence of small hematoma on the left frontal scalp and contusion from t he left side of the face and neck has improved over period of this hospitalization. Lungs: Clear to auscultation. Heart: Sounds normal. Abdomen: Soft, bowel sounds normal. No guarding, rigidity, tenderness, distention. Extremities: No leg edema. Impression: 1.Left subdural hemorrhage. 2.Orthostatic hypotension. 3.Urinary tract infection. 4.Chronic kidney disease. Plan: We will go ahead and continue current midodrine and continue physical therapy under guidance o davis Le. We will discontinue antibiotic therapy, Levaquin after dose today. I will see him t omorrow for followup. For his diabetes, I would like to consider to get him started on Tradjenta 5 mg daily, but that is not available at the hospital and we will consid er that upon discharge. NA/MODL Voice ID: [id number] Report ID: [id number]
[2023-06-10] MEDS: DOCUSATE NA/SENNA CONC 1 TAB PO SCH (08:35)
--- NOTE | 2023-06-10 12:21 | PN ---
Date of Progress Note: 06/10/2023 Subjective: The patient was seen this morning for followup. He was lying in bed, not in any distres s. Denies any complaints this morning when I saw him. Physical Examination: Vital signs: Reviewed. Temperature 97.4, respiratory rate 17, supine blood pressure 115/56, sitting 92/51 and standing 89/51. HEENT: Unremarkable except presence of small hematoma on the left forehead, which is smaller than be fore. Lungs: Clear to auscultation. Heart: Sounds normal. Abdomen: Soft. Bowel sounds normal. No guarding, rigidity, tenderness, distention. Extremities: No leg edema. Impression: 1.Left subdural hemorrhage. 2.Orthostatic hypotension. 3.Chronic kidney disease. Plan: We will go ahead and continue current midodrine. The patient was encouraged to drink adequate amount of water and continue physical therapy under guidance of Dr. Le. I will see him tomorr ow for followup. I have encouraged him to drink 50-60 ounce water daily. NA/MODL Voice ID: [id number] Report ID: [id number]
[2023-06-11 07:18] LABS: Absolute Eosinophils 0.2 K/uL (0-0.5); Absolute Lymphocytes (CBC) 1.8 K/uL (0.7-4.9); Absolute Monocytes 0.7 K/uL (0.1-1.3); Absolute Neutrophil 4.2 K/uL (1.8-8.0); Basophils % 0.6 % (0-1.3); Eosinophils % 3.3 % (0-4.4); Hematocrit 29.2 % (39.6-49.0); Hemoglobin 10.2 g/dL (13.6-17.9); Lymphocytes % 25.8 % (15.3-44.8); MCH 34.8 pg (27.0-35.0); MCHC 34.9 g/dL (32.0-36.0); MCV 99.9 fL (80-100); MPV 7.4 fL (7.6-11.3); Monocytes % 9.5 % (3.3-12.3); Neutrophils % 60.8 % (41.7-73.7); Nucleated Red Blood Cells % 0.1 % (0-0); Platelets 265 thou/uL (152-406); RBC Red Blood Cell Count 2.92 M/uL (4.33-5.43); Red Cell Distribution Width 15.3 % (12.1-15.2)
[2023-06-11 07:28] VITALS: BP 119/65; TEMP 98
[2023-06-11 07:40] LABS: Anion Gap 8.5 mEq/L (5.0-15.0); Potassium 4.5 mEq/L (3.5-5.1)
--- NOTE | 2023-06-12 02:21 | PN ---
Date of Progress Note: 06/11/2023 Time Of Service: 1:15 p.m. Subjective: Mr. Castellanos is resting in bed. He is ready for discharge, which will be today. The left f orehead area of swelling has decreased in size. There is still hyperemia noted, and there is bruisin g of the left neck where he fell, but has no new complaints. Review of Systems: No fevers, chills, nausea, vomiting, myalgias, arthralgias. No complaints. Physical Examination: Vital Signs: Blood pressure 128/64, pulse of 100. When standing, blood pressure dropped to 98/54, p ulse of 108. Musculoskeletal: He was mildly symptomatic. Otherwise, he has no focal deficits, just diffuse weakn ess, upper and lower extremities, especially if he tries to stand and ambulate. Laboratory Studies: White blood cell count 7.0, hemoglobin 10.2, platelets 265. Sodium 139, potassi um 4.5, chloride 108, carbon dioxide 27, BUN 43, creatinine 1.57, glucose ranged from 141 to 193, loyd cium 8.9. X-ray/imaging: No new x-rays or imaging. Progress Made With Physical, Occupational, And Speech Therapy: With physical therapy, he is ready fo r discharge. He was able to ambulate 500 feet with good tolerance and using a rolling walker. He is able to go up and down 15 steps with good tolerance. Did have poor safety awareness, poor endurance , poor balance. Mobilized wheelchair 500 feet with good tolerance. Car transfer, [id number] satnam hnique with rolling walker and bed rails. With his occupational therapy, at discharge, he was at sup ervision due to orthostasis for his transfers from bed to chair to shower. Independent for grooming. Supervision for bathing. Upper body dressing, independent. Lower body dressing, supervision. Ulises beltraning, independent. It is recommended for 24 hours supervision as the patient is not likely to be a ble to do well at home as he would likely fall and have further injury. [facility]. Regarding his speech therapy, he did demonstrate divergent naming skill s for an average of 11 for 1 minute. He did not meet the goal of 15 in a minute. He had made 3 of 4 speech therapy goals. It is recommended that he continue with speech therapy to continue to improve . Mr. Castellanos has made great progress, but still has significant orthostatic hypotension and at very high fall risk, where he has fallen multiple times. He is now being discharged to a [facility] to continue therapy and improve strength. Assessment And Plan: Mr. Castellanos is in the rehabilitation unit with left frontal convexity traumatic trevizo bdural hematoma. There was an external swelling of the left forehead where he banged the head. He h as severe orthostatic hypotension with multiple falls and continued fall risk. Comorbidities are atr ial fibrillation, decreased physical function, decreased mobility, chronic kidney disease, hypertensi on, chronic obstructive pulmonary disease, malnutrition, and anemia. Plan: He will be discharged later today to SNF. In the meantime, all his medications are continued. He has BHAVANA hose, abdominal binder, pressure support with midodrine and Florinef, and his comorbid c ondition medications are continued. Comorbidities That Are Impacting Rehabilitation: Again, the single biggest factor is his significant orthostatic hypotension, which on multiple occasions have led to falls in the past and are likely to continue doing so in the future, specially if he is not well hydrated and does not use BHAVANA hose, abd ominal binders, and his pressure support with midodrine and Florinef. Again, he is discharged to [facility] to continue therapy. LB/MODL Voice ID: [id number] Report ID: [id number]
== END 2023-06-11 15:40 | DRG 949 ==
LOC: 5TH 20:51
PROVIDERS: ADMIT Psychiatry & Neurology Neurology with Special Qualifications in Child Neurology; ATTEND Internal Medicine
DX: S06.5XAD Traumatic subdural hemorrhage with loss of consciousness status unknown, subsequent encounter (principal); E46 Unspecified protein-calorie malnutrition; E87.1 Hypo-osmolality and hyponatremia; N18.4 Chronic kidney disease, stage 4 (severe); N39.0 Urinary tract infection, site not specified; S00.03XD Contusion of scalp, subsequent encounter; G62.9 Polyneuropathy, unspecified; E03.9 Hypothyroidism, unspecified; G47.33 Obstructive sleep apnea (adult) (pediatric); E78.5 Hyperlipidemia, unspecified; I25.10 Atherosclerotic heart disease of native coronary artery without angina pectoris; I48.0 Paroxysmal atrial fibrillation; I35.0 Nonrheumatic aortic (valve) stenosis; E11.649 Type 2 diabetes mellitus with hypoglycemia without coma; E11.22 Type 2 diabetes mellitus with diabetic chronic kidney disease; I12.9 Hypertensive chronic kidney disease with stage 1 through stage 4 chronic kidney disease, or unspecified chronic kidney disease; N18.9 Chronic kidney disease, unspecified; M15.9 Polyosteoarthritis, unspecified; D63.1 Anemia in chronic kidney disease; D50.9 Iron deficiency anemia, unspecified; I95.1 Orthostatic hypotension; K57.90 Diverticulosis of intestine, part unspecified, without perforation or abscess without bleeding; D46.9 Myelodysplastic syndrome, unspecified; I73.9 Peripheral vascular disease, unspecified; G47.00 Insomnia, unspecified; Z95.1 Presence of aortocoronary bypass graft; Z95.0 Presence of cardiac pacemaker; Z68.21 Body mass index [BMI] 21.0-21.9, adult
CPT/HCPCS: 36415; 80048; 81001; 82040; 82947; 83735; 84134; 85025; 87077; 87086; 87088; 87186; 92507; 92523; 93925; 97110; 97112; 97116; 97129; 97163; 97165; 97530; 97542; J1815